=== PATIENT | female | born 1960 | race Caucasian/White ===

== ENCOUNTER 2022-10-28 23:31 | Inpatient (IN) | payer MEDICARE, OTHER ==
[2022-10-28] MEDS ORDERED: SODIUM CHLORIDE 0.9% 1,000 ML IV STA (23:59)
[2022-10-29 00:34] LABS: ALT 32 U/L (4-34); AST 130 U/L (14-36); African American GFR (CKD) 64 (>60 ml/min/1.73 sqM); Albumin 3.3 g/dL (3.5-5.0); Alkaline Phosphatase 78 U/L (38-126); Blood Urea Nitrogen 56 mg/dL (7-17); Calcium 7.3 mg/dL (8.4-10.2); Glucose 105 mg/dL (74-99); Magnesium 2.3 mg/dL (1.6-2.3); Non-African American GFR(CKD) 55 (>60 ml/min/1.73 sqM); Total Bilirubin 0.8 mg/dL (0.2-1.3); Total Protein 7.1 g/dL (6.3-8.2)
[2022-10-29 00:35] LABS: Basophils % (A) 0 %; Eosinophils # (A) 0.1 k/uL (0-0.7); Eosinophils % (A) 1 %; HCT 29.7 % (34.0-46.0); HGB 10.6 gm/dL (11.4-16.0); Lymphocytes # (A) 1.3 k/uL (1.0-4.8); Lymphocytes % (A) 11 %; MCH 28.3 pg (25.0-35.0); MCHC 35.9 g/dL (31.0-37.0); Mean Platelet Volume 7.9; Monocytes # (A) 0.5 k/uL (0-1.0); Monocytes % (A) 4 %; Neutrophils # (A) 9.6 k/uL (1.3-7.7); Neutrophils % (A) 83 %; Platelet Count 283 k/uL (150-450); RBC 3.76 m/uL (3.80-5.40); RDW 15.6 % (11.5-15.5); WBC 11.6 k/uL (3.8-10.6)
[2022-10-29 00:40] LABS: Anion Gap 13 mmol/L
[2022-10-29 00:49] LABS: Chloride 60 mmol/L (98-107); Potassium 2.7 mmol/L (3.5-5.1); Sodium 116 mmol/L (137-145)
[2022-10-29 00:53] LABS: Carbon Dioxide 43 mmol/L (22-30)
[2022-10-29] MEDS ORDERED: SODIUM CHLORIDE 0.9% 500 ML 500 ML IV STA (00:54)
[2022-10-29] MEDS ORDERED: POTASSIUM CHLORIDE ER 20 MEQ TAB.ER PO ONE (00:57)
[2022-10-29] MEDS ORDERED: Potassium Replacement Protocol 1 EACH MISC MISCELLANE PRN (00:57)
[2022-10-29] MEDS ORDERED: NALOXONE 0.4 MG/ML 1 ML VIAL IV PRN (01:35)
[2022-10-29] MEDS ORDERED: ACETAMINOPHEN TAB 325 MG TAB PO PRN (01:35)
--- NOTE | 2022-10-29 01:35 | ED ---
General Adult HPI - General Chief complaint: Nausea/Vomiting/Diarrhea Stated complaint: Kidney Failure Time Seen by Provider: 10/28/22 23:56 Source: patient, RN notes reviewed, old records reviewed Mode of arrival: EMS - History of Present Illness Initial comments: Patient is a 62-year-old female who presents emergency Department as a transfer from [facility]. Was diagnosed there with esophagitis, enteritis on CT. She also had significant like tried abnormalities including AKA, hypokalemia, hyponatremia. Possible pneumonia on chest x-ray and was empirically treated with antibiotics. She has a history of bulimia and has been having nausea and vomiting for multiple days prior to arrival. Patient was given IV replacement for potassium but no IV fluids otherwise. Patient presents as a transfer. She has no acute complaints when I evaluated the patient. She states she is chronically on 2-3 L nasal cannula oxygen. - Related Data Allergies Allergy/AdvReac Type Severity Reaction Status Date / Time prochlorperazine Allergy Unknown Verified 10/28/22 23:42 Review of Systems ROS Statement: Those systems with pertinent positive or pertinent negative responses have been documented in the HPI. Review of Systems: CONST: Denies fever EYES: Denies blurry vision ENT: Denies nasal congestion C/V: Denies Chest pain RESP: Denies shortness of breath GI: Denies abdominal pain : Denies dysuria SKIN: Denies rash. MSK: Denies joint pain. NEURO: Denies headache ROS Other: All systems not noted in ROS Statement are negative. Past Medical History Past Medical History: GERD/Reflux, Hypertension Additional Past Medical History / Comment(s): bulimia, electrolyte imbalance, wernickes encephalopathy, hypothyroidism, Past Surgical History: No Surgical Hx Reported Past Psychological History: Anxiety, Depression Past Alcohol Use History: Daily Past Drug Use History: None Reported General Exam - General Exam Comments Initial Comments: General: Appears in no acute distress. HEAD: Normal with no signs of head trauma. EYES: PERRLA, EOMI, conjunctiva normal, no discharge. ENT: Hearing grossly intact, normal oropharynx. Dry mucous membranes. RESPIRATORY: Clear breath sounds bilaterally. No wheezes, rales, or rhonchi. Not hypoxic and baseline 3 L nasal cannula. C/V: Regular rate and rhythm. S1 and S2 auscultated, no edema, peripheral pulses 2+ and intact throughout ABD: Abd is soft, nontender, nondistended EXT: Normal range of motion, no obvious deformity SKIN: No rashes or lesions observed on exposed skin. NEURO: Alert and oriented x 4. Cranial nerves II-XII intact. No focal sensory or strength deficits. Course Vital Signs 10/28/22 10/28/22 23:33 23:41 Temperature 98.4 F Pulse Rate 82 Respiratory 16 Rate Blood Pressure 119/71 O2 Sat by Pulse 93 L Oximetry Medical Decision Making - Medical Decision Making Was pt. sent in by a medical professional or institution (, PA, CERTIFIED MEDICAL ASST, urgent care, hospital, or intermediate...) When possible be specific @ -Transferred from [facility]. Did you speak to anyone other than the patient for history (EMS, parent, family, police, friend...)? What history was obtained from this source @ -No Did you review nursing and triage notes (agree or disagree)? Why? @ -I reviewed and agree with nursing and triage notes Were old charts reviewed (outside hosp., previous admission, EMS record, old EKG, old radiological studies, urgent care reports/EKG's, intermediate records)? Report findings @ -Reviewed charts from [facility] including results of labs and imaging. Images were uploaded twice system. Differential Diagnosis (chest pain, altered mental status, abdominal pain women, abdominal pain men, vaginal bleeding, weakness, fever, dyspnea, syncope, headache, dizziness, GI bleed, back pain, seizure, CVA, palpatations, mental health, musculoskeletal)? @ -Differential Weakness: Hypoglycemia, shock, sepsis, hyponatremia, anemia, infection, MA, ETOH, adverse medicine reaction, overdose, stroke, this is not meant to be an all-inclusive list. EKG interpreted by me (3pts min.). @ -As above X-rays interpreted by me (1pt min.). @ -None done CT interpreted by me (1pt min.). @ -None done U/S interpreted by me (1pt. min.). @ -None done What testing was considered but not performed or refused? (CT, X-rays, U/S, labs)? Why? @ -None What meds were considered but not given or refused? Why? @ -None Did you discuss the management of the patient with other professionals (professionals i.e. , WILLIE, CERTIFIED MEDICAL ASST, lab, RT, psych nurse, social media marketing specialist, employment manager, teacher, mortgage loan officer, high risk case manager)? Give summary @ -No Was smoking cessation discussed for >3mins.? @ -No Was critical care preformed (if so, how long)? @ -No Were there social determinants of health that impacted care today? How? (Homelessness, low income, unemployed, alcoholism, drug addiction, transportation, low edu. Level, literacy, decrease access to med. care, shelter, rehab)? @ -No Was there de-escalation of care discussed even if they declined (Discuss DNR or withdrawal of care, Hospice)? DNR status @ -No What co-morbidities impacted this encounter? (DM, HTN, Smoking, COPD, CAD, Cancer, CVA, ARF, Chemo, Hep., AIDS, mental health diagnosis, sleep apnea, morbid obesity)? @ -Bulimia Was patient admitted / discharged? Hospital course, mention meds given and route, prescriptions, significant lab abnormalities, going to OR and other pert inent info. @ -Based on patient's presentation and physical exam, presents with enteritis, significant electrolyte abnormalities secondary to nausea and vomiting. We will repeat labs and then admit the patient. She was in agreement this plan. She was started on maintenance fluids as they did not administer any IV fluids at the outside facility. She did receive IV potassium. She is resting comfortable at this time. Patient's labs are remarkable for a mild leukocytosis of 11.6, a microcytic anemia with a hemoglobin 10.6. Patient is hyponatremic to 116 and hypokalemic t o 60, both likely secondary to dehydration due to her significant nausea and vomiting as well as inadequate fluid replenishment. Patient also is hypokalemic to 2.7. We will replenish additional potassium and patient will be given a 500 L fluid bolus as well as started on maintenance fluids. Patient was in agreement this plan. I spoke with the admitting physician, Dr. Thayer who was also in agreement this plan. Patient will be admitted to a telemetry bed in serious condition. Undiagnosed new problem with uncertain prognosis? @ -No Drug Therapy requiring intensive monitoring for toxicity (Heparin, Nitro, Insulin, Cardizem)? @ -No Were any procedures done? @ -No Diagnosis/symptom? @ -Hyponatremia, hypokalemia, dehydration Acute, or Chronic, or Acute on Chronic? @ -Acute Uncomplicated (without systemic symptoms) or Complicated (systemic symptoms)? @ -Complicated Side effects of treatment? @ -No Exacerbation, Progression, or Severe Exacerbation? @ -No Poses a threat to life or bodily function? How? (Chest pain, USA, MA, pneumonia, PE, COPD, DKA, ARF, appy, cholecystitis, CVA, Diverticulitis, Homicidal, Suicidal, threat to staff... and all critical care pts) @ -Yes - Lab Data Result diagrams: 10/29/22 00:12 10/29/22 00:12 Lab Results 10/29/22 10/29/22 Range/Units 00:12 00:12 WBC 11.6 H (3.8-10.6) k/uL RBC 3.76 L (3.80-5.40) m/uL Hgb 10.6 L (11.4-16.0) gm/dL Hct 29.7 L (34.0-46.0) % MCV 79.0 L (80.0-100.0) fL MCH 28.3 (25.0-35.0) pg MCHC 35.9 (31.0-37.0) g/dL RDW 15.6 H (11.5-15.5) % Plt Count 283 (150-450) k/uL MPV 7.9 Neutrophils % 83 % Lymphocytes % 11 % Monocytes % 4 % Eosinophils % 1 % Basophils % 0 % Neutrophils # 9.6 H (1.3-7.7) k/uL Lymphocytes # 1.3 (1.0-4.8) k/uL Monocytes # 0.5 (0-1.0) k/uL Eosinophils # 0.1 (0-0.7) k/uL Basophils # 0.0 (0-0.2) k/uL Sodium 116 L* (137-145) mmol/L Potassium 2.7 L* (3.5-5.1) mmol/L Chloride 60 L* (98-107) mmol/L Carbon Dioxide 43 H* (22-30) mmol/L Anion Gap 13 mmol/L BUN 56 H (7-17) mg/dL Creatinine 1.07 H (0.52-1.04) mg/dL Est GFR (CKD-EPI)AfAm 64 (>60 ml/min/1.73 sqM) Est GFR (CKD-EPI)NonAf 55 (>60 ml/min/1.73 sqM) Glucose 105 H (74-99) mg/dL Calcium 7.3 L (8.4-10.2) mg/dL Magnesium 2.3 (1.6-2.3) mg/dL Total Bilirubin 0.8 (0.2-1.3) mg/dL AST 130 H (14-36) U/L ALT 32 (4-34) U/L Alkaline Phosphatase 78 (38-126) U/L Total Protein 7.1 (6.3-8.2) g/dL Albumin 3.3 L (3.5-5.0) g/dL - EKG Data -: EKG Interpreted by Me EKG Comments: 12-lead Electrocardiogram Interpretation Note EKG was reviewed and interpreted by myself. 12-lead ECG performed at 2342 is interpreted by me as revealing normal sinus rhythm at a rate of 81 beats per minute. [place] is normal. NM interval is 169 ms, QRS duration is 92 ms, QTc is 424 ms.. There were no ST or T wave abnormalities to suggest myocardial isch emia or injury. R wave progression across the precordium was satisfactory. By my interpretation this EKG is non-diagnostic for acute ischemia. Disposition Clinical Impression: Dehydration, Hyponatremia, Hypokalemia, Enteritis Disposition: ADMITTED IP TO THIS HOSP Condition: Serious Time of Disposition: 01:22
[2022-10-29] MEDS: POTASSIUM CHLORIDE 10 MEQ in WATER FOR INJECTION 1 100ML.BAG IVPB SCH ×10 (02:32→23:12)
[2022-10-29 05:08] LABS: Appearance,Urine Clear (Clear); Bilirubin,Urine Negative (Negative); Blood,Urine Negative (Negative); Color,Urine Light Yellow; Glucose,Urine (UA) Negative (Negative); Ketones,Urine Negative (Negative); Leukocyte Esterase,Urine Negative (Negative); Nitrite,Urine Negative (Negative); Protein,Urine Trace (Negative); Specific Gravity,Urine 1.013 (1.001-1.035); Urobilinogen,Urine <2.0 mg/dL (<2.0)
[2022-10-29] MEDS ORDERED: Acetaminophen-Codeine 300-30mg TAB PO PRN (09:08)
[2022-10-29 11:23] LABS: Basophils % (A) 0 %; Eosinophils % (A) 0 %; HCT 26.8 % (34.0-46.0); Lymphocytes # (A) 1.1 k/uL (1.0-4.8); Lymphocytes % (A) 12 %; MCH 27.7 pg (25.0-35.0); MCV 81.5 fL (80.0-100.0); Mean Platelet Volume 8.4; Monocytes # (A) 0.5 k/uL (0-1.0); Monocytes % (A) 5 %; Neutrophils # (A) 7.7 k/uL (1.3-7.7); Neutrophils % (A) 82 %; Platelet Count 280 k/uL (150-450); RBC 3.29 m/uL (3.80-5.40); RDW 15.8 % (11.5-15.5); WBC 9.4 k/uL (3.8-10.6)
[2022-10-29 11:31] LABS: HGB 9.1 gm/dL (11.4-16.0)
[2022-10-29 11:37] LABS: African American GFR (CKD) 88 (>60 ml/min/1.73 sqM); Blood Urea Nitrogen 32 mg/dL (7-17); Glucose 99 mg/dL (74-99); Magnesium 2.1 mg/dL (1.6-2.3); Non-African American GFR(CKD) 76 (>60 ml/min/1.73 sqM); Sodium 123 mmol/L (137-145)
[2022-10-29 11:43] LABS: Anion Gap 8 mmol/L
[2022-10-29 11:44] LABS: Chloride 72 mmol/L (98-107); Potassium 2.3 mmol/L (3.5-5.1)
--- NOTE | 2022-10-29 11:45 | P.NPCON ---
History of Present Illness - Reason for Consult hyponatremia - History of Present Illness Patient is a 62-year-old female who was transferred from [facility]. Patient is unable to provide a history. Apparently she there was history of nausea and vomiting. Patient has not had any diarrhea or emesis while she has been here. There is underlying history of bulimia and history of multiple visits to ER for electrolyte abnormalities and volume depletion and dehydration. Patient is noted to have severe hyponatremia with sodium of 116 and potassium of 2.7. Serum creatinine was 1.0. Patient is currently maintained on normal saline. Repeat labs are pending. No fever cough noted currently. No complaints of chest pain. He shouldn't is not able to provide history. She has not voided since she has been in the ER. Blood pressure is on the lower side with systolic in the 90s to low 100 Review of Systems As per HPI Past Medical History Past Medical History: GERD/Reflux, Hypertension Additional Past Medical History / Comment(s): bulimia, electrolyte imbalance, wernickes encephalopathy, hypothyroidism, Past Surgical History: No Surgical Hx Reported Past Psychological History: Anxiety, Depression Past Alcohol Use History: Daily Past Drug Use History: None Reported Medications and Allergies Allergies Allergy/AdvReac Type Severity Reaction Status Date / Time prochlorperazine Allergy Unknown Verified 10/28/22 23:42 Physical Exam Vitals: Vital Signs Temp Pulse Resp BP Pulse Ox 10/29/22 11:14 72 20 97/61 99 10/29/22 09:35 77 20 100/53 98 10/29/22 07:37 98.4 F 78 18 102/68 100 10/29/22 06:56 100/61 10/29/22 06:00 78 16 100 10/29/22 03:32 80 16 102/52 98 10/28/22 23:41 119/71 10/28/22 23:33 98.4 F 82 16 93 L Intake and Output 10/28/22 10/29/22 10/29/22 22:59 06:59 14:59 Other: Weight 49.442 kg Patient is awake. Confused Comfortable in no acute distress Examination of the heart S1 and S2 Examination of the lungs bilateral breath sounds are heard Abdomen is soft nontender Examination of lower extremity shows no significant edema PROFESSIONAL CASTER exam shows patient is able to move all 4 extremities. Results - Lab Results Most recent lab results Calcium 7.3 mg/dL (8.4-10.2) L 10/29/22 00:12 Magnesium 2.3 mg/dL (1.6-2.3) 10/29/22 00:12 10/29/22 11:13 10/29/22 00:12 Assessment and Plan Assessment: 1. Hyponatremia, hypovolemic currently maintained on normal saline. Repeat labs stat to avoid rapid correction of hyponatremia. Urine osmolality and urine sodium is currently pending 2. Hypokalemia associated with vomiting and decreased oral intake. There is underlying history of bulimia as well. 3. Volume depletion 4. History of bulimia 5. Acute kidney injury associated with volume depletion currently maintained on IV fluids. Rule out urine retention 6. Metabolic alkalosis associated with vomiting and history of bulimia Plan: May continue with saline for now Check labs stat Check bladder scan and rule out urine retention Continue to monitor electrolytes every 4-6 hours. Thank you for the consultation. We will continue to follow the patient with you during her hospitalization.
[2022-10-29 11:48] LABS: Carbon Dioxide 43 mmol/L (22-30)
[2022-10-29] MEDS ORDERED: LORazepam 2 MG/ML INJ IV PRN ×2 (12:56)
[2022-10-29] MEDS ORDERED: LORazepam 1 MG TAB PO PRN (12:56)
[2022-10-29] MEDS ORDERED: chlordiazePOXIDE 25 MG CAP PO PRN (12:56)
[2022-10-29] MEDS ORDERED: THIAMINE 100 MG/ML 2 ML VIAL IM STA (12:56)
--- NOTE | 2022-10-29 13:09 | P.HPIM ---
History of Present Illness H&P Date: 10/29/22 * 62-year-old lady with past medical history significant for alcohol use disorder, Wernicke's encephalopathy, hypertension, history of bulimia nervosa, hypothyroidism was sent in from outside hospital secondary to significant electrolyte abnormalities, episode of nausea, vomiting. * Patient had complained of abdominal pain at outside hospital and CT abdomen pelvis was done which showed esophagitis with possible enteritis and bilateral lower lobe pneumonia. Patient was given IV fluids and received IV antibiotics including Rocephin and was transferred to [facility] for further management * Workup initiated in ER showed acute hyponatremia with sodium of 116, serum sodium and outside hospital was 122 and potassium of 2.2 * Patient was given fluid bolus, serum and urine electrolytes ordered nephrology consulted * Patient does have history of alcohol use and seemed agitated and aggressive at the time of presentation diffusing exam and diffusing to answer questions needing a sitter history is limited secondary to lack of patient cooperation REVIEW OF SYSTEMS: Limited secondary to lack of patient cooperation patient does complain of abdominal pain patient very anxious PHYSICAL EXAMINATION: GENERAL: Patient is awake however disoriented, hyperactive aggressive refusing complete exam HEENT: Pupils are round and equally reacting to light. EOMI. CARDIOVASCULAR: S1 and S2 present. No murmurs, rubs, or gallops. PULMONARY: Chest is clear to auscultation, no wheezing or crackles. ABDOMEN: Soft, nontender, nondistended, NEUROLOGICAL: Gross neurological examination did not reveal any focal deficits. complete exam not done patient disoriented, uncooperative Past Medical History Past Medical History: GERD/Reflux, Hypertension Additional Past Medical History / Comment(s): bulimia, electrolyte imbalance, wernickes encephalopathy, hypothyroidism, Past Surgical History: No Surgical Hx Reported Past Psychological History: Anxiety, Depression Past Alcohol Use History: Daily Past Drug Use History: None Reported Medications and Allergies Allergies Allergy/AdvReac Type Severity Reaction Status Date / Time prochlorperazine Allergy Unknown Verified 10/28/22 23:42 Physical Exam Vitals: Vital Signs Temp Pulse Resp BP Pulse Ox 10/29/22 11:14 72 20 97/61 99 10/29/22 09:35 77 20 100/53 98 10/29/22 07:37 98.4 F 78 18 102/68 100 10/29/22 06:56 100/61 10/29/22 06:00 78 16 100 10/29/22 03:32 80 16 102/52 98 10/28/22 23:41 119/71 10/28/22 23:33 98.4 F 82 16 93 L Intake and Output 10/28/22 10/29/22 10/29/22 22:59 06:59 14:59 Other: Weight 49.442 kg Results CBC & Chem 7: 10/29/22 11:13 10/29/22 11:13 Labs: Abnormal Lab Results - Last 24 Hours (Table) 10/29/22 10/29/22 10/29/22 Range/Units 00:12 00:12 04:43 WBC 11.6 H (3.8-10.6) k/uL RBC 3.76 L (3.80-5.40) m/uL Hgb 10.6 L (11.4-16.0) gm/dL Hct 29.7 L (34.0-46.0) % MCV 79.0 L (80.0-100.0) fL RDW 15.6 H (11.5-15.5) % Neutrophils # 9.6 H (1.3-7.7) k/uL Sodium 116 L* (137-145) mmol/L Potassium 2.7 L* (3.5-5.1) mmol/L Chloride 60 L* (98-107) mmol/L Carbon Dioxide 43 H* (22-30) mmol/L BUN 56 H (7-17) mg/dL Creatinine 1.07 H (0.52-1.04) mg/dL Glucose 105 H (74-99) mg/dL Osmolality (280-301) mosm/kg Calcium 7.3 L (8.4-10.2) mg/dL AST 130 H (14-36) U/L Albumin 3.3 L (3.5-5.0) g/dL Urine Protein Trace H (Negative) 10/29/22 10/29/22 Range/Units 11:13 11:13 WBC (3.8-10.6) k/uL RBC 3.29 L (3.80-5.40) m/uL Hgb 9.1 L D (11.4-16.0) gm/dL Hct 26.8 L (34.0-46.0) % MCV (80.0-100.0) fL RDW 15.8 H (11.5-15.5) % Neutrophils # (1.3-7.7) k/uL Sodium 123 L (137-145) mmol/L Potassium 2.3 L* (3.5-5.1) mmol/L Chloride 72 L* (98-107) mmol/L Carbon Dioxide 43 H* (22-30) mmol/L BUN 32 H (7-17) mg/dL Creatinine (0.52-1.04) mg/dL Glucose (74-99) mg/dL Osmolality 267 L (280-301) mosm/kg Calcium 7.0 L (8.4-10.2) mg/dL AST (14-36) U/L Albumin (3.5-5.0) g/dL Urine Protein (Negative) Assessment and Plan Assessment: Assessment and plan * Acute metabolic encephalopathy * Acute hyponatremia secondary to hypovolemia * Severe hypokalemia * History of bulimia * Acute kidney injury prerenal * Metabolic alkalosis associated with vomiting and history of bulimia * Acute enteritis * Multifocal pneumonia * Hx of alcohol use and Wernicke's encephalopathy * In regards to electrolytes abnormality, monitor serum sodium levels, nephrology consulted monitor for overcorrection of sodium levels, continue IV fluid * In regards to alcohol use patient placed on Esa protocol use Ativan as needed * In regards to pneumonia per documentation from outside hospital , we started on Rocephin and Flagyl. Follow-up chest x-ray ordered, follow-up and pro- calcitonin levels antibiotic to be DSA today pending clinical course * In regard to enteritis patient had CT done at outside hospital monitor for diarrhea. Continue Rocephin and Flagyl * Home medication reconciliation pending * Patient has been agitated and uncooperative requiring a sitter * CODE STATUS is full code by default patient encephalopathic
[2022-10-29] MEDS ORDERED: POTASSIUM CHLORIDE 20 MEQ in WATER FOR INJECTION 1 100ML.BAG IVPB ONE (14:00)
[2022-10-29 14:12] LABS: Potassium 2.3 mmol/L (3.5-5.1)
--- NOTE | 2022-10-29 14:12 | XR ---
EXAMINATION TYPE: XR chest 1V DATE OF EXAM: 10/29/2022 COMPARISON: 10/28/2022 earlier exam INDICATION: Pneumonia TECHNIQUE: Single frontal view of the chest is obtained. FINDINGS: The heart size is normal. The pulmonary vasculature is normal. The lungs are clear. Right shoulder prosthesis present. Bibasilar atelectasis has likely resolved over the interval IMPRESSION: 1. No acute pulmonary process.
[2022-10-29] MEDS: ENOXAPARIN 40 MG/0.4 ML SYRINGE SQ SCH (14:13)
[2022-10-29] MEDS: NICOTINE 14MG/24HR PATCH TRANSDERM SCH (14:37)
[2022-10-29] MEDS: SODIUM CHLORIDE 0.9% 1,000 ML IV SCH (14:39)
[2022-10-29] MEDS ORDERED: guaiFENesin SYRUP 100MG/5ML 200 MG/10 ML CUP PO PRN (14:49)
[2022-10-29] MEDS: POTASSIUM CHLORIDE ER 20 MEQ TAB.ER PO SCH ×2 (15:41→16:59)
[2022-10-29] MEDS: SUCRALFATE 1 GM TAB PO SCH (15:43)
[2022-10-29] MEDS: metroNIDAZOLE 500 MG TAB PO SCH ×2 (15:43→20:25)
[2022-10-29] MEDS: PANTOPRAZOLE 40 MG/10 ML VIAL IVP SCH (20:25)
[2022-10-29] MEDS: MIRTAZAPINE 45 MG TABLET PO SCH (21:58)
[2022-10-29] MEDS: ONDANSETRON 4 MG/2 ML VIAL IVP PRN (21:58)
[2022-10-30 00:04] LABS: Potassium 3.4 mmol/L (3.5-5.1)
[2022-10-30] MEDS: SODIUM CHLORIDE 0.9% 1,000 ML IV SCH (07:56)
[2022-10-30] MEDS ORDERED: Potassium Replacement Protocol 1 EACH MISC MISCELLANE PRN (08:02)
[2022-10-30] MEDS: PANTOPRAZOLE 40 MG/10 ML VIAL IVP SCH ×2 (08:07→22:47)
[2022-10-30] MEDS: LACTULOSE 20 GM/30 ML CUP PO SCH (08:07)
[2022-10-30] MEDS: ONDANSETRON 4 MG/2 ML VIAL IVP PRN (08:07)
[2022-10-30] MEDS: FOLIC ACID 1 MG TAB PO SCH (08:08)
[2022-10-30] MEDS: metroNIDAZOLE 500 MG TAB PO SCH ×3 (08:08→22:47)
[2022-10-30] MEDS: SUCRALFATE 1 GM TAB PO SCH ×3 (08:08→16:45)
[2022-10-30] MEDS: NICOTINE 14MG/24HR PATCH TRANSDERM SCH (08:08)
[2022-10-30] MEDS: ENOXAPARIN 40 MG/0.4 ML SYRINGE SQ SCH (08:08)
[2022-10-30] MEDS ORDERED: FOLIC ACID 1 MG TAB PO SCH (09:00)
[2022-10-30 10:09] LABS: African American GFR (CKD) >90 (>60 ml/min/1.73 sqM); Anion Gap 9 mmol/L; Blood Urea Nitrogen 17 mg/dL (7-17); Calcium 8.2 mg/dL (8.4-10.2); Carbon Dioxide 32 mmol/L (22-30); Chloride 88 mmol/L (98-107); Glucose 103 mg/dL (74-99); Non-African American GFR(CKD) >90 (>60 ml/min/1.73 sqM); Potassium 3.1 mmol/L (3.5-5.1); Sodium 129 mmol/L (137-145)
[2022-10-30] MEDS: POTASSIUM CHLORIDE ER 20 MEQ TAB.ER PO SCH ×2 (10:38→10:39)
[2022-10-30] MEDS ORDERED: DEXTROSE 5% IN WATER 1,000 ML IV ONE (10:58)
[2022-10-30] MEDS ORDERED: DEXTROSE 10% IN WATER 500 ML in EMPTY BAG 1 BAG IV SCH (11:00)
[2022-10-30 11:28] LABS: HCT 27.8 % (34.0-46.0); HGB 9.3 gm/dL (11.4-16.0); MCH 27.9 pg (25.0-35.0); MCHC 33.3 g/dL (31.0-37.0); MCV 83.9 fL (80.0-100.0); Platelet Count 284 k/uL (150-450); RBC 3.31 m/uL (3.80-5.40); RDW 15.5 % (11.5-15.5)
--- NOTE | 2022-10-30 11:31 | P.PN ---
Subjective Patient is seen in follow-up for electrolyte imbalance. Potassium level improving with aggressive replacement. Sodium level up to 129 this morning. Currently receiving normal saline at 60 mL an hour. Denies chest pain or shortness of breath. Requesting more water to drink. Vital signs are stable. General: No acute distress. HEENT: Head exam is unremarkable. LUNGS: No audible rhonchi or wheezes. HEART: Rate and Rhythm are regular. ABDOMEN: Nontender. EXTREMITITES: No edema. Objective - Vital Signs Vital signs: Vital Signs Temp 98.2 F 10/30/22 07:55 Pulse 97 10/30/22 07:55 Resp 16 10/30/22 07:55 BP 126/62 10/30/22 07:55 Pulse Ox 98 10/30/22 07:55 FiO2 Intake & Output 10/29/22 10/30/22 10/30/22 18:59 06:59 18:59 Intake Total 50 Output Total 300 200 Balance 50 -300 -200 Intake: Oral 50 Output: Urine 300 200 Other: Voiding Method Diaper Diaper Diaper # Voids 1 2 - Labs CBC & Chem 7: 10/29/22 11:13 10/30/22 09:45 Labs: Abnormal Lab Results - Last 24 Hours (Table) 10/29/22 10/29/22 10/29/22 Range/Units 11:13 11:13 13:25 RBC 3.29 L (3.80-5.40) m/uL Hgb 9.1 L D (11.4-16.0) gm/dL Hct 26.8 L (34.0-46.0) % RDW 15.8 H (11.5-15.5) % Sodium 123 L 122 L (137-145) mmol/L Potassium 2.3 L* 2.3 L* (3.5-5.1) mmol/L Chloride 72 L* 72 L* (98-107) mmol/L Carbon Dioxide 43 H* 40 H (22-30) mmol/L BUN 32 H (7-17) mg/dL Glucose (74-99) mg/dL Osmolality 267 L (280-301) mosm/kg Calcium 7.0 L (8.4-10.2) mg/dL C-Reactive Protein (<1.0) mg/dL 08/06/23 08/07/23 Range/Units 23:11 09:45 RBC (3.80-5.40) m/uL Hgb (11.4-16.0) gm/dL Hct (34.0-46.0) % RDW (11.5-15.5) % Sodium 124 L 129 L (137-145) mmol/L Potassium 3.4 L 3.1 L (3.5-5.1) mmol/L Chloride 81 L 88 L (98-107) mmol/L Carbon Dioxide 39 H 32 H (22-30) mmol/L BUN (7-17) mg/dL Glucose 103 H (74-99) mg/dL Osmolality (280-301) mosm/kg Calcium 8.2 L (8.4-10.2) mg/dL C-Reactive Protein 7.0 H (<1.0) mg/dL Assessment and Plan Plan: Assessment: 1. Hypovolemic hyponatremia improving with IV hydration. Sodium level CXXIX this morning. Urine osmolality 507. 2. Hypokalemia from poor intake and renal losses. Being replaced. 3. Hypovolemia from vomiting. 4. Metabolic alkalosis from vomiting and volume contraction. Hypokalemia will further impair bicarb excretion. 5. Bulimia. 6. Acute kidney injury mostly prerenal secondary to hypovolemia. Improved with IV hydration. Plan: Change IV fluids to D5W at 150 mL an hour. Replace potassium. Prevent further rise in sodium level. Repeat sodium level this afternoon. Liberalize fluid restriction to 2 L per day. Check TSH.
[2022-10-30] MEDS ORDERED: POTASSIUM CHLORIDE ER 20 MEQ TAB.ER PO STA ×2 (12:20→16:42)
--- NOTE | 2022-10-30 14:49 | P.PN ---
Subjective Progress Note Date: 10/30/22 62-year-old lady with past medical history significant for alcohol use disorder, Wernicke's encephalopathy, hypertension, history of bulimia nervosa, hypothyroidism was sent in from outside hospital secondary to significant electrolyte abnormalities, episode of nausea, vomiting. * Patient had complained of abdominal pain at outside hospital and CT abdomen pelvis was done which showed esophagitis with possible enteritis and bilateral lower lobe pneumonia. Patient was given IV fluids and received IV antibiotics including Rocephin and was transferred to [facility] for [facility] management * Workup initiated in ER showed acute hyponatremia with sodium of 116, serum sodium and outside hospital was 122 and potassium of 2.2 * Patient was given fluid bolus, serum and urine electrolytes ordered nephrology consulted 10/30. Patient seen and examined. Sodium level this morning 129, potassium 3.1, BUN is 17, creatinine 0.56. Patient having nausea and vomiting REVIEW OF SYSTEMS: CONSTITUTIONAL: No fever, no malaise,. CARDIOVASCULAR: No chest pain, no palpitations, no syncope. PULMONARY: No shortness of breath, no cough, GASTROINTESTINAL: No diarrhea, no abdominal pain. NEUROLOGICAL: No headaches, no weakness, PHYSICAL EXAMINATION: GENERAL: The patient is alert and oriented x3, not in any acute distress. Well developed, well nourished. HEENT: Pupils are round and equally reacting to light. EOMI. No scleral icterus. No conjunctival pallor. Normocephalic, atraumatic. No pharyngeal erythema. No thyromegaly. CARDIOVASCULAR: S1 and S2 present. No murmurs, rubs, or gallops. PULMONARY: Chest is clear to auscultation, no wheezing or crackles. ABDOMEN: Soft, nontender, nondistended, normoactive bowel sounds. No palpable organomegaly. MUSCULOSKELETAL: No joint swelling or deformity. EXTREMITIES: No cyanosis, clubbing, or pedal edema. NEUROLOGICAL: Gross neurological examination did not reveal any focal deficits. SKIN: No rashes. Assessment and plan Acute metabolic encephalopathy * Acute hyponatremia secondary to hypovolemia * Severe hypokalemia * History of bulimia * Acute kidney injury prerenal * Metabolic alkalosis associated with vomiting and history of bulimia * Acute enteritis * Multifocal pneumonia * Hx of alcohol use and Wernicke's encephalopathy * In regards to electrolytes abnormality, monitor serum sodium levels, continue IV fluid, nephrology following * In regards to alcohol use patient placed on CIWA protocol use Ativan as needed * In regards to pneumonia per documentation from outside hospital , we started on Rocephin and Flagyl. Follow-up chest x-ray ordered, follow-up and pro- calcitonin levels antibiotic to be DSA today pending clinical course * In regard to enteritis patient had CT done at outside hospital monitor for diarrhea. Continue Rocephin and Flagyl * Home medication reconciliation pending Labs and medication were reviewed.. Continue same treatment. Continue with symptomatic treatment. Resume home medication. Monitor labs and vitals. DVT and GI prophylaxis. Further recommendations as per clinical course of the patient Dictation was produced using [employer] dictation software. please excuse any grammatical, word or spelling errors. Objective - Vital Signs Vital signs: Vital Signs Temp 98.2 F 10/30/22 07:55 Pulse 97 10/30/22 07:55 Resp 16 10/30/22 07:55 BP 126/62 10/30/22 07:55 Pulse Ox 98 10/30/22 07:55 FiO2 Intake & Output 10/29/22 10/30/22 10/30/22 18:59 06:59 18:59 Intake Total 50 Output Total 300 200 Balance 50 -300 -200 Intake: Oral 50 Output: Urine 300 200 Other: Voiding Method Diaper Diaper Diaper # Voids 1 2 - Labs CBC & Chem 7: 10/30/22 10:56 10/30/22 09:45 Labs: Abnormal Lab Results - Last 24 Hours (Table) 10/29/22 10/29/22 10/29/22 Range/Units 11:13 11:13 13:25 RBC 3.29 L (3.80-5.40) m/uL Hgb 9.1 L D (11.4-16.0) gm/dL Hct 26.8 L (34.0-46.0) % RDW 15.8 H (11.5-15.5) % Sodium 123 L 122 L (137-145) mmol/L Potassium 2.3 L* 2.3 L* (3.5-5.1) mmol/L Chloride 72 L* 72 L* (98-107) mmol/L Carbon Dioxide 43 H* 40 H (22-30) mmol/L BUN 32 H (7-17) mg/dL Glucose (74-99) mg/dL Osmolality 267 L (280-301) mosm/kg Calcium 7.0 L (8.4-10.2) mg/dL C-Reactive Protein (<1.0) mg/dL 10/29/22 10/30/22 Range/Units 23:11 09:45 RBC (3.80-5.40) m/uL Hgb (11.4-16.0) gm/dL Hct (34.0-46.0) % RDW (11.5-15.5) % Sodium 124 L 129 L (137-145) mmol/L Potassium 3.4 L 3.1 L (3.5-5.1) mmol/L Chloride 81 L 88 L (98-107) mmol/L Carbon Dioxide 39 H 32 H (22-30) mmol/L BUN (7-17) mg/dL Glucose 103 H (74-99) mg/dL Osmolality (280-301) mosm/kg Calcium 8.2 L (8.4-10.2) mg/dL C-Reactive Protein 7.0 H (<1.0) mg/dL
[2022-10-30 15:54] LABS: Potassium 3.2 mmol/L (3.5-5.1)
[2022-10-30] MEDS ORDERED: POTASSIUM CHLORIDE ER 10 MEQ TAB.ER.PRT PO STA (16:14)
[2022-10-30] MEDS ORDERED: POTASSIUM CHLORIDE ER 20 MEQ TAB.ER PO ONE (18:00)
[2022-10-30 21:10] LABS: Potassium 3.5 mmol/L (3.5-5.1)
[2022-10-30] MEDS: MIRTAZAPINE 45 MG TABLET PO SCH (22:47)
[2022-10-31 07:11] LABS: ALT 26 U/L (4-34); AST 36 U/L (14-36); African American GFR (CKD) >90 (>60 ml/min/1.73 sqM); Albumin 2.8 g/dL (3.5-5.0); Alkaline Phosphatase 72 U/L (38-126); Anion Gap 3 mmol/L; Blood Urea Nitrogen 12 mg/dL (7-17); Calcium 8.3 mg/dL (8.4-10.2); Carbon Dioxide 31 mmol/L (22-30); Chloride 96 mmol/L (98-107); Glucose 91 mg/dL (74-99); Magnesium 1.8 mg/dL (1.6-2.3); Non-African American GFR(CKD) >90 (>60 ml/min/1.73 sqM); Potassium 3.7 mmol/L (3.5-5.1); Sodium 130 mmol/L (137-145); Total Bilirubin 0.4 mg/dL (0.2-1.3); Total Protein 5.7 g/dL (6.3-8.2)
[2022-10-31 08:09] LABS: Basophils % (A) 0 %; Eosinophils # (A) 0.1 k/uL (0-0.7); Eosinophils % (A) 2 %; HCT 27.3 % (34.0-46.0); HGB 9.2 gm/dL (11.4-16.0); Lymphocytes # (A) 1.1 k/uL (1.0-4.8); Lymphocytes % (A) 29 %; MCH 28.4 pg (25.0-35.0); MCHC 33.6 g/dL (31.0-37.0); MCV 84.5 fL (80.0-100.0); Mean Platelet Volume 7.9; Monocytes # (A) 0.3 k/uL (0-1.0); Monocytes % (A) 9 %; Neutrophils # (A) 2.1 k/uL (1.3-7.7); Neutrophils % (A) 57 %; Platelet Count 303 k/uL (150-450); RBC 3.24 m/uL (3.80-5.40); WBC 3.7 k/uL (3.8-10.6)
[2022-10-31] MEDS: LACTULOSE 20 GM/30 ML CUP PO SCH (09:01)
[2022-10-31] MEDS: metroNIDAZOLE 500 MG TAB PO SCH ×2 (09:01→15:31)
[2022-10-31] MEDS: FOLIC ACID 1 MG TAB PO SCH (09:02)
[2022-10-31] MEDS: PANTOPRAZOLE 40 MG/10 ML VIAL IVP SCH (09:02)
[2022-10-31] MEDS: SUCRALFATE 1 GM TAB PO SCH ×3 (09:02→15:31)
[2022-10-31] MEDS: NICOTINE 14MG/24HR PATCH TRANSDERM SCH (09:02)
[2022-10-31] MEDS: ENOXAPARIN 40 MG/0.4 ML SYRINGE SQ SCH (09:02)
[2022-10-31] MEDS ORDERED: POTASSIUM CHLORIDE ER 20 MEQ TAB.ER PO STA (11:53)
--- NOTE | 2022-10-31 11:54 | P.PN ---
Subjective Patient is seen in follow-up for electrolyte imbalance. Potassium level improved. Sodium level up to 130 this morning. Denies chest pain or shortness of breath. No vomiting or diarrhea. Oral intake fair. Vital signs are stable. General: No acute distress. HEENT: Head exam is unremarkable. LUNGS: No audible rhonchi or wheezes. HEART: Rate and Rhythm are regular. ABDOMEN: Nontender. EXTREMITITES: No edema. Objective - Vital Signs Vital signs: Vital Signs Temp 97.9 F 10/31/22 09:17 Pulse 74 10/31/22 09:17 Resp 18 10/31/22 09:17 BP 112/68 10/31/22 09:17 Pulse Ox 96 10/31/22 09:17 FiO2 Intake & Output 10/30/22 10/31/22 10/31/22 18:59 06:59 18:59 Intake Total 236 440 200 Output Total 200 200 Balance 36 240 200 Intake: Oral 236 440 200 Output: Urine 200 200 Other: Voiding Method Diaper Diaper Diaper # Voids 2 - Labs CBC & Chem 7: 10/31/22 06:32 10/31/22 06:32 Labs: Abnormal Lab Results - Last 24 Hours (Table) 10/30/22 10/30/22 10/30/22 Range/Units 09:35 15:00 20:42 WBC (3.8-10.6) k/uL RBC (3.80-5.40) m/uL Hgb (11.4-16.0) gm/dL Hct (34.0-46.0) % RDW (11.5-15.5) % Sodium 126 L 126 L (137-145) mmol/L Potassium 3.2 L (3.5-5.1) mmol/L Chloride (98-107) mmol/L Carbon Dioxide (22-30) mmol/L Calcium (8.4-10.2) mg/dL Total Protein (6.3-8.2) g/dL Albumin (3.5-5.0) g/dL Procalcitonin 0.15 H (0.02-0.09) ng/mL 10/31/22 10/31/22 Range/Units 06:32 06:32 WBC 3.7 L (3.8-10.6) k/uL RBC 3.24 L (3.80-5.40) m/uL Hgb 9.2 L (11.4-16.0) gm/dL Hct 27.3 L (34.0-46.0) % RDW 16.0 H (11.5-15.5) % Sodium 130 L (137-145) mmol/L Potassium (3.5-5.1) mmol/L Chloride 96 L (98-107) mmol/L Carbon Dioxide 31 H (22-30) mmol/L Calcium 8.3 L (8.4-10.2) mg/dL Total Protein 5.7 L (6.3-8.2) g/dL Albumin 2.8 L (3.5-5.0) g/dL Procalcitonin (0.02-0.09) ng/mL Assessment and Plan Plan: Assessment: 1. Hypovolemic hyponatremia improving with IV hydration. Sodium level 130 this morning. Urine osmolality 507. Urine sodium 119. TSH normal. 2. Hypokalemia from poor intake and renal losses. Replace. Better. 3. Hypovolemia from vomiting. Improved with IV hydration. 4. Metabolic alkalosis from vomiting and volume contraction. Hypokalemia will further impair bicarb excretion. 5. Bulimia. 6. Acute kidney injury mostly prerenal secondary to hypovolemia. Improved with IV hydration. Plan: Encourage oral intake. Replace potassium. Repeat BMP and magnesium to treat his post discharge. Follow up outpatient in 1 week.
--- NOTE | 2022-10-31 13:22 | P.DS ---
Providers Date of admission: 10/29/22 01:35 Expected date of discharge: 10/31/22 Attending physician: Venkat Thayer MD Consults: 10/29/22 09:10 Consult Physician Routine Consulting Provider: Jeniffer Agustin Consult Reason/Comments: hyponatremia, JENN Do you want consulting provider notified?: Yes Primary care physician: Kwaku Vergara [facility] Course: Discharge diagnoses; Acute metabolic encephalopathy * Acute hyponatremia secondary to hypovolemia * Severe hypokalemia * History of bulimia * Acute kidney injury prerenal * Metabolic alkalosis associated with vomiting and history of bulimia * Acute enteritis * Multifocal pneumonia * Hx of alcohol use and Wernicke's encephalopathy Hospital course; 62-year-old lady with past medical history significant for alcohol use disorder, Wernicke's encephalopathy, hypertension, history of bulimia nervosa, hypothyroidism was sent in from outside hospital secondary to significant elec trolyte abnormalities, episode of nausea, vomiting. * Patient had complained of abdominal pain at outside hospital and CT abdomen pelvis was done which showed esophagitis with possible enteritis and bilateral lower lobe pneumonia. Patient was given IV fluids and received IV antibiotics including Rocephin and was transferred to [facility] for further management * Workup initiated in ER showed acute hyponatremia with sodium of 116, serum sodium and outside hospital was 122 and potassium of 2.2 * Patient was given fluid bolus, serum and urine electrolytes ordered nephrology consulted 10/30. Patient seen and examined. Sodium level this morning 129, potassium 3.1, BUN is 17, creatinine 0.56. Patient having nausea and vomiting 10/31. Patient seen and examined. Labs were done this morning showed sodium 1:30, potassium 3.7, BUN 12, creatinine 0.57. Hyponatremia improved, nephrology cleared the patient for discharge. Being discharged on oral Ceftin for 3 more days PHYSICAL EXAMINATION: GENERAL: The patient is alert and oriented x3, not in any acute distress. Well developed, well nourished. HEENT: Pupils are round and equally reacting to light. EOMI. No scleral icterus. No conjunctival pallor. Normocephalic, atraumatic. No pharyngeal erythema. No thyromegaly. CARDIOVASCULAR: S1 and S2 present. No murmurs, rubs, or gallops. PULMONARY: Chest is clear to auscultation, no wheezing or crackles. ABDOMEN: Soft, nontender, nondistended, normoactive bowel sounds. No palpable organomegaly. MUSCULOSKELETAL: No joint swelling or deformity. EXTREMITIES: No cyanosis, clubbing, or pedal edema. NEUROLOGICAL: Gross neurological examination did not reveal any focal deficits. SKIN: No rashes. Dictation was produced using [employer] dictation software. please excuse any grammatical, word or spelling errors. Patient Condition at Discharge: Serious Plan - Discharge Summary New Discharge Prescriptions: New cefUROXime axetiL [Cefuroxime] 500 mg PO BID 3 Days #6 tab Continue Calcium Carbonate [Tums] 1,000 mg PO Q8H PRN PRN Reason: Indigestion Magnesium Hydroxide [Milk of Magnesia] 2,400 mg PO DAILY PRN PRN Reason: Constipation Sucralfate [Carafate] 1 gm PO TID@0800,1300,1700 Potassium Chloride ER [K-Dur 20] 20 meq PO DAILY@0800 Multivitamins, Thera [Multivitamin (formulary)] 1 tab PO DAILY@0800 Metoprolol Tartrate [Lopressor] 12.5 mg PO DAILY@0800 traZODone HCL 150 mg PO HS@2000 Sodium Chloride Tab 1 gm PO DAILY@0800 Pantoprazole [Protonix] 40 mg PO DAILY@0800 bisacodyL [Dulcolax] 10 mg PO DAILY PRN PRN Reason: Constipation bisacodyL [Dulcolax] 10 mg RECTAL Q48H PRN PRN Reason: Constipation Na Phos,M-B/Na Phos,Di-Ba [Fleet Adult] 133 ml RECTAL DAILY PRN PRN Reason: Constipation Ondansetron [Zofran] 4 mg PO Q8H PRN PRN Reason: Nausea Mag Hydrox/Aluminum Hyd/Simeth [Mylanta Maximum Strength Liq] 20 ml PO Q8H PRN PRN Reason: Heartburn guaiFENesin [guaiFENesin Oral Solution] 200 mg PO Q4H PRN PRN Reason: Cough Lactose-Reduced Food [Boost] 240 ml PO QID@06,08,13,17 LORazepam [Ativan] 0.5 mg PO BID@0800,2000 Mirtazapine 45 mg PO HS@2000 Lactulose 20 gm PO DAILY@0800 Folic Acid 0.8 mg PO DAILY@0800 polyethylene glycoL 3350 [Miralax] 17 gm PO DAILY@0800 Levothyroxine Sodium [Synthroid] 125 mcg PO DAILY@0800 Health Shake 4 oz PO HS@1999 QUEtiapine FUMARATE [SEROquel XR] 300 mg PO HS Magnesium Oxide [Magox 400] 400 mg PO BID@0800,1700 Gabapentin [Neurontin] 200 mg PO BID@799,1999 Acetaminophen [Tylenol Arthritis] 650 mg PO Q6H PRN PRN Reason: Pain Or Fever > 100.5 Prochlorperazine Edisylate 10mg/2ml 10 mg IM ONCE PRN PRN Reason: Nausea Discharge Medication List Acetaminophen [Tylenol Arthritis] 650 mg PO Q6H PRN 10/29/22 [History] Calcium Carbonate [Tums] 1,000 mg PO Q8H PRN 10/29/22 [History] Folic Acid 0.8 mg PO DAILY@0800 10/29/22 [History] Gabapentin [Neurontin] 200 mg PO BID@799,199910/29/22 [History] Health Shake 4 oz PO HS@199910/29/22 [History] LORazepam [Ativan] 0.5 mg PO BID@08,199910/29/22 [History] Lactose-Reduced Food [Boost] 240 ml PO QID@06,08,,10/29/22 [History] Lactulose 20 gm PO DAILY@0800 10/29/22 [History] Levothyroxine Sodium [Synthroid] 125 mcg PO DAILY@0800 10/29/22 [History] Mag Hydrox/Aluminum Hyd/Simeth [Mylanta Maximum Strength Liq] 20 ml PO Q8H PRN 10/29/22 [History] Magnesium Hydroxide [Milk of Magnesia] 2,400 mg PO DAILY PRN 10/29/22 [History] Magnesium Oxide [Magox 400] 400 mg PO BID@0800,1700 10/29/22 [History] Metoprolol Tartrate [Lopressor] 12.5 mg PO DAILY@0800 10/29/22 [History] Mirtazapine 45 mg PO HS@199910/29/22 [History] Multivitamins, Thera [Multivitamin (formulary)] 1 tab PO DAILY@0810/29/22 [History] Na Phos,M-B/Na Phos,Di-Ba [Fleet Adult] 133 ml RECTAL DAILY PRN 10/29/22 [History] Ondansetron [Zofran] 4 mg PO Q8H PRN 10/29/22 [History] Pantoprazole [Protonix] 40 mg PO DAILY@0800 10/29/22 [History] Potassium Chloride ER [K-Dur 20] 20 meq PO DAILY@0810/29/22 [History] Prochlorperazine Edisylate 10mg/2ml 10 mg IM ONCE PRN 10/29/22 [History] QUEtiapine FUMARATE [SEROquel XR] 300 mg PO HS 10/29/22 [History] Sodium Chloride Tab 1 gm PO DAILY@0810/29/22 [History] Sucralfate [Carafate] 1 gm PO TID@0800,1300,1700 10/29/22 [History] bisacodyL [Dulcolax] 10 mg PO DAILY PRN 10/29/22 [History] bisacodyL [Dulcolax] 10 mg RECTAL Q48H PRN 10/29/22 [History] guaiFENesin [guaiFENesin Oral Solution] 200 mg PO Q4H PRN 10/29/22 [History] polyethylene glycoL 3350 [Miralax] 17 gm PO DAILY@0810/29/22 [History] traZODone HCL 150 mg PO HS@199910/29/22 [History] cefUROXime axetiL [Cefuroxime] 500 mg PO BID 3 Days #6 tab 10/31/22 [Rx] Follow up Appointment(s)/Referral(s): Kwaku Vergara MD [Primary Care Provider] - 1-2 days Discharge Disposition: TRANSFER TO SNF/ECF
[2022-10-31 17:15] VITALS: BP 159/98; PULSE 65; RESP 16; TEMP 97
== END 2022-10-31 17:22 | DRG 682 ==
LOC: EC 23:31 → 3SCARD 10-29 01:35 → EEVIPCON 10-29 01:35 → 3SCARD 10-29 11:02
PROVIDERS: ADMIT Internal Medicine; ATTEND Internal Medicine
DX: N17.9 Acute kidney failure, unspecified (principal); G93.41 Metabolic encephalopathy; J18.9 Pneumonia, unspecified organism; E87.1 Hypo-osmolality and hyponatremia; E87.3 Alkalosis; D50.9 Iron deficiency anemia, unspecified; E03.9 Hypothyroidism, unspecified; E86.0 Dehydration; E86.1 Hypovolemia; E87.6 Hypokalemia; F32.A Depression, unspecified; F41.9 Anxiety disorder, unspecified; I10 Essential (primary) hypertension; K52.9 Noninfective gastroenteritis and colitis, unspecified; Z86.59 Personal history of other mental and behavioral disorders
CPT/HCPCS: 36415; 71045; 80048; 80051; 80053; 81003; 83735; 83930; 83935; 84132; 84145; 84295; 84300; 84443; 85025; 85027; 86140; 93005; 96361; 96365; 96366; 99285

== ENCOUNTER 2022-11-02 02:33 | Inpatient (IN) | payer MEDICARE, OTHER ==
[2022-11-02] MEDS ORDERED: ALBUTEROL NEBULIZED 2.5 MG/3 ML INHALATION STA (02:40)
[2022-11-02] MEDS ORDERED: methylPREDNISolone SOD SUCCI 125 MG/2 ML VIAL IV STA (02:40)
[2022-11-02] MEDS ORDERED: IPRATROPIUM 0.5 MG/2.5 ML NEBU INHALATION STA (02:40)
[2022-11-02] MEDS ORDERED: SODIUM CHLORIDE 0.9% 1,000 ML IV ONE ×3 (02:54→09:42)
[2022-11-02] MEDS ORDERED: CEFEPIME 2 GM in SODIUM CHLORIDE 0.9% 100 ML IVPB STA (03:04)
--- NOTE | 2022-11-02 03:29 | ED ---
General Adult HPI - General Chief complaint: Shortness of Breath Stated complaint: SOB, Cough Time Seen by Provider: 11/02/22 02:34 Source: patient, EMS, RN notes reviewed, old records reviewed Mode of arrival: EMS Limitations: no limitations - History of Present Illness Initial comments: 62-year-old female history of bulimia, chronic vomiting, chronic electrolyte abnormalities and recent diagnosis of pneumonia presents for evaluation of vomiting, cough. Cough is productive of brown sputum. No measured fever. No chest pain. Patient was transferred from the shelter where she resides. She had a recent admission with electrolyte abnormalities and pneumonia diagnosis. Patient was hypoxic and required supplemental oxygen which is new for this patient. - Related Data Home Medications Medication Instructions Recorded Confirmed Acetaminophen [Tylenol Arthritis] 650 mg PO Q6H PRN 10/29/22 10/29/22 Calcium Carbonate [Tums] 1,000 mg PO Q8H PRN 10/29/22 10/29/22 Folic Acid 0.8 mg PO DAILY@79910/29/22 10/29/22 Gabapentin [Neurontin] 200 mg PO BID@799,199910/29/22 10/29/22 Health Shake 4 oz PO HS@199910/29/22 10/29/22 LORazepam [Ativan] 0.5 mg PO BID@799,199910/29/22 10/29/22 Lactose-Reduced Food [Boost] 240 ml PO QID@06,,,10/29/22 10/29/22 Lactulose 20 gm PO DAILY@79910/29/22 10/29/22 Levothyroxine Sodium [Synthroid] 125 mcg PO DAILY@79910/29/22 10/29/22 Mag Hydrox/Aluminum Hyd/Simeth 20 ml PO Q8H PRN 10/29/22 10/29/22 [Mylanta Maximum Strength Liq] Magnesium Hydroxide [Milk of 2,400 mg PO DAILY PRN 10/29/22 10/29/22 Magnesia] Magnesium Oxide [Magox 400] 400 mg PO BID@0800,1700 10/29/22 10/29/22 Metoprolol Tartrate [Lopressor] 12.5 mg PO DAILY@79910/29/22 10/29/22 Mirtazapine 45 mg PO HS@199910/29/22 10/29/22 Multivitamins, Thera [Multivitamin 1 tab PO DAILY@0810/29/22 10/29/22 (formulary)] Na Phos,M-B/Na Phos,Di-Ba [Fleet 133 ml RECTAL DAILY PRN 10/29/22 10/29/22 Adult] Ondansetron [Zofran] 4 mg PO Q8H PRN 10/29/22 10/29/22 Pantoprazole [Protonix] 40 mg PO DAILY@79910/29/22 10/29/22 Potassium Chloride ER [K-Dur 20] 20 meq PO DAILY@79910/29/22 10/29/22 Prochlorperazine Edisylate 10mg/2ml 10 mg IM ONCE PRN 10/29/22 10/29/22 QUEtiapine FUMARATE [SEROquel XR] 300 mg PO HS 10/29/22 10/29/22 Sodium Chloride Tab 1 gm PO DAILY@79910/29/22 10/29/22 Sucralfate [Carafate] 1 gm PO TID@0800,1300,1700 10/29/22 10/29/22 bisacodyL [Dulcolax] 10 mg PO DAILY PRN 10/29/22 10/29/22 bisacodyL [Dulcolax] 10 mg RECTAL Q48H PRN 10/29/22 10/29/22 guaiFENesin [guaiFENesin Oral 200 mg PO Q4H PRN 10/29/22 10/29/22 Solution] polyethylene glycoL 3350 [Miralax] 17 gm PO DAILY@79910/29/22 10/29/22 traZODone HCL 150 mg PO HS@199910/29/22 10/29/22 Previous Rx's Medication Instructions Recorded cefUROXime axetiL [Cefuroxime] 500 mg PO BID 3 Days #6 tab 10/31/22 Allergies Allergy/AdvReac Type Severity Reaction Status Date / Time prochlorperazine Allergy Unknown Verified 10/29/22 14:03 Review of Systems ROS Statement: Those systems with pertinent positive or pertinent negative responses have been documented in the HPI. ROS Other: All systems not noted in ROS Statement are negative. Past Medical History Past Medical History: GERD/Reflux, Hypertension Additional Past Medical History / Comment(s): bulimia, electrolyte imbalance, wernickes encephalopathy, hypothyroidism, History of Any Multi-Drug Resistant Organisms: Unobtainable Past Surgical History: No Surgical Hx Reported Past Anesthesia/Blood Transfusion Reactions: Unable to Obtain Past Psychological History: Anxiety, Depression Past Alcohol Use History: Daily Past Drug Use History: None Reported General Exam Limitations: no limitations General appearance: lethargic, in distress, cachectic Head exam: Present: atraumatic, normocephalic Eye exam: Present: normal appearance, PERRL ENT exam: Present: other (Brown vomit around the lips) Respiratory exam: Present: respiratory distress, rhonchi, other (Bronchospastic cough) Cardiovascular Exam: Present: normal rhythm, tachycardia GI/Abdominal exam: Present: soft. Absent: distended, tenderness, guarding Neurological exam: Present: alert. Absent: motor sensory deficit Psychiatric exam: Present: anxious Skin exam: Present: pallor. Absent: cyanosis, diaphoretic Course Vital Signs 11/02/22 11/02/22 11/02/22 02:37 03:23 03:47 Temperature 98.9 F Pulse Rate 168 H 163 H 174 H Respiratory 26 H Rate Blood Pressure 132/84 O2 Sat by Pulse 92 L Oximetry Fraction of Inspired Oxygen (FIO2) 11/02/22 11/02/22 11/02/22 04:57 05:00 05:12 Temperature Pulse Rate 125 H Respiratory 18 Rate Blood Pressure 114/73 O2 Sat by Pulse 100 Oximetry Fraction of 100 100 Inspired Oxygen (FIO2) 11/02/22 11/02/22 11/02/22 05:20 05:30 05:40 Temperature Pulse Rate 126 H 124 H 125 H Respiratory 20 18 24 Rate Blood Pressure 115/72 118/74 104/69 O2 Sat by Pulse 100 100 100 Oximetry Fraction of Inspired Oxygen (FIO2) 11/02/22 11/02/22 05:47 05:50 Temperature Pulse Rate 120 H Respiratory 20 Rate Blood Pressure 107/65 O2 Sat by Pulse 100 Oximetry Fraction of 40 Inspired Oxygen (FIO2) Procedures - Intubation Sedative: Etomidate Mg Given: 10 Paralytic: Succinylcholine Mg Given: 80 Laryngoscope: Roger Size: 3 ET Tube Size: 7 ET Tube Uncuffed: No Tube Secured Depth (cm): 21 Tube Secured Location: lips Tube Placement Confirmation: visualized tube passing through cords, equal breath sounds bilaterally, no breath sounds over epigastrium, confirmation by capnometry Patient Tolerated Procedure: well Intubation Complications: other (Laryngeal and upper airway edema) Medical Decision Making - Medical Decision Making Was pt. sent in by a medical professional or institution (WILLIE Doss, [employer]PERATOR, urgent care, hospital, or shelter...) When possible be specific @ -No Did you speak to anyone other than the patient for history (EMS, parent, family, police, friend...)? What history was obtained from this source @ -No Did you review nursing and triage notes (agree or disagree)? Why? @ -I reviewed and agree with nursing and triage notes Were old charts reviewed (outside hosp., previous admission, EMS record, old EKG, old radiological studies, urgent care reports/EKG's, shelter records)? Report findings @ -No old charts were reviewed Differential Diagnosis (chest pain, altered mental status, abdominal pain women, abdominal pain men, vaginal bleeding, weakness, fever, dyspnea, syncope, headache, dizziness, GI bleed, back pain, seizure, CVA, palpatations, mental health, musculoskeletal)? @ -Differential Dyspnea: Coronary syndrome, arrhythmia, tamponade, asthma, COPD, pulmonary embolism, pneumonia, pneumothorax, pulmonary effusion, anaphylaxis, diabetic ketoacidosis, flailed chest, pulmonary contusion, diaphragmatic rupture, anemia, neuromuscular, this is not meant to be an all-inclusive list. EKG interpreted by me (3pts min.). @ Tachycardia rate is 165 with frequent PVC significant tremor artifact limiting assessment, QRS duration is narrow at 65, QTC 374, no ST segment elevation. X-rays interpreted by me (1pt min.). @ -Distant intubation x-ray showing ET tube in appropriate location, opacity over the right lung field CT interpreted by me (1pt min.). @CT showing multifocal pneumonia on the right U/S interpreted by me (1pt. min.). @ -None done What testing was considered but not performed or refused? (CT, X-rays, U/S, labs)? Why? @ -None What meds were considered but not given or refused? Why? @ -None Did you discuss the management of the patient with other professionals (professionals i.e. WILLIE Doss, [employer]PERATOR, lab, RT, psych nurse, social services specialist, lead former, teacher, account officer, telephonic case manager)? Give summary @ -Dr. Avendano, [facility] Was smoking cessation discussed for >3mins.? @ -No Was critical care preformed (if so, how long)? @ -[Yes, 35 minutes Were there social determinants of health that impacted care today? How? (Homelessness, low income, unemployed, alcoholism, drug addiction, transportation, low edu. Level, literacy, decrease access to med. care, half-way, rehab)? @ -No Was there de-escalation of care discussed even if they declined (Discuss DNR or withdrawal of care, Hospice)? DNR status @ -No What co-morbidities impacted this encounter? (DM, HTN, Smoking, COPD, CAD, Cancer, CVA, ARF, Chemo, Hep., AIDS, mental health diagnosis, sleep apnea, morbid obesity)? @ -[Bulimia Was patient admitted / discharged? Hospital course, mention meds given and route, prescriptions, significant lab abnormalities, going to OR and other pertinent info. @ -62-year-old female presenting in extremis, hypoxic with stridor, coughing up brown sputum as well as copious amounts of dark vomit. Patient has leukocy tosis of 15, anemia 10.5. Trials of nebulized albuterol, Atrovent, steroids, antibiotics failed to improve the patient's clinical presentation and ultimately decision is made to intubate this patient for respiratory failure and airway protection. Patient is intubated with a 7.02. Her upper airway is extremely edematous. Patient will be admitted to ICU for continued care. Undiagnosed new problem with uncertain prognosis? @ -No Drug Therapy requiring intensive monitoring for toxicity (Heparin, Nitro, Insulin, Cardizem)? @ -No Were any procedures done? @Yes, intubation Diagnosis/symptom? @Respiratory failure, pneumonia Acute, or Chronic, or Acute on Chronic? @Acute Uncomplicated (without systemic symptoms) or Complicated (systemic symptoms)? @ -default Side effects of treatment? @ -No Exacerbation, Progression, or Severe Exacerbation? @ -No Poses a threat to life or bodily function? How? (Chest pain, [place], [place], pneumonia, PE, COPD, DKA, ARF, appy, cholecystitis, CVA, Diverticulitis, Homicidal, Suicidal, threat to staff... and all critical care pts) @ -Yes, respiratory failure requiring ventilator - Lab Data Result diagrams: 11/02/22 03:09 11/02/22 03:09 Lab Results 11/02/22 11/02/22 11/02/22 Range/Units 03:09 03:09 03:09 WBC 15.3 H (3.8-10.6) k/uL RBC 3.76 L (3.80-5.40) m/uL Hgb 10.5 L (11.4-16.0) gm/dL Hct 31.8 L (34.0-46.0) % MCV 84.8 (80.0-100.0) fL MCH 28.0 (25.0-35.0) pg MCHC 33.0 (31.0-37.0) g/dL RDW 16.6 H (11.5-15.5) % Plt Count 278 (150-450) k/uL MPV 8.6 Neutrophils % 96 % Lymphocytes % 3 % Monocytes % 1 % Eosinophils % 0 % Basophils % 0 % Neutrophils # 14.6 H (1.3-7.7) k/uL Lymphocytes # 0.4 L (1.0-4.8) k/uL Monocytes # 0.2 (0-1.0) k/uL Eosinophils # 0.0 (0-0.7) k/uL Basophils # 0.0 (0-0.2) k/uL Anisocytosis Slight PT 10.7 (9.0-12.0) sec INR 1.0 (<1.2) APTT 21.1 L (22.0-30.0) sec Sample Site ABG pH (7.35-7.45) ABG pCO2 (35-45) mmHg ABG pO2 (83-108) mmHg ABG HCO3 (21-25) mmol/L ABG Total CO2 (19-24) mmol/L ABG O2 Saturation (94-97) % ABG Base Excess mmol/L Wiliam Test FiO2 % Sodium 132 L (137-145) mmol/L Potassium 3.7 (3.5-5.1) mmol/L Chloride 93 L (98-107) mmol/L Carbon Dioxide 28 (22-30) mmol/L Anion Gap 11 mmol/L BUN 14 (7-17) mg/dL Creatinine 0.50 L (0.52-1.04) mg/dL Est GFR (CKD-EPI)AfAm >90 (>60 ml/min/1.73 sqM) Est GFR (CKD-EPI)NonAf >90 (>60 ml/min/1.73 sqM) Glucose 116 H (74-99) mg/dL Plasma Lactic Acid Chace (0.7-2.0) mmol/L Calcium 8.9 (8.4-10.2) mg/dL Magnesium 1.3 L (1.6-2.3) mg/dL Total Bilirubin 0.5 (0.2-1.3) mg/dL AST 32 (14-36) U/L ALT 26 (4-34) U/L Alkaline Phosphatase 73 (38-126) U/L Total Protein 6.4 (6.3-8.2) g/dL Albumin 3.3 L (3.5-5.0) g/dL 11/02/22 11/02/22 Range/Units 03:45 05:02 WBC (3.8-10.6) k/uL RBC (3.80-5.40) m/uL Hgb (11.4-16.0) gm/dL Hct (34.0-46.0) % MCV (80.0-100.0) fL MCH (25.0-35.0) pg MCHC (31.0-37.0) g/dL RDW (11.5-15.5) % Plt Count (150-450) k/uL MPV Neutrophils % % Lymphocytes % % Monocytes % % Eosinophils % % Basophils % % Neutrophils # (1.3-7.7) k/uL Lymphocytes # (1.0-4.8) k/uL Monocytes # (0-1.0) k/uL Eosinophils # (0-0.7) k/uL Basophils # (0-0.2) k/uL Anisocytosis PT (9.0-12.0) sec INR (<1.2) APTT (22.0-30.0) sec Sample Site right radial ABG pH 7.47 H (7.35-7.45) ABG pCO2 39 (35-45) mmHg ABG pO2 >400 H (83-108) mmHg ABG HCO3 28 H (21-25) mmol/L ABG Total CO2 30 H (19-24) mmol/L ABG O2 Saturation 99.9 H (94-97) % ABG Base Excess 4.7 mmol/L Wiliam Test Yes FiO2 100 % Sodium (137-145) mmol/L Potassium (3.5-5.1) mmol/L Chloride (98-107) mmol/L Carbon Dioxide (22-30) mmol/L Anion Gap mmol/L BUN (7-17) mg/dL Creatinine (0.52-1.04) mg/dL Est GFR (CKD-EPI)AfAm (>60 ml/min/1.73 sqM) Est GFR (CKD-EPI)NonAf (>60 ml/min/1.73 sqM) Glucose (74-99) mg/dL Plasma Lactic Acid Chace 2.0 (0.7-2.0) mmol/L Calcium (8.4-10.2) mg/dL Magnesium (1.6-2.3) mg/dL Total Bilirubin (0.2-1.3) mg/dL AST (14-36) U/L ALT (4-34) U/L Alkaline Phosphatase (38-126) U/L Total Protein (6.3-8.2) g/dL Albumin (3.5-5.0) g/dL Critical Care Time Critical Care Time: Yes Total Critical Care Time: 35 Disposition Clinical Impression: Aspiration pneumonia, Respiratory failure Disposition: ADMITTED IP TO THIS [facility] Condition: Serious Is patient prescribed a controlled substance at d/c from ED?: No Time of Disposition: 06:01
[2022-11-02 03:51] LABS: ALT 26 U/L (4-34); AST 32 U/L (14-36); African American GFR (CKD) >90 (>60 ml/min/1.73 sqM); Albumin 3.3 g/dL (3.5-5.0); Alkaline Phosphatase 73 U/L (38-126); Anion Gap 11 mmol/L; Blood Urea Nitrogen 14 mg/dL (7-17); Calcium 8.9 mg/dL (8.4-10.2); Carbon Dioxide 28 mmol/L (22-30); Chloride 93 mmol/L (98-107); Glucose 116 mg/dL (74-99); Magnesium 1.3 mg/dL (1.6-2.3); Non-African American GFR(CKD) >90 (>60 ml/min/1.73 sqM); Potassium 3.7 mmol/L (3.5-5.1); Sodium 132 mmol/L (137-145); Total Bilirubin 0.5 mg/dL (0.2-1.3); Total Protein 6.4 g/dL (6.3-8.2)
[2022-11-02 03:52] LABS: Partial Thromboplastin Time 21.1 sec (22.0-30.0); Prothrombin Time 10.7 sec (9.0-12.0)
[2022-11-02 04:26] LABS: Anisocytosis Slight; Basophils % (A) 0 %; Eosinophils % (A) 0 %; HCT 31.8 % (34.0-46.0); HGB 10.5 gm/dL (11.4-16.0); Lymphocytes # (A) 0.4 k/uL (1.0-4.8); Lymphocytes % (A) 3 %; MCV 84.8 fL (80.0-100.0); Mean Platelet Volume 8.6; Monocytes # (A) 0.2 k/uL (0-1.0); Monocytes % (A) 1 %; Neutrophils # (A) 14.6 k/uL (1.3-7.7); Neutrophils % (A) 96 %; Platelet Count 278 k/uL (150-450); RBC 3.76 m/uL (3.80-5.40); RDW 16.6 % (11.5-15.5); WBC 15.3 k/uL (3.8-10.6)
[2022-11-02] MEDS ORDERED: AMPICILLIN-SULBACTAM 3 GM in SODIUM CHLORIDE 0.9% 100 ML IVPB ONE (04:30)
[2022-11-02] MEDS ORDERED: MIDAZOLAM 1 MG/ML 5 ML VIAL IV STA ×2 (04:47→05:46)
[2022-11-02] MEDS ORDERED: ETOMIDATE 2 MG/ML 10 ML VIAL IVP STA (04:47)
[2022-11-02] MEDS ORDERED: SUCCINYLCHOLINE CHLORIDE 200 MG/10 ML VIAL IV STA (04:48)
[2022-11-02] MEDS ORDERED: PANTOPRAZOLE 40 MG/10 ML VIAL IVP STA (05:31)
[2022-11-02 05:37] LABS: ABG Base Excess 4.7 mmol/L; ABG HCO3 28 mmol/L (21-25); ABG Oxygen Saturation 99.9 % (94-97); ABG PCO2 39 mmHg (35-45); ABG PH 7.47 (7.35-7.45); ABG PO2 >400 mmHg (83-108); ABG TCO2 30 mmol/L (19-24); Allen Test Performed? Yes
--- NOTE | 2022-11-02 05:37 | XR ---
EXAM: XR Chest, 1 View CLINICAL HISTORY: ITS.REASON XR Reason: post intubation TECHNIQUE: Frontal view of the chest. COMPARISON: XR Chest dated 10/29/22 FINDINGS: Lungs: Increased interstitial markings, greater on the right and mildly increased. Query few patchy opacities in the right lung. Mild left basilar atelectasis. Pleural space: Unremarkable. No pneumothorax. Heart: Unremarkable. No cardiomegaly. Mediastinum: Unremarkable. Bones/joints: Right shoulder prosthesis. Tubes, lines and devices: New endotracheal tube with the tip 5 cm above the laila. Enteric tube tip in the proximal stomach. Proximal port near the GE junction. IMPRESSION: 1. Increased interstitial markings, greater on the right and mildly increased. Query few patchy opacities in the right lung. 2. New endotracheal tube with the tip 5 cm above the laila. 3. Enteric tube tip in the proximal stomach. Proximal port near the GE junction. Consider advancing 10 cm.
[2022-11-02] MEDS ORDERED: NALOXONE 0.4 MG/ML 1 ML VIAL IV PRN (05:44)
--- NOTE | 2022-11-02 06:04 | CT ---
EXAM: CT Chest Without Intravenous Contrast CLINICAL HISTORY: ITS.REASON CT Reason: Cough, vomiting TECHNIQUE: Axial computed tomography images of the chest without intravenous contrast. CTDI is 3.4 mGy and DLP is 261.75 mGy-cm. This CT exam was performed using one or more of the following dose reduction techniques: automated exposure control, adjustment of the mA and/or kV according to patient size, and/or use of iterative reconstruction technique. COMPARISON: No relevant prior studies available. FINDINGS: Lungs: Scattered patchy airspace disease bilaterally, greater on the right. Pleural space: Unremarkable. No pneumothorax. No significant effusion. Heart: Unremarkable. No cardiomegaly. No significant pericardial effusion. No significant coronary artery calcifications. Mediastinum: Visualized portion of the esophagus is fluid-filled. Moderate hiatal hernia which is also fluid-filled. Bones/joints: Nonacute appearing left rib fractures. Correlate. No dislocation. Soft tissues: Unremarkable. Vasculature: Unremarkable. No thoracic aortic aneurysm. Lymph nodes: Unremarkable. No enlarged lymph nodes. IMPRESSION: 1. Scattered patchy airspace disease bilaterally, greater on the right. Correlate for infectious or inflammatory process. Also consider aspiration. 2. Visualized portion of the esophagus is fluid-filled. Moderate hiatal hernia which is also fluid-filled. 3. Nonacute appearing left rib fractures. Correlate. EXAM: CT Abdomen and Pelvis Without Intravenous Contrast CLINICAL HISTORY: ITS.REASON CT Reason: Cough, vomiting TECHNIQUE: Axial computed tomography images of the abdomen and pelvis without intravenous contrast. CTDI is 3.4 mGy and DLP is 261.75 mGy-cm. This CT exam was performed using one or more of the following dose reduction techniques: automated exposure control, adjustment of the mA and/or kV according to patient size, and/or use of iterative reconstruction technique. COMPARISON: No relevant prior studies available. FINDINGS: Lung bases: Please see chest CT also today. ABDOMEN: Liver: Unremarkable. Gallbladder and bile ducts: Unremarkable. No calcified stones. No ductal dilation. Pancreas: Unremarkable. No ductal dilation. Spleen: Unremarkable. No splenomegaly. Adrenals: Unremarkable. No mass. Kidneys and ureters: Nonobstructing right renal calculus. Stomach and bowel: Fluid-filled moderately distended stomach. No abnormally dilated small bowel loops. Left pelvic hernia contains bowel loops without evidence of obstruction. No mucosal thickening. PELVIS: Appendix: Normal appendix. Bladder: Unremarkable. No stones. Reproductive: Unremarkable as visualized. ABDOMEN and PELVIS: Intraperitoneal space: Unremarkable. No free air. No significant fluid collection. Bones/joints: Degenerative changes of the spine. No acute fracture. No dislocation. Soft tissues: See above. Vasculature: Unremarkable. No abdominal aortic aneurysm. Lymph nodes: Unremarkable. No enlarged lymph nodes. IMPRESSION: 1. Nonobstructing right renal calculus. 2. Fluid-filled moderately distended stomach. 3. Left pelvic hernia contains bowel loops without evidence of obstruction.
[2022-11-02 06:55] LABS: Glucose,Whole Blood 179 mg/dL (70-110)
[2022-11-02 07:55] LABS: African American GFR (CKD) >90 (>60 ml/min/1.73 sqM); Anion Gap 8 mmol/L; Blood Urea Nitrogen 18 mg/dL (7-17); Calcium 7.8 mg/dL (8.4-10.2); Carbon Dioxide 26 mmol/L (22-30); Chloride 97 mmol/L (98-107); Glucose 145 mg/dL (74-99); Magnesium 1.3 mg/dL (1.6-2.3); Non-African American GFR(CKD) >90 (>60 ml/min/1.73 sqM); Potassium 3.7 mmol/L (3.5-5.1); Sodium 131 mmol/L (137-145)
[2022-11-02 08:06] LABS: Anisocytosis Slight; Basophils % (A) 0 %; Eosinophils % (A) 0 %; HCT 24.4 % (34.0-46.0); Lymphocytes # (A) 0.4 k/uL (1.0-4.8); Lymphocytes % (A) 2 %; MCH 29.2 pg (25.0-35.0); MCHC 34.7 g/dL (31.0-37.0); MCV 84.3 fL (80.0-100.0); Mean Platelet Volume 7.6; Monocytes # (A) 0.2 k/uL (0-1.0); Monocytes % (A) 1 %; Neutrophils # (A) 14.8 k/uL (1.3-7.7); Neutrophils % (A) 96 %; Platelet Count 247 k/uL (150-450); RBC 2.89 m/uL (3.80-5.40); RDW 16.4 % (11.5-15.5); WBC 15.4 k/uL (3.8-10.6)
--- NOTE | 2022-11-02 08:06 | P.CNPUL ---
History of Present Illness Consult date: 11/02/22 Requesting physician: Raul Charles Reason for consult: other (ICU management, aspiration pneumonia, acute hypoxemic respiratory failure) Chief complaint: Nausea and vomiting, respiratory distress History of present illness: I am seeing this patient in consultation today 11/02/2022 in the intensive care unit for acute hypoxemic respiratory failure related to aspiration. Patient is a 62-year-old white female with past medical history significant for alcohol abuse, wernickes encephalopathy, hypertension, hypothyroidism, bulimia, and resides at an [facility]. Patient was just recently admitted to the hospital for acute kidney injury and electrolyte abnormalities, and was discharged on October 31 back to her ECF, [facility]. The patient is currently intubated and unable to provide information. Patient was reportedly brought into the emergency room early this morning with intractable nausea and vomiting. Emesis was described as coffee ground. The patient did end up aspirating, and was in some severe respiratory distress. She was intubated by the ER physician with a #7 ET tube. There was reported upper airway edema, and she was a difficult intubation. She was started on high-dose steroids. Initial post-intubation chest x-ray shows increased interstitial markings with patchy right lung opacities. Endotracheal tube was 5 cm above the laila and could be advanced 1-2 cm. The orogastric tube was within the proximal stomach. Current ventilator settings are assist control, respiratory rate 16, tidal 450, FiO2 100%, PEEP of 5. ABGs on these setting show a pO2 greater than 400, pCO2 39, and pH of 7.47. FiO2 was decreased at 40%. Patient is sedated on 30 mg/kg/m of propofol. She still quite anxious and asynchronous with the mechanical ventilator. This will be titrated for synchrony and appropriate RASS. Peak pressures are 29 and plateau pressure are 15, there is some airway resistance, and presumptive brown gastric fluid within the ET tube and circuit. Blood pressure was reportedly hypotensive in the emergency room. She's received 1 L normal saline bolus in the emergency room, and has a second normal saline bolus infusing currently. BP is currently normotensive. Orogastric tube is currently to low intermittent suction. There is coffee ground gastric output. She was empirically started on Unasyn. Nonenhanced CT of the chest, abdomen, pelvis demonstrated patchy bilateral airspace opacities greater on the right, left pelvic hernia containing bowel l oops without evidence of obstruction, moderately distended fluid-filled stomach, and a nonobstructing right renal calculus. CBC on arrival shows a WBC count of 15.3, hemoglobin 10.5, hematocrit 31.8, platelets 278. BMP on arrival shows sodium 132, potassium 3.7, chloride 93, serum bicarb 28, BUN 14, creatinine 0.5, glucose 116. Lactic acid level was 2. A Reich catheter will be inserted. Patient will be monitored in the intensive care unit. Review of Systems ROS unobtainable: due to endotracheal tube Past Medical History Past Medical History: GERD/Reflux, Hypertension Additional Past Medical History / Comment(s): bulimia, electrolyte imbalance, wernickes encephalopathy, hypothyroidism, History of Any Multi-Drug Resistant Organisms: Unobtainable Past Surgical History: No Surgical Hx Reported Past Anesthesia/Blood Transfusion Reactions: Unable to Obtain Past Psychological History: Anxiety, Depression Past Alcohol Use History: Daily Past Drug Use History: None Reported Medications and Allergies Home Medications Medication Instructions Recorded Confirmed Type Calcium Carbonate [Tums] 1,000 mg PO Q8H PRN 10/29/22 11/02/22 History Folic Acid 0.8 mg PO DAILY 10/29/22 11/02/22 History Gabapentin [Neurontin] 200 mg PO BID 10/29/22 11/02/22 History LORazepam [Ativan] 0.5 mg PO BID 10/29/22 11/02/22 History Lactulose 20 gm PO DAILY 10/29/22 11/02/22 History Levothyroxine Sodium [Synthroid] 125 mcg PO DAILY 10/29/22 11/02/22 History Mag Hydrox/Aluminum Hyd/Simeth 20 ml PO Q8H PRN 10/29/22 11/02/22 History [Mylanta Maximum Strength Liq] Metoprolol Tartrate [Lopressor] 12.5 mg PO DAILY 10/29/22 11/02/22 History Mirtazapine 45 mg PO HS 10/29/22 11/02/22 History Ondansetron [Zofran] 4 mg PO Q8H PRN 10/29/22 11/02/22 History Pantoprazole [Protonix] 40 mg PO DAILY 10/29/22 11/02/22 History Potassium Chloride ER [K-Dur 20] 20 meq PO DAILY 10/29/22 11/02/22 History QUEtiapine FUMARATE [SEROquel XR] 300 mg PO HS 10/29/22 11/02/22 History Sodium Chloride Tab 1 gm PO DAILY 10/29/22 11/02/22 History Sucralfate [Carafate] 1 gm PO TID 10/29/22 11/02/22 History bisacodyL [Dulcolax] 10 mg PO DAILY PRN 10/29/22 11/02/22 History guaiFENesin [guaiFENesin Oral 200 mg PO Q4H PRN 10/29/22 11/02/22 History Solution] polyethylene glycoL 3350 [Miralax] 17 gm PO DAILY 10/29/22 11/02/22 History traZODone HCL 150 mg PO HS 10/29/22 11/02/22 History cefUROXime axetiL [Cefuroxime] 500 mg PO BID 3 Days #6 tab 10/31/22 11/02/22 Rx Acetaminophen Tab [Tylenol] 650 mg PO Q8H PRN 11/02/22 11/02/22 History Lactobacillus Acidophilus 1 cap PO DAILY 11/02/22 11/02/22 History [Acidophilus Probiotic] Allergies Allergy/AdvReac Type Severity Reaction Status Date / Time prochlorperazine Allergy Unknown Verified 11/02/22 07:49 Physical Exam Vitals: Vital Signs Temp Pulse Resp BP Pulse Ox FiO2 11/02/22 06:17 110 H 18 90/58 99 11/02/22 05:50 120 H 20 107/65 100 11/02/22 05:47 40 11/02/22 05:40 125 H 24 104/69 100 11/02/22 05:30 124 H 18 118/74 100 11/02/22 05:20 126 H 20 115/72 100 11/02/22 05:12 125 H 18 114/73 100 11/02/22 05:00 100 11/02/22 04:57 100 11/02/22 03:47 174 H 11/02/22 03:23 163 H 11/02/22 02:37 98.9 F 168 H 26 H 132/84 92 L Intake and Output 11/01/22 11/02/22 11/02/22 22:59 06:59 14:59 Intake Total 5.072 Balance 5.072 Intake: Intake, IV Titration 5.072 Amount propofoL 1,000 mg In 5.072 Empty Bag 1 bag @ 15 MCG/ KG/MIN 4.286 mls/hr IV . [id number] [facility] Rx#:[id number] Other: Weight 47.627 kg GENERAL EXAM: anxious, needs to be sedated, asynchronous with mechanical ventilator HEAD: Normocephalic and atraumatic EYES: Normal reaction of pupils, equal size. NOSE: Clear with pink turbinates. THROAT: No erythema or exudates. NECK: No masses, no JVD. CHEST: No chest wall deformity. LUNGS: Equal air entry with diffuse right-sided rhonchi. Intubated to the mechanical ventilator. CVS: S1 and S2 normal with no audible murmur, regular rhythm. No extra heart sounds ABDOMEN: Abdomen is soft, no hepatosplenomegaly, active bowel sounds, no guarding or rigidity. SPINE: No scoliosis or deformity SKIN: No rashes CENTRAL NERVOUS SYSTEM: Limited exam due to sedation and intubation, no focal deficits, moving all 4 extremities EXTREMITIES: There is no peripheral edema, clubbing, or cyanosis. Peripheral pulses are intact. Results - Laboratory Findings CBC and BMP: 11/02/22 07:22 11/02/22 07:22 ABG ABG pH 7.47 (7.35-7.45) H 11/02/22 05:02 ABG pCO2 39 mmHg (35-45) 11/02/22 05:02 ABG pO2 >400 mmHg (83-108) H 11/02/22 05:02 ABG O2 Saturation 99.9 % (94-97) H 11/02/22 05:02 PT/INR, D-dimer PT 10.7 sec (9.0-12.0) 11/02/22 03:09 INR 1.0 (<1.2) 11/02/22 03:09 Abnormal lab findings: Abnormal Labs 11/02/22 11/02/22 11/02/22 03:09 03:09 03:09 WBC 15.3 H RBC 3.76 L Hgb 10.5 L Hct 31.8 L RDW 16.6 H Neutrophils # 14.6 H Lymphocytes # 0.4 L APTT 21.1 L ABG pH ABG pO2 ABG HCO3 ABG Total CO2 ABG O2 Saturation Sodium 132 L Chloride 93 L Creatinine 0.50 L Glucose 116 H POC Glucose (mg/dL) Magnesium 1.3 L Albumin 3.3 L 11/02/22 11/02/22 05:02 06:53 WBC RBC Hgb Hct RDW Neutrophils # Lymphocytes # APTT ABG pH 7.47 H ABG pO2 >400 H ABG HCO3 28 H ABG Total CO2 30 H ABG O2 Saturation 99.9 H Sodium Chloride Creatinine Glucose POC Glucose (mg/dL) 179 H Magnesium Albumin - Diagnostic Findings Chest x-ray: image reviewed CT scan - chest: image reviewed Assessment and Plan Assessment: Acute hypoxemic respiratory failure, related to aspiration pneumonia. Currently intubated with mechanical ventilator. Increased interstitial markings and patchy right lung opacities consistent with aspiration pneumonitis. CT of the chest, abdomen and pelvis showed patchy bilateral airspace opacities greater on the right. It did not show any acute intra-abdominal obstructions. It did show a left pelvic hernia containing bowel loops without evidence of obstruction, moderately fluid-filled distended stomach, and a nonobstructive right renal calculus. Hypotension and suspected septic shock, responding to fluid resuscitation Leukocytosis, secondary to above Normocytic anemia, there is coffee-ground gastric fluid coming from OG tube Hypomagnesemia, being replaced per protocol History of bulimia History of alcoholism and Wernicke's encephalopathy Hypothyroidism Plan: Patient's medications, labs, chest x-ray reviewed Continue on the mechanical ventilator FiO2 is dropped to 40% Propofol for sedation Advance ET tube 1 cm Advance orogastric tube 5-10 cm Orogastric tube to low intermittent suction Collect gastric occult Protonix twice a day Continue empiric antibiotics for aspiration pneumonia Blood and sputum cultures are pending She is being currently fluid resuscitated with a second liter bolus of normal saline, may use vasopressors if needed Patient was reportedly a difficult intubation with significant upper airway edema; she was started on high-dose steroids Patient will be monitored in the intensive care unit I have personally seen and examined the patient, performed the documentation and the assessment and plan as written. Number of minutes spent on the visit:20 Plan: Time with Patient: Greater than 30
[2022-11-02 08:10] LABS: HGB 8.5 gm/dL (11.4-16.0)
[2022-11-02] MEDS: IPRATROPIUM-ALBUTEROL 3 ML NEB INHALATION SCH ×5 (08:22→23:22)
[2022-11-02] MEDS ORDERED: Magnesium Replacement Protocol 1 EACH MISC MISCELLANE PRN (08:26)
[2022-11-02] MEDS ORDERED: Potassium Replacement Protocol 1 EACH MISC MISCELLANE PRN (08:26)
[2022-11-02] MEDS: MAGNESIUM SULFATE-D5W PMX 1 GM in DEXTROSE/WATER 1 100ML.BAG IVPB SCH ×5 (08:29→12:09)
[2022-11-02] MEDS ORDERED: CISATRACURIUM 2 MG/ML 5 ML VIAL IV ONE ×2 (08:44→09:25)
[2022-11-02] MEDS ORDERED: HEPARIN SODIUM,PORCINE 5,000 UNIT/ML 1 ML VIAL SQ SCH (09:00)
[2022-11-02] MEDS ORDERED: LIDOCAINE 1% INJ 10MG/ML (20 ML MDV) ONE (09:28)
[2022-11-02] MEDS: CHLORHEXIDINE GLUCONATE 15 ML CUP MUCOUS MEM SCH ×2 (09:30→22:45)
[2022-11-02] MEDS: POTASSIUM CHLORIDE 10 MEQ in WATER FOR INJECTION 1 100ML.BAG IVPB SCH ×2 (09:31→11:16)
[2022-11-02] MEDS: SODIUM CHLORIDE 0.9% 1,000 ML IV SCH ×2 (09:32→22:48)
--- NOTE | 2022-11-02 09:46 | XR ---
EXAMINATION TYPE: XR chest 1V confirm line plcmt DATE OF EXAM: 11/02/2022 9:39 AM COMPARISON: Chest radiographs from 11/02/2022 TECHNIQUE: XR chest 1V confirm line plcmt Portable AP radiograph of the chest. CLINICAL INDICATION:Female, 62 years old with history of TL placement, ETT/OG advancement; FINDINGS: Lungs/Pleura: No pleural effusion or pneumothorax. Similar patchy airspace opacities within the right lung from prior examination. Pulmonary vascularity: Unremarkable. Heart/mediastinum: Cardiomediastinal silhouette is unremarkable. Musculoskeletal: No acute osseous pathology. Right shoulder prosthesis. Other findings: None Lines/Tubes: Endotracheal tube demonstrated with distal tip approximately 3.7 cm above the laila. Enteric tube pedraza s been advanced with distal tip below the diaphragm and not included on the [id number]. Interval placement of a right IJ central venous catheter distal tip in the mid SVC. IMPRESSION: 1. Right IJ central venous catheter placement with distal tip in the mid SVC. No pneumothorax. 2. Interval advancement of endotracheal and enteric tubes. 3. Similar right lung patchy airspace opacities concerning for pneumonia.
--- NOTE | 2022-11-02 10:14 | XR ---
EXAMINATION TYPE: XR chest 1V DATE OF EXAM: 11/02/2022 COMPARISON: 11/02/2022 INDICATION: Chest tube placed TECHNIQUE: Single frontal view of the chest is obtained. FINDINGS: The heart size is normal. The pulmonary vasculature is normal. Infiltrate is scattered through the right lung. There is a right sided pneumothorax estimated at 10 %. Right-sided chest tube is placed. Endotracheal tube tip is above laila. Nasogastric tube tip is within the abdomen. There is a right central venous catheter with tip in the superior vena cava region. IMPRESSION: 1. 10% right-sided pneumothorax. Chest tube has been placed. 2. Lines and catheters discussed above. 3. Patchy infiltrate through the right lung. Correlate for atelectasis or pneumonia.
[2022-11-02 10:18] LABS: Appearance,Urine Clear (Clear); Bilirubin,Urine Negative (Negative); Blood,Urine Negative (Negative); Color,Urine Yellow; Glucose,Urine (UA) Negative (Negative); Ketones,Urine Negative (Negative); Leukocyte Esterase,Urine Negative (Negative); Nitrite,Urine Negative (Negative); PH, Urine 6.5 (5.0-8.0); Protein,Urine Trace (Negative); Specific Gravity,Urine 1.027 (1.001-1.035); Urobilinogen,Urine <2.0 mg/dL (<2.0)
[2022-11-02] MEDS ORDERED: NOREPINEPHRINE 32 MG in SODIUM CHLORIDE 0.9% 218 ML IV SCH (11:00)
[2022-11-02 11:34] LABS: Glucose,Whole Blood 245 mg/dL (70-110)
[2022-11-02] MEDS: methylPREDNISolone SOD SUCCI 125 MG/2 ML VIAL IV SCH ×2 (11:54→16:42)
[2022-11-02] MEDS ORDERED: DEXTROSE 50% SYRINGE 50 ML IVP PRN ×2 (11:56)
[2022-11-02] MEDS: INSULIN ASPART (NovoLOG) 100 UNIT/ML VIAL SQ SCH ×3 (12:06→23:58)
[2022-11-02] MEDS: ENOXAPARIN 40 MG/0.4 ML SYRINGE SQ SCH (12:08)
--- NOTE | 2022-11-02 12:52 | P.HPIM ---
History of Present Illness H&P Date: 11/02/22 History of present illness; patient is a 62-year-old lady with past medical history significant for alcohol use disorder, Wernicke's encephalopathy, hypertension, history of bulimia nervosa, hypothyroidism who was recently discharged from our hospital after being treated for nausea vomiting and pneumonia, was discharged on oral antibiotics. Patient came back to the ER for worsening cough and vomiting. Patient was having productive cough. her fever or chills. No complaint of shortness of breath. No coughing of palpitations. Initial lab work done in the ER showed WBC 15.3, hemoglobin 10.5, platelet count 278, sodium 132, potassium 3.7 BUN 14 magnesium 1.3 Chest x-ray done in the ER showed increased interstitial markings, greater on the right and mildly increased, few patchy opacities in the right lung Patient continued to have increasing nausea and vomiting in the ER, there was concern for patient to protect her airway so patient was intubated in the ER and was transferred to ICU REVIEW OF SYSTEMS: Cannot be obtained as patient currently intubated PHYSICAL EXAMINATION: GENERAL: The patient is intubated and sedated HEENT: Pupils are round and equally reacting to light. EOMI. No scleral icterus. No conjunctival pallor. Normocephalic, atraumatic. No pharyngeal erythema. No thyromegaly. CARDIOVASCULAR: S1 and S2 present. No murmurs, rubs, or gallops. PULMONARY: Coarse breath some bilaterally, bilateral expiratory rhonchi audible ABDOMEN: Soft, nontender, nondistended, normoactive bowel sounds. No palpable organomegaly. MUSCULOSKELETAL: No joint swelling or deformity. EXTREMITIES: No cyanosis, clubbing, or pedal edema. NEUROLOGICAL: Cannot be obtained as Patient is intubated and sedated SKIN: No rashes. Assessment and plan Acute hypoxemic respiratory failure Aspiration pneumonia Hypotension and suspected septic shock Leukocytosis Anemia Hypomagnesemia History of bulimia History of alcoholism and Wernicke's encephalopathy Hypothyroidism Monitor vital signs Monitor CBC Monitor CMP Continue vent management per ICU Follow-up on blood cultures Follow-up on sputum cultures Continue IV Unasyn Aggressive broncho- pulmonary hygiene Continue IV Solu-Medrol Critical care consulted ID consulted Labs and medication were reviewed.. Continue same treatment. Continue with symptomatic treatment. Resume home medication. Monitor labs and vitals. DVT and GI prophylaxis. Further recommendations as per clinical course of the patient Dictation was produced using [employer] dictation software. please excuse any grammatical, word or spelling errors. Past Medical History Past Medical History: GERD/Reflux, Hypertension Additional Past Medical History / Comment(s): bulimia, electrolyte imbalance, wernickes encephalopathy, hypothyroidism, History of Any Multi-Drug Resistant Organisms: Unobtainable Past Surgical History: No Surgical Hx Reported Past Anesthesia/Blood Transfusion Reactions: Unable to Obtain Past Psychological History: Anxiety, Depression Past Alcohol Use History: Daily Past Drug Use History: None Reported Medications and Allergies Home Medications Medication Instructions Recorded Confirmed Type Calcium Carbonate [Tums] 1,000 mg PO Q8H PRN 10/29/22 11/02/22 History Folic Acid 0.8 mg PO DAILY 10/29/22 11/02/22 History Gabapentin [Neurontin] 200 mg PO BID 10/29/22 11/02/22 History LORazepam [Ativan] 0.5 mg PO BID 10/29/22 11/02/22 History Lactulose 20 gm PO DAILY 10/29/22 11/02/22 History Levothyroxine Sodium [Synthroid] 125 mcg PO DAILY 10/29/22 11/02/22 History Mag Hydrox/Aluminum Hyd/Simeth 20 ml PO Q8H PRN 10/29/22 11/02/22 History [Mylanta Maximum Strength Liq] Metoprolol Tartrate [Lopressor] 12.5 mg PO DAILY 10/29/22 11/02/22 History Mirtazapine 45 mg PO HS 10/29/22 11/02/22 History Ondansetron [Zofran] 4 mg PO Q8H PRN 10/29/22 11/02/22 History Pantoprazole [Protonix] 40 mg PO DAILY 10/29/22 11/02/22 History Potassium Chloride ER [K-Dur 20] 20 meq PO DAILY 10/29/22 11/02/22 History QUEtiapine FUMARATE [SEROquel XR] 300 mg PO HS 10/29/22 11/02/22 History Sodium Chloride Tab 1 gm PO DAILY 10/29/22 11/02/22 History Sucralfate [Carafate] 1 gm PO TID 10/29/22 11/02/22 History bisacodyL [Dulcolax] 10 mg PO DAILY PRN 10/29/22 11/02/22 History guaiFENesin [guaiFENesin Oral 200 mg PO Q4H PRN 10/29/22 11/02/22 History Solution] polyethylene glycoL 3350 [Miralax] 17 gm PO DAILY 10/29/22 11/02/22 History traZODone HCL 150 mg PO HS 10/29/22 11/02/22 History cefUROXime axetiL [Cefuroxime] 500 mg PO BID 3 Days #6 tab 10/31/22 11/02/22 Rx Acetaminophen Tab [Tylenol] 650 mg PO Q8H PRN 11/02/22 11/02/22 History Lactobacillus Acidophilus 1 cap PO DAILY 11/02/22 11/02/22 History [Acidophilus Probiotic] Allergies Allergy/AdvReac Type Severity Reaction Status Date / Time prochlorperazine Allergy Unknown Verified 11/02/22 07:49 Physical Exam Vitals: Vital Signs Temp Pulse Resp BP Pulse Ox FiO2 11/02/22 08:30 85 17 11/02/22 08:22 88 17 11/02/22 08:04 40 11/02/22 08:00 40 11/02/22 06:17 110 H 18 90/58 99 11/02/22 05:50 120 H 20 107/65 100 11/02/22 05:47 40 11/02/22 05:40 125 H 24 104/69 100 11/02/22 05:30 124 H 18 118/74 100 11/02/22 05:20 126 H 20 115/72 100 11/02/22 05:12 125 H 18 114/73 100 11/02/22 05:00 100 11/02/22 03:47 174 H 11/02/22 03:23 163 H 11/02/22 02:37 98.9 F 168 H 26 H 132/84 92 L Intake and Output 11/01/22 11/02/22 11/02/22 22:59 06:59 14:59 Intake Total 5.072 17.859 Balance 5.072 17.859 Intake: Intake, IV Titration 5.072 17.859 Amount propofoL 1,000 mg In 5.072 17.859 Empty Bag 1 bag @ 15 MCG/ KG/MIN 4.286 mls/hr IV . [id number] [facility] Rx#:[id number] Other: Weight 47.627 kg Results CBC & Chem 7: 11/02/22 07:22 11/02/22 07:22 Labs: Abnormal Lab Results - Last 24 Hours (Table) 11/02/22 11/02/22 11/02/22 Range/Units 03:09 03:09 03:09 WBC 15.3 H (3.8-10.6) k/uL RBC 3.76 L (3.80-5.40) m/uL Hgb 10.5 L (11.4-16.0) gm/dL Hct 31.8 L (34.0-46.0) % RDW 16.6 H (11.5-15.5) % Neutrophils # 14.6 H (1.3-7.7) k/uL Lymphocytes # 0.4 L (1.0-4.8) k/uL APTT 21.1 L (22.0-30.0) sec ABG pH (7.35-7.45) ABG pO2 (83-108) mmHg ABG HCO3 (21-25) mmol/L ABG Total CO2 (19-24) mmol/L ABG O2 Saturation (94-97) % Sodium 132 L (137-145) mmol/L Chloride 93 L (98-107) mmol/L BUN (7-17) mg/dL Creatinine 0.50 L (0.52-1.04) mg/dL Glucose 116 H (74-99) mg/dL POC Glucose (mg/dL) (70-110) mg/dL Calcium (8.4-10.2) mg/dL Magnesium 1.3 L (1.6-2.3) mg/dL Albumin 3.3 L (3.5-5.0) g/dL 11/02/22 11/02/22 11/02/22 Range/Units 05:02 06:53 07:22 WBC 15.4 H (3.8-10.6) k/uL RBC 2.89 L (3.80-5.40) m/uL Hgb 8.5 L D (11.4-16.0) gm/dL Hct 24.4 L (34.0-46.0) % RDW 16.4 H (11.5-15.5) % Neutrophils # 14.8 H (1.3-7.7) k/uL Lymphocytes # 0.4 L (1.0-4.8) k/uL APTT (22.0-30.0) sec ABG pH 7.47 H (7.35-7.45) ABG pO2 >400 H (83-108) mmHg ABG HCO3 28 H (21-25) mmol/L ABG Total CO2 30 H (19-24) mmol/L ABG O2 Saturation 99.9 H (94-97) % Sodium (137-145) mmol/L Chloride (98-107) mmol/L BUN (7-17) mg/dL Creatinine (0.52-1.04) mg/dL Glucose (74-99) mg/dL POC Glucose (mg/dL) 179 H (70-110) mg/dL Calcium (8.4-10.2) mg/dL Magnesium (1.6-2.3) mg/dL Albumin (3.5-5.0) g/dL 11/02/22 Range/Units 07:22 WBC (3.8-10.6) k/uL RBC (3.80-5.40) m/uL Hgb (11.4-16.0) gm/dL Hct (34.0-46.0) % RDW (11.5-15.5) % Neutrophils # (1.3-7.7) k/uL Lymphocytes # (1.0-4.8) k/uL APTT (22.0-30.0) sec ABG pH (7.35-7.45) ABG pO2 (83-108) mmHg ABG HCO3 (21-25) mmol/L ABG Total CO2 (19-24) mmol/L ABG O2 Saturation (94-97) % Sodium 131 L (137-145) mmol/L Chloride 97 L (98-107) mmol/L BUN 18 H (7-17) mg/dL Creatinine 0.45 L (0.52-1.04) mg/dL Glucose 145 H (74-99) mg/dL POC Glucose (mg/dL) (70-110) mg/dL Calcium 7.8 L (8.4-10.2) mg/dL Magnesium 1.3 L (1.6-2.3) mg/dL Albumin (3.5-5.0) g/dL
--- NOTE | 2022-11-02 13:40 | OP ---
OPERATIVE REPORT DATE OF SERVICE : PROCEDURE PERFORMED: Placement of a right-sided chest tube/right-sided tube thoracostomy. PREOPERATIVE DIAGNOSIS: Iatrogenic right-sided pneumothorax. POSTOPERATIVE DIAGNOSIS: Iatrogenic right-sided pneumothorax. ANESTHESIA USED: 5 mL of 1% lidocaine. DESCRIPTION OF PROCEDURE: The patient was placed in the supine position. The area of the right chest was prepared in a sterile fashion, and drapes were applied. The area of the sixth intercostal space and anterior axillary line was locally anesthetized. Then, a small incision, 1.0 cm was made at that site and dissected with my finger and with forceps until the pleural space was entered. Then, a size 24 Stanberry chest tube was placed pointing apically and posteriorly. The tube was connected to Pleur-evac. There was a minimal air leak noted. Line was secured with 0 Ethibond sutures, and dressing was applied. Chest x-ray showed adequate placement of the right-sided chest tube, and small tiny right apical pneumothorax was noted again. Again, procedure was well tolerated. No complications. MMODL / IJN: [id number] /
--- NOTE | 2022-11-02 14:05 | OP ---
OPERATIVE REPORT DATE OF SERVICE : PREOPERATIVE DIAGNOSIS: Placement of a right internal jugular triple-lumen catheter. PREOPERATIVE DIAGNOSES: 1. Acute hypoxic respiratory failure. 2. Hypotension. 3. Pneumonia. 4. Sepsis. POSTOPERATIVE DIAGNOSES: 1. Acute hypoxic respiratory failure. 2. Hypotension. 3. Pneumonia. 4. Sepsis. This was placed on emergency basis. DESCRIPTION OF PROCEDURE: The patient was placed in the supine position. The area of the right subclavian region was prepared in a sterile fashion. The area below the right clavicle was locally anesthetized. Using the anterior approach, multiple attempts were made to cannulate the right subclavian vein. However, one of the attempts ended up cannulating the right subclavian artery. Then, no more attempts were made. Moved to the right IJ area. The area was prepared in a sterile fashion, and using the central approach, the right internal jugular vein was easily cannulated, and a guidewire was placed. Area around the guidewire was dilated. A triple-lumen catheter was inserted over the guidewire, and the guidewire was removed. Good blood flow was noted in the 3 different ports of the triple-lumen catheter. However, chest x-ray postoperatively showed a 10% right- sided pneumothorax, most likely a complication from attempting to cannulate the right subclavian vein. Considering the patient is on mechanical ventilation, proceeded to placement of the right-sided chest tube. Please refer to operative report. MMODL / IJN: [id number] /
--- NOTE | 2022-11-02 14:10 | OP ---
OPERATIVE REPORT DATE OF SERVICE : PROCEDURE PERFORMED: Placement of a right radial arterial line. PREOPERATIVE DIAGNOSIS: 1. Sepsis. 2. Aspiration pneumonia. POSTOPERATIVE DIAGNOSES: 1. Sepsis. 2. Aspiration pneumonia. ANESTHESIA USED: None deployed. DESCRIPTION OF PROCEDURE: The right wrist was prepared in a sterile fashion. The drapes were applied. The right radial artery was palpated, easily cannulated, and a guidewire was placed. A Cook catheter was inserted over the guidewire, and the guidewire was removed. Good blood flow. Good waveform. No complications. Line was secured using 3-0 silk sutures. MMODL / IJN: [id number] /
[2022-11-02] MEDS ORDERED: AMPICILLIN-SULBACTAM 3 GM in SODIUM CHLORIDE 0.9% 100 ML IVPB SCH (16:00)
[2022-11-02 17:43] LABS: Glucose,Whole Blood 202 mg/dL (70-110)
[2022-11-02] MEDS: NOREPINEPHRINE 4 MG in SODIUM CHLORIDE 0.9% 250 ML IV SCH (20:00)
--- NOTE | 2022-11-02 21:36 | P.CONS ---
History of Present Illness - Reason for Consult Consult date: 11/02/22 - History of Present Illness Patient is a 62-year-old female with a past medical history negative for hypertension reflux bulimia hypothyroidism recently admitted to hospital for acute kidney injury and electrolyte imbalance and was discharged on 10/31/2022 patient has been brought back to the hospital within 24 hours with intractable nausea vomiting emesis was described as coffee-ground and did have significant amount of secretions in the mouth and concerning for aspiration patient was in acute respiratory distress on presentation to the hospital elevated intubated on arrival to the hospital the patient was afebrile and no fever have been still recorded subsequently patient was tachycardic though and hypertensive requiring pressor support currently on 40% FiO2 patient did have a white count of 15.3 with a left shift kidney function has been normal limits of the normal urine has been negative patient did have a chest x-ray increased interstitial marking greater on the right and mildly increased opacity in the right lung patient did have a CT of the chest abdominal pelvis scheduled patchy airspace density bilaterally greater on the right patient denies portion of the esophagus is fluid-filled moderately distended stomach no obstruction patient was started on Unasyn infectious disease was consulted for further management of antibiotic therapy, patient currently intubated on the vent most information has been extracted from to the chart talking nursing staff Past Medical History Past Medical History: GERD/Reflux, Hypertension Additional Past Medical History / Comment(s): bulimia, electrolyte imbalance, wernickes encephalopathy, hypothyroidism, History of Any Multi-Drug Resistant Organisms: Unobtainable Past Surgical History: No Surgical Hx Reported Past Anesthesia/Blood Transfusion Reactions: Unable to Obtain Past Psychological History: Anxiety, Depression Past Alcohol Use History: Daily Past Drug Use History: None Reported Medications and Allergies Home Medications Medication Instructions Recorded Confirmed Type Calcium Carbonate [Tums] 1,000 mg PO Q8H PRN 10/29/22 11/02/22 History Folic Acid 0.8 mg PO DAILY 10/29/22 11/02/22 History Gabapentin [Neurontin] 200 mg PO BID 10/29/22 11/02/22 History LORazepam [Ativan] 0.5 mg PO BID 10/29/22 11/02/22 History Lactulose 20 gm PO DAILY 10/29/22 11/02/22 History Levothyroxine Sodium [Synthroid] 125 mcg PO DAILY 10/29/22 11/02/22 History Mag Hydrox/Aluminum Hyd/Simeth 20 ml PO Q8H PRN 10/29/22 11/02/22 History [Mylanta Maximum Strength Liq] Metoprolol Tartrate [Lopressor] 12.5 mg PO DAILY 10/29/22 11/02/22 History Mirtazapine 45 mg PO HS 10/29/22 11/02/22 History Ondansetron [Zofran] 4 mg PO Q8H PRN 10/29/22 11/02/22 History Pantoprazole [Protonix] 40 mg PO DAILY 10/29/22 11/02/22 History Potassium Chloride ER [K-Dur 20] 20 meq PO DAILY 10/29/22 11/02/22 History QUEtiapine FUMARATE [SEROquel XR] 300 mg PO HS 10/29/22 11/02/22 History Sodium Chloride Tab 1 gm PO DAILY 10/29/22 11/02/22 History Sucralfate [Carafate] 1 gm PO TID 10/29/22 11/02/22 History bisacodyL [Dulcolax] 10 mg PO DAILY PRN 10/29/22 11/02/22 History guaiFENesin [guaiFENesin Oral 200 mg PO Q4H PRN 10/29/22 11/02/22 History Solution] polyethylene glycoL 3350 [Miralax] 17 gm PO DAILY 10/29/22 11/02/22 History traZODone HCL 150 mg PO HS 10/29/22 11/02/22 History cefUROXime axetiL [Cefuroxime] 500 mg PO BID 3 Days #6 tab 10/31/22 11/02/22 Rx Acetaminophen Tab [Tylenol] 650 mg PO Q8H PRN 11/02/22 11/02/22 History Lactobacillus Acidophilus 1 cap PO DAILY 11/02/22 11/02/22 History [Acidophilus Probiotic] Allergies Allergy/AdvReac Type Severity Reaction Status Date / Time prochlorperazine Allergy Unknown Verified 11/02/22 07:49 Physical Exam Vitals: Vital Signs Temp Pulse Resp BP Pulse Ox FiO2 11/02/22 08:30 85 17 11/02/22 08:22 88 17 11/02/22 08:04 40 11/02/22 08:00 40 11/02/22 06:17 110 H 18 90/58 99 11/02/22 05:50 120 H 20 107/65 100 11/02/22 05:47 40 11/02/22 05:40 125 H 24 104/69 100 11/02/22 05:30 124 H 18 118/74 100 11/02/22 05:20 126 H 20 115/72 100 11/02/22 05:12 125 H 18 114/73 100 11/02/22 05:00 100 11/02/22 03:47 174 H 11/02/22 03:23 163 H 11/02/22 02:37 98.9 F 168 H 26 H 132/84 92 L Intake and Output 11/01/22 11/02/22 11/02/22 22:59 06:59 14:59 Intake Total 5.072 51.198 Balance 5.072 51.198 Intake: Intake, IV Titration 5.072 51.198 Amount propofoL 1,000 mg In 5.072 51.198 Empty Bag 1 bag @ 15 MCG/ KG/MIN 4.286 mls/hr IV . [id number] [facility] Rx#:[id number] Other: Weight 47.627 kg Results CBC & Chem 7: 11/02/22 07:22 11/02/22 07:22 Labs: Abnormal Lab Results - Last 24 Hours (Table) 11/02/22 11/02/22 11/02/22 Range/Units 03:09 03:09 03:09 WBC 15.3 H (3.8-10.6) k/uL RBC 3.76 L (3.80-5.40) m/uL Hgb 10.5 L (11.4-16.0) gm/dL Hct 31.8 L (34.0-46.0) % RDW 16.6 H (11.5-15.5) % Neutrophils # 14.6 H (1.3-7.7) k/uL Lymphocytes # 0.4 L (1.0-4.8) k/uL APTT 21.1 L (22.0-30.0) sec ABG pH (7.35-7.45) ABG pO2 (83-108) mmHg ABG HCO3 (21-25) mmol/L ABG Total CO2 (19-24) mmol/L ABG O2 Saturation (94-97) % Sodium 132 L (137-145) mmol/L Chloride 93 L (98-107) mmol/L BUN (7-17) mg/dL Creatinine 0.50 L (0.52-1.04) mg/dL Glucose 116 H (74-99) mg/dL POC Glucose (mg/dL) (70-110) mg/dL Calcium (8.4-10.2) mg/dL Magnesium 1.3 L (1.6-2.3) mg/dL Albumin 3.3 L (3.5-5.0) g/dL Urine Protein (Negative) 11/02/22 11/02/22 11/02/22 Range/Units 05:02 06:53 07:22 WBC 15.4 H (3.8-10.6) k/uL RBC 2.89 L (3.80-5.40) m/uL Hgb 8.5 L D (11.4-16.0) gm/dL Hct 24.4 L (34.0-46.0) % RDW 16.4 H (11.5-15.5) % Neutrophils # 14.8 H (1.3-7.7) k/uL Lymphocytes # 0.4 L (1.0-4.8) k/uL APTT (22.0-30.0) sec ABG pH 7.47 H (7.35-7.45) ABG pO2 >400 H (83-108) mmHg ABG HCO3 28 H (21-25) mmol/L ABG Total CO2 30 H (19-24) mmol/L ABG O2 Saturation 99.9 H (94-97) % Sodium (137-145) mmol/L Chloride (98-107) mmol/L BUN (7-17) mg/dL Creatinine (0.52-1.04) mg/dL Glucose (74-99) mg/dL POC Glucose (mg/dL) 179 H (70-110) mg/dL Calcium (8.4-10.2) mg/dL Magnesium (1.6-2.3) mg/dL Albumin (3.5-5.0) g/dL Urine Protein (Negative) 11/02/22 11/02/22 Range/Units 07:22 09:53 WBC (3.8-10.6) k/uL RBC (3.80-5.40) m/uL Hgb (11.4-16.0) gm/dL Hct (34.0-46.0) % RDW (11.5-15.5) % Neutrophils # (1.3-7.7) k/uL Lymphocytes # (1.0-4.8) k/uL APTT (22.0-30.0) sec ABG pH (7.35-7.45) ABG pO2 (83-108) mmHg ABG HCO3 (21-25) mmol/L ABG Total CO2 (19-24) mmol/L ABG O2 Saturation (94-97) % Sodium 131 L (137-145) mmol/L Chloride 97 L (98-107) mmol/L BUN 18 H (7-17) mg/dL Creatinine 0.45 L (0.52-1.04) mg/dL Glucose 145 H (74-99) mg/dL POC Glucose (mg/dL) (70-110) mg/dL Calcium 7.8 L (8.4-10.2) mg/dL Magnesium 1.3 L (1.6-2.3) mg/dL Albumin (3.5-5.0) g/dL Urine Protein Trace H (Negative) Assessment and Plan Plan: 1patient was in the hospital with sepsis in this patient who with tachycardia hypotension requiring pressor support patient white count source likely aspiration pneumonia in this patient recent discharge from hospital will need to cover for the resistant gram-negative to be the likely pathogen 2-blood and sputum cultures obtained results will be followed 3-check inflammatory markers 4-discontinue Unasyn and start patient on Zosyn while waiting for the culture to finalize We will follow on clinical condition and cultures to further adjust medication if needed Thank you for this consultation we will follow the patient along with you Dictation was produced using [employer] dictation software. please excuse any grammatical, word or spelling errors. Time with Patient: Greater than 30
[2022-11-02] MEDS: PANTOPRAZOLE 40 MG/10 ML VIAL IVP SCH (22:45)
[2022-11-02] MEDS: PIPERACILLIN-TAZOBACTAM 3.375 GM in SODIUM CHLORIDE 0.9% 100 ML IVPB SCH (22:48)
[2022-11-02 23:51] LABS: Glucose,Whole Blood 147 mg/dL (70-110)
[2022-11-03] MEDS: methylPREDNISolone SOD SUCCI 125 MG/2 ML VIAL IV SCH ×5 (00:03→23:32)
[2022-11-03] MEDS: IPRATROPIUM-ALBUTEROL 3 ML NEB INHALATION SCH ×6 (03:00→23:06)
[2022-11-03 04:22] LABS: African American GFR (CKD) >90 (>60 ml/min/1.73 sqM); Anion Gap 5 mmol/L; Blood Urea Nitrogen 16 mg/dL (7-17); Calcium 7.2 mg/dL (8.4-10.2); Carbon Dioxide 23 mmol/L (22-30); Chloride 106 mmol/L (98-107); Glucose 176 mg/dL (74-99); Magnesium 2.4 mg/dL (1.6-2.3); Non-African American GFR(CKD) >90 (>60 ml/min/1.73 sqM); Potassium 3.5 mmol/L (3.5-5.1); Sodium 134 mmol/L (137-145)
[2022-11-03 04:23] LABS: Anisocytosis Slight; Basophils % (A) 0 %; Eosinophils % (A) 0 %; HCT 22.6 % (34.0-46.0); HGB 7.5 gm/dL (11.4-16.0); Lymphocytes # (A) 0.5 k/uL (1.0-4.8); Lymphocytes % (A) 4 %; MCH 28.3 pg (25.0-35.0); MCHC 33.2 g/dL (31.0-37.0); MCV 85.4 fL (80.0-100.0); Mean Platelet Volume 9.1; Monocytes # (A) 0.1 k/uL (0-1.0); Monocytes % (A) 1 %; Neutrophils # (A) 10.8 k/uL (1.3-7.7); Neutrophils % (A) 94 %; Platelet Count 219 k/uL (150-450); RBC 2.65 m/uL (3.80-5.40); RDW 17.1 % (11.5-15.5); WBC 11.5 k/uL (3.8-10.6)
[2022-11-03 05:33] LABS: ABG Base Excess -0.1 mmol/L; ABG HCO3 24 mmol/L (21-25); ABG Oxygen Saturation 99.1 % (94-97); ABG PCO2 35 mmHg (35-45); ABG PH 7.45 (7.35-7.45); ABG PO2 138 mmHg (83-108); ABG TCO2 25 mmol/L (19-24)
[2022-11-03 05:36] LABS: Allen Test Performed? no
[2022-11-03 05:54] LABS: Glucose,Whole Blood 190 mg/dL (70-110)
[2022-11-03] MEDS: INSULIN ASPART (NovoLOG) 100 UNIT/ML VIAL SQ SCH ×4 (06:21→23:32)
[2022-11-03] MEDS: POTASSIUM CHLORIDE 20 MEQ in WATER FOR INJECTION 1 100ML.BAG IVPB SCH ×2 (06:22→08:23)
[2022-11-03] MEDS: PIPERACILLIN-TAZOBACTAM 3.375 GM in SODIUM CHLORIDE 0.9% 100 ML IVPB SCH ×3 (06:23→20:51)
[2022-11-03] MEDS: SODIUM CHLORIDE 0.9% 1,000 ML IV SCH ×3 (06:31→19:45)
--- NOTE | 2022-11-03 07:40 | XR ---
EXAMINATION TYPE: XR chest 1V DATE OF EXAM: 11/03/2022 HISTORY: Shortness of breath. COMPARISON: 11/02/2022 TECHNIQUE: Single view of the chest is submitted. FINDINGS: Right-sided chest tube is in place with right-sided pneumothorax again noted. Apical pleural distance of 1.5 cm versus 2 cm previously. Scattered patchy infiltrates noted throughout the right lung and l eft perihilar and left medial basilar regions. Endotracheal tube demonstrates its distal tip near the right mainstem bronchus and should be pulled b ack 2 cm. NG tube is seen coursing into the stomach. The heart is stable. Hilar and mediastinal structures are within normal limits. Degenerative changes are seen of the dorsal spine. IMPRESSION: 1. Slightly improved right apical pneumothorax. 2. Scattered patchy infiltrates right greater than left. Correlate for underlying pneumonia. 3. Endotracheal tube should be pulled back 2 cm.
[2022-11-03] MEDS: PANTOPRAZOLE 40 MG/10 ML VIAL IVP SCH ×2 (09:49→20:13)
[2022-11-03] MEDS: CHLORHEXIDINE GLUCONATE 15 ML CUP MUCOUS MEM SCH ×2 (09:49→20:13)
[2022-11-03] MEDS: ENOXAPARIN 40 MG/0.4 ML SYRINGE SQ SCH (09:49)
--- NOTE | 2022-11-03 10:27 | P.PN ---
Subjective Progress Note Date: 11/03/22 Principal diagnosis: Acute hypoxic respiratory failure secondary to aspiration pneumonia with sepsis and septic shock. I am seeing this patient in consultation today 11/02/2022 in the intensive care unit for acute hypoxemic respiratory failure related to aspiration. Patient is a 62-year-old white female with past medical history significant for alcohol abuse, wernickes encephalopathy, hypertension, hypothyroidism, bulimia, and resides at an [facility]. Patient was just recently admitted to the hospital for acute kidney injury and electrolyte abnormalities, and was discharged on October 31 back to her ECF, [facility]. The patient is currently intubated and unable to provide information. Patient was reportedly brought into the emergency room early this morning with intractable nausea and vomiting. Emesis was described as coffee ground. The patient did end up aspirating, and was in some severe respiratory distress. She was intubated by the ER physician with a #7 ET tube. There was reported upper airway edema, and she was a difficult intubation. She was started on high-dose steroids. Initial post-intubation chest x-ray shows increased interstitial markings with patchy right lung opacities. Endotracheal tube was 5 cm above the laila and could be advanced 1-2 cm. The orogastric tube was within the proximal stomach. Current ventilator settings are assist control, respiratory rate 16, tidal 450, FiO2 100%, PEEP of 5. ABGs on these setting show a pO2 greater than 400, pCO2 39, and pH of 7.47. FiO2 was decreased at 40%. Patient is sedated on 30 mg/kg/m of propofol. She still quite anxious and asynchronous with the mechanical ventilator. This will be t itrated for synchrony and appropriate RASS. Peak pressures are 29 and plateau pressure are 15, there is some airway resistance, and presumptive brown gastric fluid within the ET tube and circuit. Blood pressure was reportedly hypotensive in the emergency room. She's received 1 L normal saline bolus in the emergency room, and has a second normal saline bolus infusing currently. BP is currently normotensive. Orogastric tube is currently to low intermittent suction. There is coffee ground gastric output. She was empirically started on Unasyn. Nonenhanced CT of the chest, abdomen, pelvis demonstrated patchy bilateral airspace opacities greater on the right, left pelvic hernia containing bowel loops without evidence of obstruction, moderately distended fluid-filled stomach, and a nonobstructing right renal calculus. CBC on arrival shows a WBC count of 15.3, hemoglobin 10.5, hematocrit 31.8, platelets 278. BMP on arrival shows sodium 132, potassium 3.7, chloride 93, serum bicarb 28, BUN 14, creatinine 0.5, glucose 116. Lactic acid level was 2. A Reich catheter will be inserted. Patient will be monitored in the intensive care unit. Reevaluated today 11/03/2022, patient remains currently intubated. She is on assist control rate of 16 volume 400 FiO2 35% and PEEP of 5 she was earlier on rate of 18 and FiO2 40% and these were changed. ABG showed a pO2 of 138, P CO2 of 35 pH of 7.45 and then setting changes were made as above. Patient dropped her hemoglobin admitted down to 7.5, she did have positive guaiac/gastric secretions hence Protonix was increased to twice a day and no need to transfuse any blood at this point. Platelets are 219. Electrolytes are normal potassium is 3.5 being corrected as per protocol. Renal profile is normal. Chest x-ray showed small tiny right apical pneumothorax, scattered patchy infiltrates right more so than left, with aspiration pneumonia endotracheal tube was noted to be admitted to distal and we recommended following that she will at least 2cm proximally patient remains on broad-spectrum antibiotics, and/Zosyn. Patient remains on GI and DVT prophylaxis, she is requiring a small dose of norepinephrine today at 0.04 mcg/kg/m she is on propofol at 60 mcg/kg/m IV fluids 100 mL/h, and enteral feeding will be started today. Objective - Vital Signs Vital signs: Vital Signs Temp 97.3 F L 11/03/22 09:00 Pulse 72 11/03/22 09:00 Resp 24 11/03/22 09:00 BP 118/69 11/03/22 09:00 Pulse Ox 98 11/03/22 09:00 FiO2 35 11/03/22 09:00 Intake & Output 11/02/22 11/03/22 11/03/22 18:59 06:59 18:59 Intake Total 3784.918 1531.572 506.868 Output Total 985 595 130 Balance 2799.918 936.572 376.868 Weight 47.627 kg 63 kg Intake: IV 3700 1225 450 Ampicillin-Sulbactam 3 gm 100 In Sodium Chloride 0.9% 100 ml @ 200 mls/hr IVPB Q8HR [facility] Rx#:[id number] Magnesium Sulfate-D5w Pmx 400 1 gm In Dextrose/Water 1 100ml.bag @ 100 mls/hr IVPB Q1H [facility] Rx#: [id number] Piperacillin-Tazobactam 3 125 25 .375 gm In Sodium Chloride 0.9% 100 ml @ 25 mls/hr IVPB Q8H [facility] Rx#: [id number] Potassium Chloride 10 meq 200 In Water For Injection 1 100ml.bag @ 100 mls/hr IVPB Q1H [facility] Rx#: [id number] Potassium Chloride 20 meq 125 In Water For Injection 1 100ml.bag @ 50 mls/hr IVPB Q2H [facility] Rx#: [id number] Sodium Chloride 0.9% 1, 3000 1100 300 000 ml @ 100 mls/hr IV . Q10H [facility] Rx#:[id number] Intake, IV Titration 84.918 306.572 56.868 Amount Norepinephrine 4 mg In 57.616 Sodium Chloride 0.9% 250 ml @ 0.03 MCG/KG/MIN 5. 444 mls/hr IV .Q24H [facility] Rx#:[id number] propofoL 1,000 mg In 84.918 248.956 56.868 Empty Bag 1 bag @ 15 MCG/ KG/MIN 4.286 mls/hr IV . [id number] [facility] Rx#:[id number] Output: Chest Tube Drainage 0 Chest Tube Right Right 0 Pleural/Mediastinal Urine 985 595 130 Other: Voiding Method Indwelling Catheter Indwelling Catheter ABP, PAP, CO, CI - Last Documented Arterial Blood Pressure 119/58 - Exam Physical Exam: Revealed a 62-year-old female intubated, mechanically, sedated, in no distress. Head: Atraumatic normocephalic HEENT:[Neck is supple.] [No neck masses.] [No thyromegaly.] [No JVD.] Endotracheal tube and orogastric tube are intact Chest: [Symmetrical chest expansion clear bilaterally no rhonchi and no wheezes Cardiac Exam: [Normal S1 and S2, no S3 gallop, no murmur.] Abdomen: [Soft, nontender, no megaly, no rebound, no guarding, normal bowel sounds.] Extremities: [No clubbing, no edema, no cyanosis.] Neurological Exam: Could not assess, patient is sedated however on lower dose of sedation she becomes extremely agitated and restless, and needs to be on a relatively higher dose of propofol according to nurse taking care of the patient. Psychiatric: Could not assess. Skin: No rashes. - Labs CBC & Chem 7: 11/03/22 03:55 11/03/22 03:55 Labs: Abnormal Lab Results - Last 24 Hours (Table) 11/02/22 11/02/22 11/02/22 Range/Units 09:53 11:33 17:42 WBC (3.8-10.6) k/uL RBC (3.80-5.40) m/uL Hgb (11.4-16.0) gm/dL Hct (34.0-46.0) % RDW (11.5-15.5) % Neutrophils # (1.3-7.7) k/uL Lymphocytes # (1.0-4.8) k/uL ABG pO2 (83-108) mmHg ABG Total CO2 (19-24) mmol/L ABG O2 Saturation (94-97) % Sodium (137-145) mmol/L Creatinine (0.52-1.04) mg/dL Glucose (74-99) mg/dL POC Glucose (mg/dL) 245 H 202 H (70-110) mg/dL Calcium (8.4-10.2) mg/dL Magnesium (1.6-2.3) mg/dL Urine Protein Trace H (Negative) 11/02/22 11/03/22 11/03/22 Range/Units 23:50 03:55 03:55 WBC 11.5 H (3.8-10.6) k/uL RBC 2.65 L (3.80-5.40) m/uL Hgb 7.5 L (11.4-16.0) gm/dL Hct 22.6 L (34.0-46.0) % RDW 17.1 H (11.5-15.5) % Neutrophils # 10.8 H (1.3-7.7) k/uL Lymphocytes # 0.5 L (1.0-4.8) k/uL ABG pO2 (83-108) mmHg ABG Total CO2 (19-24) mmol/L ABG O2 Saturation (94-97) % Sodium 134 L (137-145) mmol/L Creatinine 0.41 L (0.52-1.04) mg/dL Glucose 176 H (74-99) mg/dL POC Glucose (mg/dL) 147 H (70-110) mg/dL Calcium 7.2 L (8.4-10.2) mg/dL Magnesium 2.4 H (1.6-2.3) mg/dL Urine Protein (Negative) 11/03/22 11/03/22 Range/Units 05:29 05:52 WBC (3.8-10.6) k/uL RBC (3.80-5.40) m/uL Hgb (11.4-16.0) gm/dL Hct (34.0-46.0) % RDW (11.5-15.5) % Neutrophils # (1.3-7.7) k/uL Lymphocytes # (1.0-4.8) k/uL ABG pO2 138 H (83-108) mmHg ABG Total CO2 25 H (19-24) mmol/L ABG O2 Saturation 99.1 H (94-97) % Sodium (137-145) mmol/L Creatinine (0.52-1.04) mg/dL Glucose (74-99) mg/dL POC Glucose (mg/dL) 190 H (70-110) mg/dL Calcium (8.4-10.2) mg/dL Magnesium (1.6-2.3) mg/dL Urine Protein (Negative) Microbiology - Last 24 Hours (Table) 11/02/22 08:15 Gram Stain - Preliminary Sputum Assessment and Plan Assessment: Impression: Acute hypoxemic respiratory failure, related to aspiration pneumonia. Remains i ntubated with mechanical ventilator. Hypotension with sepsis and septic shock, required norepinephrine at 0.04 chronic ventricular per minute Leukocytosis, secondary to above Normocytic anemia, there is coffee-ground gastric fluid coming from OG tube, patient is on Protonix 40 mg IV push twice a day Hypomagnesemia, replaced History of bulimia History of alcoholism and Wernicke's encephalopathy Hypothyroidism Acute aspiration pneumonia Iatrogenic right-sided pneumothorax following right subclavian line placement attempt Recommendation: Continue ventilatory support Continue antibiotics Adjust endotracheal tube placement Nutritional support/enteral feeding Continue GI and DVT prophylaxis with Protonix and continue Lovenox Continue sedation/propofol and adjust accordingly Adjust ventilator settings accordingly based on ABG Discontinue chest tube suction placed on waterseal, there is no evidence of air leak today noted pneumothorax is rather extremely small Not quite ready for extubation Continue bronchodilators and steroids. Critical care time is over 30 minutes We will continue to follow. Time with Patient: Greater than 30
[2022-11-03 11:54] LABS: Glucose,Whole Blood 178 mg/dL (70-110)
[2022-11-03 12:05] LABS: Glucose,Whole Blood 176 mg/dL (70-110)
[2022-11-03] MEDS: LEVOTHYROXINE IVP 100 MCG/5 ML VIAL IV SCH (12:21)
[2022-11-03 12:42] LABS: Ionized Calcium 4.3 mg/dL (4.5-5.3)
[2022-11-03 12:53] LABS: Magnesium 2.4 mg/dL (1.6-2.3); Phosphorus 2.5 mg/dL (2.5-4.5); Potassium 4.3 mmol/L (3.5-5.1)
[2022-11-03 13:04] LABS: C Reactive Protein 18.3 mg/dL (<1.0)
--- NOTE | 2022-11-03 15:33 | P.PN ---
Subjective Progress Note Date: 11/03/22 patient is a 62-year-old lady with past medical history significant for alcohol use disorder, Wernicke's encephalopathy, hypertension, history of bulimia nervosa, hypothyroidism who was recently discharged from our hospital after being treated for nausea vomiting and pneumonia, was discharged on oral antibiotics. Patient came back to the ER for worsening cough and vomiting. Patient was having productive cough. her fever or chills. No complaint of shortness of breath. No coughing of palpitations. Initial lab work done in the ER showed WBC 15.3, hemoglobin 10.5, platelet count 278, sodium 132, potassium 3.7 BUN 14 magnesium 1.3 Chest x-ray done in the ER showed increased interstitial markings, greater on the right and mildly increased, few patchy opacities in the right lung Patient continued to have increasing nausea and vomiting in the ER, there was concern for patient to protect her airway so patient was intubated in the ER and was transferred to ICU 11/03. Patient seen and examined. WBC 11.5, hemoglobin 7.5, sodium 134, potassium 3.5, BUN 16, creatinine 0.41. Continues to be on vent REVIEW OF SYSTEMS: Patient currently intubated and sedated PHYSICAL EXAMINATION: GENERAL: The patient is intubated and sedated HEENT: Pupils are round and equally reacting to light. EOMI. No scleral icterus. No conjunctival pallor. Normocephalic, atraumatic. No pharyngeal erythema. No thyromegaly. CARDIOVASCULAR: S1 and S2 present. No murmurs, rubs, or gallops. PULMONARY: Coarse breath some bilaterally, bilateral expiratory rhonchi audible ABDOMEN: Soft, nontender, nondistended, normoactive bowel sounds. No palpable organomegaly. MUSCULOSKELETAL: No joint swelling or deformity. EXTREMITIES: No cyanosis, clubbing, or pedal edema. NEUROLOGICAL: Cannot be obtained as Patient is intubated and sedated SKIN: No rashes. Assessment and plan Acute hypoxemic respiratory failure Aspiration pneumonia Hypotension and suspected septic shock Leukocytosis Anemia Hypomagnesemia History of bulimia History of alcoholism and Wernicke's encephalopathy Hypothyroidism Iatrogenic right-sided pneumothorax following right subclavian line placement attempt Monitor vital signs Monitor CBC Monitor CMP Follow-up blood cultures Follow up on sputum cultures Aggressive bronchopulmonary hygiene Continue Zosyn Continue chest tube management per pulmonary Continue vent management per critical care ID following labs and medication were reviewed.. Continue same treatment. Continue with symptomatic treatment. Resume home medication. Monitor labs and vitals. DVT and GI prophylaxis. Further recommendations as per clinical course of the patient Dictation was produced using [employer] dictation software. please excuse any grammatical, word or spelling errors. Objective - Vital Signs Vital signs: Vital Signs Temp 97.3 F L 11/03/22 09:00 Pulse 72 11/03/22 09:00 Resp 24 11/03/22 09:00 BP 118/69 11/03/22 09:00 Pulse Ox 98 11/03/22 09:00 FiO2 35 11/03/22 09:00 Intake & Output 11/02/22 11/03/22 11/03/22 18:59 06:59 18:59 Intake Total 3784.918 1531.572 450 Output Total 985 595 130 Balance 2799.918 936.572 320 Weight 47.627 kg 63 kg Intake: IV 3700 1225 450 Ampicillin-Sulbactam 3 gm 100 In Sodium Chloride 0.9% 100 ml @ 200 mls/hr IVPB Q8HR [facility] Rx#:[id number] Magnesium Sulfate-D5w Pmx 400 1 gm In Dextrose/Water 1 100ml.bag @ 100 mls/hr IVPB Q1H [facility] Rx#: [id number] Piperacillin-Tazobactam 3 125 25 .375 gm In Sodium Chloride 0.9% 100 ml @ 25 mls/hr IVPB Q8H [facility] Rx#: [id number] Potassium Chloride 10 meq 200 In Water For Injection 1 100ml.bag @ 100 mls/hr IVPB Q1H [facility] Rx#: [id number] Potassium Chloride 20 meq 125 In Water For Injection 1 100ml.bag @ 50 mls/hr IVPB Q2H [facility] Rx#: [id number] Sodium Chloride 0.9% 1, 3000 1100 300 000 ml @ 100 mls/hr IV . Q10H [facility] Rx#:[id number] Intake, IV Titration 84.918 306.572 Amount Norepinephrine 4 mg In 57.616 Sodium Chloride 0.9% 250 ml @ 0.03 MCG/KG/MIN 5. 444 mls/hr IV .Q24H [facility] Rx#:[id number] propofoL 1,000 mg In 84.918 248.956 Empty Bag 1 bag @ 15 MCG/ KG/MIN 4.286 mls/hr IV . [id number] [facility] Rx#:[id number] Output: Chest Tube Drainage 0 Chest Tube Right Right 0 Pleural/Mediastinal Urine 985 595 130 Other: Voiding Method Indwelling Catheter Indwelling Catheter ABP, PAP, CO, CI - Last Documented Arterial Blood Pressure 119/58 - Labs CBC & Chem 7: 11/03/22 03:55 11/03/22 12:04 Labs: Abnormal Lab Results - Last 24 Hours (Table) 11/02/22 11/02/22 11/02/22 Range/Units 09:53 11:33 17:42 WBC (3.8-10.6) k/uL RBC (3.80-5.40) m/uL Hgb (11.4-16.0) gm/dL Hct (34.0-46.0) % RDW (11.5-15.5) % Neutrophils # (1.3-7.7) k/uL Lymphocytes # (1.0-4.8) k/uL ABG pO2 (83-108) mmHg ABG Total CO2 (19-24) mmol/L ABG O2 Saturation (94-97) % Sodium (137-145) mmol/L Creatinine (0.52-1.04) mg/dL Glucose (74-99) mg/dL POC Glucose (mg/dL) 245 H 202 H (70-110) mg/dL Calcium (8.4-10.2) mg/dL Magnesium (1.6-2.3) mg/dL Urine Protein Trace H (Negative) 11/02/22 11/03/22 11/03/22 Range/Units 23:50 03:55 03:55 WBC 11.5 H (3.8-10.6) k/uL RBC 2.65 L (3.80-5.40) m/uL Hgb 7.5 L (11.4-16.0) gm/dL Hct 22.6 L (34.0-46.0) % RDW 17.1 H (11.5-15.5) % Neutrophils # 10.8 H (1.3-7.7) k/uL Lymphocytes # 0.5 L (1.0-4.8) k/uL ABG pO2 (83-108) mmHg ABG Total CO2 (19-24) mmol/L ABG O2 Saturation (94-97) % Sodium 134 L (137-145) mmol/L Creatinine 0.41 L (0.52-1.04) mg/dL Glucose 176 H (74-99) mg/dL POC Glucose (mg/dL) 147 H (70-110) mg/dL Calcium 7.2 L (8.4-10.2) mg/dL Magnesium 2.4 H (1.6-2.3) mg/dL Urine Protein (Negative) 11/03/22 11/03/22 Range/Units 05:29 05:52 WBC (3.8-10.6) k/uL RBC (3.80-5.40) m/uL Hgb (11.4-16.0) gm/dL Hct (34.0-46.0) % RDW (11.5-15.5) % Neutrophils # (1.3-7.7) k/uL Lymphocytes # (1.0-4.8) k/uL ABG pO2 138 H (83-108) mmHg ABG Total CO2 25 H (19-24) mmol/L ABG O2 Saturation 99.1 H (94-97) % Sodium (137-145) mmol/L Creatinine (0.52-1.04) mg/dL Glucose (74-99) mg/dL POC Glucose (mg/dL) 190 H (70-110) mg/dL Calcium (8.4-10.2) mg/dL Magnesium (1.6-2.3) mg/dL Urine Protein (Negative) Microbiology - Last 24 Hours (Table) 11/02/22 08:15 Gram Stain - Preliminary Sputum
--- NOTE | 2022-11-03 15:55 | P.PN ---
Subjective Progress Note Date: 11/03/22 Principal diagnosis: Aspiration pneumonia Patient is a 62-year-old female with a past medical history negative for hypertension reflux bulimia hypothyroidism recently admitted to hospital for acute kidney injury and electrolyte imbalance and was discharged on 10/31/2022 p atient has been brought back to the hospital within 24 hours with intractable nausea vomiting emesis patient did have acute respiratory distress and evidence of aspiration pneumonia requiring intubation and admission to the ICU on today's evaluation that is 11/03/2022, the patient is afebrile patient is requiring low-dose pressor support, patient FiO2 is down to 35%, the patient did not have significant purulent secretion through the ET as reported by the nursing staff patient is currently connected to OG and is generally significant amount of gastric secretions no bowel movement has been reported. The patient white count is down to 11.5 with a left shift creatinine is 0.41 urine is negative blood and sputum cultures currently pending Objective - Vital Signs Vital signs: Vital Signs Temp 97.3 F L 11/03/22 09:00 Pulse 60 11/03/22 11:39 Resp 21 11/03/22 11:00 BP 118/69 11/03/22 10:00 Pulse Ox 98 11/03/22 11:00 FiO2 35 11/03/22 11:40 Intake & Output 11/02/22 11/03/22 11/03/22 18:59 06:59 18:59 Intake Total 3784.918 1531.572 706.868 Output Total 985 595 440 Balance 2799.918 936.572 266.868 Weight 47.627 kg 63 kg 63 kg Intake: IV 3700 1225 650 Ampicillin-Sulbactam 3 gm 100 In Sodium Chloride 0.9% 100 ml @ 200 mls/hr IVPB Q8HR [facility] Rx#:[id number] Magnesium Sulfate-D5w Pmx 400 1 gm In Dextrose/Water 1 100ml.bag @ 100 mls/hr IVPB Q1H [facility] Rx#: [id number] Piperacillin-Tazobactam 3 125 25 .375 gm In Sodium Chloride 0.9% 100 ml @ 25 mls/hr IVPB Q8H [facility] Rx#: [id number] Potassium Chloride 10 meq 200 In Water For Injection 1 100ml.bag @ 100 mls/hr IVPB Q1H [facility] Rx#: [id number] Potassium Chloride 20 meq 125 In Water For Injection 1 100ml.bag @ 50 mls/hr IVPB Q2H [facility] Rx#: [id number] Sodium Chloride 0.9% 1, 3000 1100 500 000 ml @ 100 mls/hr IV . Q10H [facility] Rx#:[id number] Intake, IV Titration 84.918 306.572 56.868 Amount Norepinephrine 4 mg In 57.616 Sodium Chloride 0.9% 250 ml @ 0.03 MCG/KG/MIN 5. 444 mls/hr IV .Q24H [facility] Rx#:[id number] propofoL 1,000 mg In 84.918 248.956 56.868 Empty Bag 1 bag @ 15 MCG/ KG/MIN 4.286 mls/hr IV . [id number] [facility] Rx#:[id number] Output: Chest Tube Drainage 0 Chest Tube Right Right 0 Pleural/Mediastinal Gastric Drainage 250 Urine 985 595 190 Other: Voiding Method Indwelling Catheter Indwelling Catheter ABP, PAP, CO, CI - Last Documented Arterial Blood Pressure 103/48 - Exam GENERAL DESCRIPTION: A middle-aged female intubated on the vent RESPIRATORY SYSTEM: Unlabored breathing , decreased breath sounds at bases HEART: S1 S2 regular rate and rhythm , ABDOMEN: Soft , no tenderness EXTREMITIES: No edema feet - Labs CBC & Chem 7: 11/03/22 03:55 11/03/22 12:04 Labs: Abnormal Lab Results - Last 24 Hours (Table) 11/02/22 11/02/22 11/03/22 Range/Units 17:42 23:50 03:55 WBC 11.5 H (3.8-10.6) k/uL RBC 2.65 L (3.80-5.40) m/uL Hgb 7.5 L (11.4-16.0) gm/dL Hct 22.6 L (34.0-46.0) % RDW 17.1 H (11.5-15.5) % Neutrophils # 10.8 H (1.3-7.7) k/uL Lymphocytes # 0.5 L (1.0-4.8) k/uL ABG pO2 (83-108) mmHg ABG Total CO2 (19-24) mmol/L ABG O2 Saturation (94-97) % Sodium (137-145) mmol/L Creatinine (0.52-1.04) mg/dL Glucose (74-99) mg/dL POC Glucose (mg/dL) 202 H 147 H (70-110) mg/dL Calcium (8.4-10.2) mg/dL Magnesium (1.6-2.3) mg/dL 11/03/22 11/03/22 11/03/22 Range/Units 03:55 05:29 05:52 WBC (3.8-10.6) k/uL RBC (3.80-5.40) m/uL Hgb (11.4-16.0) gm/dL Hct (34.0-46.0) % RDW (11.5-15.5) % Neutrophils # (1.3-7.7) k/uL Lymphocytes # (1.0-4.8) k/uL ABG pO2 138 H (83-108) mmHg ABG Total CO2 25 H (19-24) mmol/L ABG O2 Saturation 99.1 H (94-97) % Sodium 134 L (137-145) mmol/L Creatinine 0.41 L (0.52-1.04) mg/dL Glucose 176 H (74-99) mg/dL POC Glucose (mg/dL) 190 H (70-110) mg/dL Calcium 7.2 L (8.4-10.2) mg/dL Magnesium 2.4 H (1.6-2.3) mg/dL 11/03/22 11/03/22 Range/Units 11:52 12:04 WBC (3.8-10.6) k/uL RBC (3.80-5.40) m/uL Hgb (11.4-16.0) gm/dL Hct (34.0-46.0) % RDW (11.5-15.5) % Neutrophils # (1.3-7.7) k/uL Lymphocytes # (1.0-4.8) k/uL ABG pO2 (83-108) mmHg ABG Total CO2 (19-24) mmol/L ABG O2 Saturation (94-97) % Sodium (137-145) mmol/L Creatinine (0.52-1.04) mg/dL Glucose (74-99) mg/dL POC Glucose (mg/dL) 178 H 176 H (70-110) mg/dL Calcium (8.4-10.2) mg/dL Magnesium (1.6-2.3) mg/dL Microbiology - Last 24 Hours (Table) 11/02/22 08:15 Gram Stain - Preliminary Sputum Assessment and Plan (1) Aspiration pneumonia Current Visit: Yes Status: Acute Code(s): J69.0 - PNEUMONITIS DUE TO INHALATION OF FOOD AND VOMIT SNOMED Code(s): 060855887 Plan: 1patient was in the hospital with sepsis in this patient who with tachycardia hypotension requiring pressor support patient white count source likely aspiration pneumonia in this patient recent discharge from hospital will need to cover for the resistant gram-negative to be the likely pathogen 2-blood and sputum cultures obtained and currently pending 3Patient to continue with Zosyn while waiting for the culture to finalize and monitor clinical course closely Dictation was produced using [employer] dictation software. please excuse any grammatical, word or spelling errors. Time with Patient: Less than 30
[2022-11-03] MEDS ORDERED: SODIUM CHLORIDE 0.9% 1,000 ML IV ONE (16:17)
[2022-11-03 17:51] LABS: Glucose,Whole Blood 161 mg/dL (70-110)
[2022-11-03] MEDS: NOREPINEPHRINE 4 MG in SODIUM CHLORIDE 0.9% 250 ML IV SCH (21:08)
[2022-11-03 23:28] LABS: Glucose,Whole Blood 144 mg/dL (70-110)
[2022-11-04] MEDS: IPRATROPIUM-ALBUTEROL 3 ML NEB INHALATION SCH ×6 (03:07→23:14)
[2022-11-04] MEDS: PIPERACILLIN-TAZOBACTAM 3.375 GM in SODIUM CHLORIDE 0.9% 100 ML IVPB SCH ×3 (04:56→21:03)
[2022-11-04] MEDS: methylPREDNISolone SOD SUCCI 125 MG/2 ML VIAL IV SCH ×4 (04:56→23:26)
[2022-11-04 05:27] LABS: Anisocytosis Slight; Basophils % (A) 0 %; Eosinophils % (A) 0 %; HCT 21.1 % (34.0-46.0); HGB 7.1 gm/dL (11.4-16.0); Hypochromasia Slight; Lymphocytes # (A) 0.5 k/uL (1.0-4.8); Lymphocytes % (A) 4 %; MCH 28.8 pg (25.0-35.0); MCHC 33.6 g/dL (31.0-37.0); MCV 85.8 fL (80.0-100.0); Mean Platelet Volume 8.3; Monocytes # (A) 0.3 k/uL (0-1.0); Monocytes % (A) 2 %; Neutrophils # (A) 10.7 k/uL (1.3-7.7); Neutrophils % (A) 93 %; Platelet Count 250 k/uL (150-450); RBC 2.46 m/uL (3.80-5.40); RDW 17.2 % (11.5-15.5); WBC 11.6 k/uL (3.8-10.6)
[2022-11-04 05:55] LABS: ABG Base Excess -4.6 mmol/L; ABG HCO3 20 mmol/L (21-25); ABG Oxygen Saturation 98.8 % (94-97); ABG PCO2 31 mmHg (35-45); ABG PH 7.42 (7.35-7.45); ABG PO2 125 mmHg (83-108); ABG TCO2 21 mmol/L (19-24)
[2022-11-04 05:57] LABS: Allen Test Performed? no
[2022-11-04 06:20] LABS: African American GFR (CKD) >90 (>60 ml/min/1.73 sqM); Anion Gap 7 mmol/L; Blood Urea Nitrogen 17 mg/dL (7-17); Calcium 6.7 mg/dL (8.4-10.2); Carbon Dioxide 18 mmol/L (22-30); Chloride 113 mmol/L (98-107); Glucose 130 mg/dL (74-99); Non-African American GFR(CKD) >90 (>60 ml/min/1.73 sqM); Potassium 3.9 mmol/L (3.5-5.1); Sodium 138 mmol/L (137-145)
[2022-11-04] MEDS: INSULIN ASPART (NovoLOG) 100 UNIT/ML VIAL SQ SCH ×4 (06:24→23:27)
[2022-11-04] MEDS ORDERED: Potassium Replacement Protocol 1 EACH MISC MISCELLANE PRN (06:24)
--- NOTE | 2022-11-04 07:04 | XR ---
EXAMINATION TYPE: XR chest 1V DATE OF EXAM: 11/04/2022 HISTORY: Shortness of breath. COMPARISON: 11/03/2022 TECHNIQUE: Single view of the chest is submitted. FINDINGS: Demonstrated are scattered senescent parenchymal change. Small right apical pneumothorax is decrease d in size with apical pleural distance of 8 mm versus 1.5 cm previously. Right-sided chest tube, righ t IJ central venous line, endotracheal tube and NG tube are unchanged in position. Mixed alveolar and interstitial infiltrate right mid and right lower lung zone. Mild strandy density left medial lung b ase. The heart is stable. Hilar and mediastinal structures are within normal limits. Degenerative changes are seen of the dorsal spine. IMPRESSION: 1. Persistent but improving less than 10% right apical pneumothorax. 2. Stable right perihilar and right basilar mixed infiltrates. Stable left medial basilar atelectasis or additional infiltrate.
[2022-11-04] MEDS ORDERED: POTASSIUM CHLORIDE 20 MEQ in WATER FOR INJECTION 1 100ML.BAG IVPB SCH (07:30)
[2022-11-04] MEDS ORDERED: SODIUM CHLORIDE 0.9% 1,000 ML IV ONE (08:16)
[2022-11-04] MEDS: LEVOTHYROXINE IVP 100 MCG/5 ML VIAL IV SCH (08:18)
[2022-11-04] MEDS: PANTOPRAZOLE 40 MG/10 ML VIAL IVP SCH ×2 (08:19→20:58)
[2022-11-04] MEDS: ENOXAPARIN 40 MG/0.4 ML SYRINGE SQ SCH (08:19)
[2022-11-04] MEDS: CHLORHEXIDINE GLUCONATE 15 ML CUP MUCOUS MEM SCH ×2 (08:19→20:58)
--- NOTE | 2022-11-04 09:40 | P.PN ---
Subjective Progress Note Date: 11/04/22 Principal diagnosis: Acute hypoxic respiratory failure secondary to aspiration pneumonia with sepsis and septic shock. I am seeing this patient in consultation today 11/02/2022 in the intensive care unit for acute hypoxemic respiratory failure related to aspiration. Patient is a 62-year-old white female with past medical history significant for alcohol abuse, wernickes encephalopathy, hypertension, hypothyroidism, bulimia, and resides at an [facility]. Patient was just recently admitted to the hospital for acute kidney injury and electrolyte abnormalities, and was discharged on October 31 back to her ECF, [facility]. The patient is currently intubated and unable to provide information. Patient was reportedly brought into the emergency room early this morning with intractable nausea and vomiting. Emesis was described as coffee ground. The patient did end up aspirating, and was in some severe respiratory distress. She was intubated by the ER physician with a #7 ET tube. There was reported upper airway edema, and she was a difficult intubation. She was started on high-dose steroids. Initial post-intubation chest x-ray shows increased interstitial markings with patchy right lung opacities. Endotracheal tube was 5 cm above the laila and could be advanced 1-2 cm. The orogastric tube was within the proximal stomach. Current ventilator settings are assist control, respiratory rate 16, tidal 450, FiO2 100%, PEEP of 5. ABGs on these setting show a pO2 greater than 400, pCO2 39, and pH of 7.47. FiO2 was decreased at 40%. Patient is sedated on 30 mg/kg/m of propofol. She still quite anxious and asynchronous with the mechanical ventilator. This will be t itrated for synchrony and appropriate RASS. Peak pressures are 29 and plateau pressure are 15, there is some airway resistance, and presumptive brown gastric fluid within the ET tube and circuit. Blood pressure was reportedly hypotensive in the emergency room. She's received 1 L normal saline bolus in the emergency room, and has a second normal saline bolus infusing currently. BP is currently normotensive. Orogastric tube is currently to low intermittent suction. There is coffee ground gastric output. She was empirically started on Unasyn. Nonenhanced CT of the chest, abdomen, pelvis demonstrated patchy bilateral airspace opacities greater on the right, left pelvic hernia containing bowel loops without evidence of obstruction, moderately distended fluid-filled stomach, and a nonobstructing right renal calculus. CBC on arrival shows a WBC count of 15.3, hemoglobin 10.5, hematocrit 31.8, platelets 278. BMP on arrival shows sodium 132, potassium 3.7, chloride 93, serum bicarb 28, BUN 14, creatinine 0.5, glucose 116. Lactic acid level was 2. A Reich catheter will be inserted. Patient will be monitored in the intensive care unit. Reevaluated today 11/03/2022, patient remains currently intubated. She is on assist control rate of 16 volume 400 FiO2 35% and PEEP of 5 she was earlier on rate of 18 and FiO2 40% and these were changed. ABG showed a pO2 of 138, P CO2 of 35 pH of 7.45 and then setting changes were made as above. Patient dropped her hemoglobin admitted down to 7.5, she did have positive guaiac/gastric secretions hence Protonix was increased to twice a day and no need to transfuse any blood at this point. Platelets are 219. Electrolytes are normal potassium is 3.5 being corrected as per protocol. Renal profile is normal. Chest x-ray showed small tiny right apical pneumothorax, scattered patchy infiltrates right more so than left, with aspiration pneumonia endotracheal tube was noted to be admitted to distal and we recommended following that she will at least 2cm proximally patient remains on broad-spectrum antibiotics, and/Zosyn. Patient remains on GI and DVT prophylaxis, she is requiring a small dose of norepinephrine today at 0.04 mcg/kg/m she is on propofol at 60 mcg/kg/m IV fluids 100 mL/h, and enteral feeding will be started today. Reevaluated, patient remains in the ICU, intubated and mechanically ventilated. She is on assist control rate of 16 tidal volume 400 FiO2 35% PEEP of 5, ABG showed a pO2 of 125 pCO2 31 pH of 7.42. Her propofol is a 65 mcg/kg/m, she is now off norepinephrine, urine output remains marginal, blood pressure is marginal #7 recommending another liter of fluid boluses in the form of 0.9 normal saline. Continue IV fluid at 100 mL per hour, advised to have a CVP monitor on this patient today. In the meantime the patient remains on Zosyn for aspiration pneumonia, chest x-ray continues to show bilateral infiltrates right more so than left. She is receiving Zosyn for aspiration. Neurologically the patient still gets extremely agitated once she is off sedation, hence could not get an adequate trial of weaning off sedation because she is extremely restless agitated, I plan to consider using Precedex in the next 24 hours, and give the patient trials of weaning possibly tomorrow. Depending how well she does with Precedex. WBC count is 11.6 hemoglobin is holding at 7.1 platelets are 250,000. Basic metabolic profile and renal profile are normal; pro calcitonin level is 4.45 Objective - Vital Signs Vital signs: Vital Signs Temp 98.3 F 11/04/22 08:00 Pulse 87 11/04/22 08:10 Resp 17 11/04/22 08:00 BP 124/83 11/04/22 07:30 Pulse Ox 98 11/04/22 08:00 FiO2 35 11/04/22 08:02 Intake & Output 11/03/22 11/04/22 11/04/22 18:59 06:59 18:59 Intake Total 2493.319 1559.804 187.587 Output Total 602 593 25 Balance 1891.319 966.804 162.587 Weight 63 kg 63.5 kg Intake: IV 2160 1300 100 Piperacillin-Tazobactam 3 125 .375 gm In Sodium Chloride 0.9% 100 ml @ 25 mls/hr IVPB Q8H [facility] Rx#: [id number] Potassium Chloride 20 meq 125 100 In Water For Injection 1 100ml.bag @ 50 mls/hr IVPB Q2H [facility] Rx#: [id number] Sodium Chloride 0.9% 1, 1910 1300 000 ml @ 100 mls/hr IV . Q10H [facility] Rx#:[id number] Intake, IV Titration 333.319 259.804 87.587 Amount Norepinephrine 4 mg In 76.451 32.237 27.218 Sodium Chloride 0.9% 250 ml @ 0.03 MCG/KG/MIN 5. 444 mls/hr IV .Q24H [facility] Rx#:[id number] Sodium Chloride 0.9% 1, 100 000 ml @ 100 mls/hr IV . Q10H [facility] Rx#:[id number] propofoL 1,000 mg In 156.868 227.567 60.369 Empty Bag 1 bag @ 15 MCG/ KG/MIN 4.286 mls/hr IV . [id number] [facility] Rx#:[id number] Output: Chest Tube Drainage 0 Chest Tube Right Right 0 Pleural/Mediastinal Gastric Drainage 250 350 Urine 352 243 25 Other: Voiding Method Indwelling Catheter Indwelling Catheter ABP, PAP, CO, CI - Last Documented Arterial Blood Pressure 120/54 - Exam Physical Exam: Revealed a 62-year-old female intubated, mechanically, sedated, in no distress. Head: Atraumatic normocephalic HEENT:[Neck is supple.] [No neck masses.] [No thyromegaly.] [No JVD.] Endotracheal tube and orogastric tube are intact Chest: [Symmetrical chest expansion clear bilaterally no rhonchi and no wheezes Cardiac Exam: [Normal S1 and S2, no S3 gallop, no murmur.] Abdomen: [Soft, nontender, no megaly, no rebound, no guarding, normal bowel sounds.] Extremities: [No clubbing, no edema, no cyanosis.] Neurological Exam: Could not assess, on propofol. Psychiatric: Could not assess. Skin: No rashes. - Labs CBC & Chem 7: 11/04/22 04:45 11/04/22 04:45 Labs: Abnormal Lab Results - Last 24 Hours (Table) 11/03/22 11/03/22 11/03/22 Range/Units 03:55 11:52 12:04 WBC (3.8-10.6) k/uL RBC (3.80-5.40) m/uL Hgb (11.4-16.0) gm/dL Hct (34.0-46.0) % RDW (11.5-15.5) % Neutrophils # (1.3-7.7) k/uL Lymphocytes # (1.0-4.8) k/uL ABG pCO2 (35-45) mmHg ABG pO2 (83-108) mmHg ABG HCO3 (21-25) mmol/L ABG O2 Saturation (94-97) % Sodium 134 L (137-145) mmol/L Chloride (98-107) mmol/L Carbon Dioxide (22-30) mmol/L Creatinine 0.41 L (0.52-1.04) mg/dL Glucose 176 H (74-99) mg/dL POC Glucose (mg/dL) 178 H (70-110) mg/dL Calcium 7.2 L (8.4-10.2) mg/dL Ionized Calcium Juju 4.3 L (4.5-5.3) mg/dL Magnesium 2.4 H 2.4 H (1.6-2.3) mg/dL C-Reactive Protein 18.3 H (<1.0) mg/dL Procalcitonin (0.02-0.09) ng/mL 11/03/22 11/03/22 11/03/22 Range/Units 12:04 12:04 17:50 WBC (3.8-10.6) k/uL RBC (3.80-5.40) m/uL Hgb (11.4-16.0) gm/dL Hct (34.0-46.0) % RDW (11.5-15.5) % Neutrophils # (1.3-7.7) k/uL Lymphocytes # (1.0-4.8) k/uL ABG pCO2 (35-45) mmHg ABG pO2 (83-108) mmHg ABG HCO3 (21-25) mmol/L ABG O2 Saturation (94-97) % Sodium (137-145) mmol/L Chloride (98-107) mmol/L Carbon Dioxide (22-30) mmol/L Creatinine (0.52-1.04) mg/dL Glucose (74-99) mg/dL POC Glucose (mg/dL) 176 H 161 H (70-110) mg/dL Calcium (8.4-10.2) mg/dL Ionized Calcium Juju (4.5-5.3) mg/dL Magnesium (1.6-2.3) mg/dL C-Reactive Protein (<1.0) mg/dL Procalcitonin 4.45 H (0.02-0.09) ng/mL 11/03/22 11/04/22 11/04/22 Range/Units 23:27 04:45 04:45 WBC 11.6 H (3.8-10.6) k/uL RBC 2.46 L (3.80-5.40) m/uL Hgb 7.1 L (11.4-16.0) gm/dL Hct 21.1 L (34.0-46.0) % RDW 17.2 H (11.5-15.5) % Neutrophils # 10.7 H (1.3-7.7) k/uL Lymphocytes # 0.5 L (1.0-4.8) k/uL ABG pCO2 (35-45) mmHg ABG pO2 (83-108) mmHg ABG HCO3 (21-25) mmol/L ABG O2 Saturation (94-97) % Sodium (137-145) mmol/L Chloride 113 H (98-107) mmol/L Carbon Dioxide 18 L (22-30) mmol/L Creatinine 0.44 L (0.52-1.04) mg/dL Glucose 130 H (74-99) mg/dL POC Glucose (mg/dL) 144 H (70-110) mg/dL Calcium 6.7 L (8.4-10.2) mg/dL Ionized Calcium Juju (4.5-5.3) mg/dL Magnesium (1.6-2.3) mg/dL C-Reactive Protein (<1.0) mg/dL Procalcitonin (0.02-0.09) ng/mL 11/04/22 Range/Units 05:53 WBC (3.8-10.6) k/uL RBC (3.80-5.40) m/uL Hgb (11.4-16.0) gm/dL Hct (34.0-46.0) % RDW (11.5-15.5) % Neutrophils # (1.3-7.7) k/uL Lymphocytes # (1.0-4.8) k/uL ABG pCO2 31 L (35-45) mmHg ABG pO2 125 H (83-108) mmHg ABG HCO3 20 L (21-25) mmol/L ABG O2 Saturation 98.8 H (94-97) % Sodium (137-145) mmol/L Chloride (98-107) mmol/L Carbon Dioxide (22-30) mmol/L Creatinine (0.52-1.04) mg/dL Glucose (74-99) mg/dL POC Glucose (mg/dL) (70-110) mg/dL Calcium (8.4-10.2) mg/dL Ionized Calcium Juju (4.5-5.3) mg/dL Magnesium (1.6-2.3) mg/dL C-Reactive Protein (<1.0) mg/dL Procalcitonin (0.02-0.09) ng/mL Microbiology - Last 24 Hours (Table) 11/02/22 04:00 Blood Culture - Preliminary Blood 11/02/22 03:45 Blood Culture - Preliminary Blood 11/02/22 08:15 Gram Stain - Preliminary Sputum Assessment and Plan Assessment: Impression: Acute hypoxemic respiratory failure, related to aspiration pneumonia. Remains intubated with mechanical ventilator. Hypotension with sepsis and septic shock, required norepinephrine , however the patient is off norepinephrine today. Leukocytosis, secondary to above, improving. Normocytic anemia, there is coffee-ground gastric fluid coming from OG tube, patient is on Protonix 40 mg IV push twice a day Hypomagnesemia, replaced History of bulimia History of alcoholism and Wernicke's encephalopathy Hypothyroidism Acute aspiration pneumonia Iatrogenic right-sided pneumothorax following right subclavian line placement attempt Recommendation: Start enteral feeding today. In the meantime continue Protonix 40 mg twice a day Continue ventilatory support Continue antibiotics Continue GI and DVT Continue sedation/propofol and adjust accordingly may consider Precedex in the next 24 hours for trial of weaning Continue chest tube to waterseal, pneumothorax has almost resolved, tiny apical noted on the chest x-ray today Not quite ready for extubation Continue bronchodilators and steroids. Critical care time is over 30 minutes We will continue to follow. Time with Patient: Greater than 30
[2022-11-04 11:50] LABS: Glucose,Whole Blood 120 mg/dL (70-110)
[2022-11-04] MEDS: SODIUM CHLORIDE 0.9% 1,000 ML IV SCH ×2 (12:00→21:02)
--- NOTE | 2022-11-04 13:24 | P.PN ---
Subjective Progress Note Date: 11/04/22 patient is a 62-year-old lady with past medical history significant for alcohol use disorder, Wernicke's encephalopathy, hypertension, history of bulimia nervosa, hypothyroidism who was recently discharged from our hospital after being treated for nausea vomiting and pneumonia, was discharged on oral antibiotics. Patient came back to the ER for worsening cough and vomiting. Patient was having productive cough. her fever or chills. No complaint of shortness of breath. No coughing of palpitations. Initial lab work done in the ER showed WBC 15.3, hemoglobin 10.5, platelet count 278, sodium 132, potassium 3.7 BUN 14 magnesium 1.3 Chest x-ray done in the ER showed increased interstitial markings, greater on the right and mildly increased, few patchy opacities in the right lung Patient continued to have increasing nausea and vomiting in the ER, there was concern for patient to protect her airway so patient was intubated in the ER and was transferred to ICU 11/03. Patient seen and examined. WBC 11.5, hemoglobin 7.5, sodium 134, potassium 3.5, BUN 16, creatinine 0.41. Continues to be on vent 11/04. Patient seen and examined. Continues to be intubated. Patient off Levophed. Patient's urine output is minimal REVIEW OF SYSTEMS: Patient currently intubated and sedated PHYSICAL EXAMINATION: GENERAL: The patient is intubated HEENT: Pupils are round and equally reacting to light. EOMI. No scleral icterus. No conjunctival pallor. Normocephalic, atraumatic. No pharyngeal erythema. No thyromegaly. CARDIOVASCULAR: S1 and S2 present. No murmurs, rubs, or gallops. PULMONARY: Coarse breath some bilaterally, bilateral expiratory rhonchi audible. Chest tubes seen ABDOMEN: Soft, nontender, nondistended, normoactive bowel sounds. No palpable organomegaly. MUSCULOSKELETAL: No joint swelling or deformity. EXTREMITIES: No cyanosis, clubbing, or pedal edema. NEUROLOGICAL: Cannot be obtained as Patient is intubated SKIN: No rashes. Assessment and plan Acute hypoxemic respiratory failure Aspiration pneumonia Hypotension and suspected septic shock Leukocytosis Anemia Hypomagnesemia History of bulimia History of alcoholism and Wernicke's encephalopathy Hypothyroidism Iatrogenic right-sided pneumothorax following right subclavian line placement attempt Monitor vital signs Monitor CBC Monitor CMP Strict I's and O's, Continue IV fluids Follow-up blood cultures Follow up on sputum cultures Aggressive bronchopulmonary hygiene Continue Zosyn Continue chest tube management per pulmonary Continue vent management per critical care ID following labs and medication were reviewed.. Continue same treatment. Continue with symptomatic treatment. Resume home medication. Monitor labs and vitals. DVT and GI prophylaxis. Further recommendations as per clinical course of the patient Dictation was produced using [employer] dictation software. please excuse any grammatical, word or spelling errors. Objective - Vital Signs Vital signs: Vital Signs Temp 98.1 F 11/04/22 12:00 Pulse 83 11/04/22 12:00 Resp 25 H 11/04/22 12:00 BP 120/68 11/04/22 11:30 Pulse Ox 98 11/04/22 12:00 FiO2 35 11/04/22 12:00 Intake & Output 11/03/22 11/04/22 11/04/22 18:59 06:59 18:59 Intake Total 2493.319 5652.663 8636.587 Output Total 602 593 255 Balance 1891.319 485.704 9077.587 Weight 63 kg 63.5 kg 63.5 kg Intake: IV 2160 1300 1300 Piperacillin-Tazobactam 3 125 .375 gm In Sodium Chloride 0.9% 100 ml @ 25 mls/hr IVPB Q8H [facility] Rx#: [id number] Potassium Chloride 20 meq 125 100 In Water For Injection 1 100ml.bag @ 50 mls/hr IVPB Q2H [facility] Rx#: [id number] Sodium Chloride 0.9% 1, 1910 1300 200 000 ml @ 100 mls/hr IV . Q10H [facility] Rx#:[id number] Sodium Chloride 0.9% 1, 1000 000 ml @ 999 mls/hr IV . Q1H1M [facility] Rx#:[id number] Intake, IV Titration 333.319 259.804 87.587 Amount Norepinephrine 4 mg In 76.451 32.237 27.218 Sodium Chloride 0.9% 250 ml @ 0.03 MCG/KG/MIN 5. 444 mls/hr IV .Q24H [facility] Rx#:[id number] Sodium Chloride 0.9% 1, 100 000 ml @ 100 mls/hr IV . Q10H [facility] Rx#:[id number] propofoL 1,000 mg In 156.868 227.567 60.369 Empty Bag 1 bag @ 15 MCG/ KG/MIN 4.286 mls/hr IV . [id number] [facility] Rx#:[id number] Tube Feeding 20 Other 30 Output: Chest Tube Drainage 0 Chest Tube Right Right 0 Pleural/Mediastinal Gastric Drainage 250 350 150 Urine 352 243 105 Other: Voiding Method Indwelling Catheter Indwelling Catheter Indwelling Catheter ABP, PAP, CO, CI - Last Documented Arterial Blood Pressure 121/52 - Labs CBC & Chem 7: 11/04/22 04:45 11/04/22 04:45 Labs: Abnormal Lab Results - Last 24 Hours (Table) 11/03/22 11/03/22 11/03/22 Range/Units 12:04 17:50 23:27 WBC (3.8-10.6) k/uL RBC (3.80-5.40) m/uL Hgb (11.4-16.0) gm/dL Hct (34.0-46.0) % RDW (11.5-15.5) % Neutrophils # (1.3-7.7) k/uL Lymphocytes # (1.0-4.8) k/uL ABG pCO2 (35-45) mmHg ABG pO2 (83-108) mmHg ABG HCO3 (21-25) mmol/L ABG O2 Saturation (94-97) % Chloride (98-107) mmol/L Carbon Dioxide (22-30) mmol/L Creatinine (0.52-1.04) mg/dL Glucose (74-99) mg/dL POC Glucose (mg/dL) 161 H 144 H (70-110) mg/dL Calcium (8.4-10.2) mg/dL Procalcitonin 4.45 H (0.02-0.09) ng/mL 11/04/22 11/04/22 11/04/22 Range/Units 04:45 04:45 05:53 WBC 11.6 H (3.8-10.6) k/uL RBC 2.46 L (3.80-5.40) m/uL Hgb 7.1 L (11.4-16.0) gm/dL Hct 21.1 L (34.0-46.0) % RDW 17.2 H (11.5-15.5) % Neutrophils # 10.7 H (1.3-7.7) k/uL Lymphocytes # 0.5 L (1.0-4.8) k/uL ABG pCO2 31 L (35-45) mmHg ABG pO2 125 H (83-108) mmHg ABG HCO3 20 L (21-25) mmol/L ABG O2 Saturation 98.8 H (94-97) % Chloride 113 H (98-107) mmol/L Carbon Dioxide 18 L (22-30) mmol/L Creatinine 0.44 L (0.52-1.04) mg/dL Glucose 130 H (74-99) mg/dL POC Glucose (mg/dL) (70-110) mg/dL Calcium 6.7 L (8.4-10.2) mg/dL Procalcitonin (0.02-0.09) ng/mL 11/04/22 Range/Units 11:49 WBC (3.8-10.6) k/uL RBC (3.80-5.40) m/uL Hgb (11.4-16.0) gm/dL Hct (34.0-46.0) % RDW (11.5-15.5) % Neutrophils # (1.3-7.7) k/uL Lymphocytes # (1.0-4.8) k/uL ABG pCO2 (35-45) mmHg ABG pO2 (83-108) mmHg ABG HCO3 (21-25) mmol/L ABG O2 Saturation (94-97) % Chloride (98-107) mmol/L Carbon Dioxide (22-30) mmol/L Creatinine (0.52-1.04) mg/dL Glucose (74-99) mg/dL POC Glucose (mg/dL) 120 H (70-110) mg/dL Calcium (8.4-10.2) mg/dL Procalcitonin (0.02-0.09) ng/mL Microbiology - Last 24 Hours (Table) 11/02/22 04:00 Blood Culture - Preliminary Blood 11/02/22 03:45 Blood Culture - Preliminary Blood 11/02/22 08:15 Gram Stain - Final Sputum Sputum Culture - Final
[2022-11-04] MEDS ORDERED: FUROSEMIDE 10 MG/ML 4 ML VIAL IV STA (17:06)
[2022-11-04 17:52] LABS: Glucose,Whole Blood 122 mg/dL (70-110)
[2022-11-04] MEDS: SODIUM CHLORIDE 0.9% 80 ML with fentaNYL (PF) 1,000 MCG IV SCH ×2 (20:52)
[2022-11-04] MEDS: NOREPINEPHRINE 4 MG in SODIUM CHLORIDE 0.9% 250 ML IV SCH ×2 (20:59→22:52)
[2022-11-04 23:08] LABS: Glucose,Whole Blood 124 mg/dL (70-110)
[2022-11-05] MEDS: IPRATROPIUM-ALBUTEROL 3 ML NEB INHALATION SCH ×5 (03:19→20:17)
[2022-11-05] MEDS: methylPREDNISolone SOD SUCCI 125 MG/2 ML VIAL IV SCH ×3 (05:30→17:58)
[2022-11-05] MEDS: PIPERACILLIN-TAZOBACTAM 3.375 GM in SODIUM CHLORIDE 0.9% 100 ML IVPB SCH ×3 (05:31→20:38)
[2022-11-05 05:36] LABS: ABG Base Excess -3.4 mmol/L; ABG HCO3 21 mmol/L (21-25); ABG Oxygen Saturation 98.7 % (94-97); ABG PCO2 31 mmHg (35-45); ABG PH 7.44 (7.35-7.45); ABG PO2 109 mmHg (83-108); ABG TCO2 22 mmol/L (19-24)
[2022-11-05 05:37] LABS: Anisocytosis Slight; Basophils % (A) 0 %; Eosinophils % (A) 0 %; HCT 21.3 % (34.0-46.0); Hypochromasia Slight; Lymphocytes # (A) 0.6 k/uL (1.0-4.8); Lymphocytes % (A) 8 %; MCH 27.9 pg (25.0-35.0); MCHC 32.8 g/dL (31.0-37.0); MCV 85.3 fL (80.0-100.0); Mean Platelet Volume 9.3; Monocytes # (A) 0.2 k/uL (0-1.0); Monocytes % (A) 3 %; Neutrophils # (A) 6.6 k/uL (1.3-7.7); Neutrophils % (A) 88 %; Platelet Count 236 k/uL (150-450); Poikilocytosis Slight; RDW 17.2 % (11.5-15.5); WBC 7.6 k/uL (3.8-10.6)
[2022-11-05 05:38] LABS: Allen Test Performed? no
[2022-11-05 05:43] LABS: ALT 17 U/L (4-34); AST 13 U/L (14-36); African American GFR (CKD) >90 (>60 ml/min/1.73 sqM); Albumin 2.5 g/dL (3.5-5.0); Alkaline Phosphatase 50 U/L (38-126); Anion Gap 6 mmol/L; Blood Urea Nitrogen 21 mg/dL (7-17); Calcium 6.8 mg/dL (8.4-10.2); Carbon Dioxide 19 mmol/L (22-30); Chloride 113 mmol/L (98-107); Glucose 130 mg/dL (74-99); Non-African American GFR(CKD) >90 (>60 ml/min/1.73 sqM); Potassium 3.8 mmol/L (3.5-5.1); Sodium 138 mmol/L (137-145); Total Bilirubin 0.3 mg/dL (0.2-1.3); Total Protein 5.3 g/dL (6.3-8.2)
[2022-11-05] MEDS ORDERED: Potassium Replacement Protocol 1 EACH MISC MISCELLANE PRN (05:56)
[2022-11-05] MEDS: INSULIN ASPART (NovoLOG) 100 UNIT/ML VIAL SQ SCH ×3 (06:11→17:57)
[2022-11-05] MEDS: POTASSIUM CHLORIDE 10 MEQ in WATER FOR INJECTION 1 100ML.BAG IVPB SCH ×2 (06:17→07:05)
--- NOTE | 2022-11-05 08:25 | XR ---
EXAMINATION TYPE: XR chest 1V portable DATE OF EXAM: 11/05/2022 COMPARISON: 11/04/2022 HISTORY: SOB, Follow Up FINDINGS: Indwelling tubes and catheters are unchanged. No visible pneumothorax this time. Stable patchy right perihilar and right basilar infiltrate or atelectasis. Stable appearance of the cardio-mediastinal structures at this time. IMPRESSION: 1. Stable patchy right perihilar and right basilar infiltrate or atelectasis.No visible pneumothorax seen.
--- NOTE | 2022-11-05 09:42 | P.PN ---
Subjective Progress Note Date: 11/04/22 Principal diagnosis: Aspiration pneumonia Patient is a 62-year-old female with a past medical history negative for hypertension reflux bulimia hypothyroidism recently admitted to hospital for acute kidney injury and electrolyte imbalance and was discharged on 10/31/2022 p atient has been brought back to the hospital within 24 hours with intractable nausea vomiting emesis patient did have acute respiratory distress and evidence of aspiration pneumonia requiring intubation and admission to the ICU on today's evaluation that is 11/04/2022 patient remains to be afebrile, the patient is hemodynamically stable FiO2 is down to 35% no significant purulent secretion through the ET patient still for gastric suction no diarrhea has been reported. Patient did have a white count of 11.6 hemoglobin 7.1 creatinine 0.44 blood and sputum culture have been negative so far Objective - Vital Signs Vital signs: Vital Signs Temp 98.1 F 11/04/22 12:00 Pulse 58 L 11/04/22 15:51 Resp 25 H 11/04/22 15:00 BP 117/67 11/04/22 12:30 Pulse Ox 100 11/04/22 15:00 FiO2 35 11/04/22 15:40 Intake & Output 11/03/22 11/04/22 11/04/22 18:59 06:59 18:59 Intake Total 2493.319 4653.285 9401.231 Output Total 602 593 315 Balance 1891.319 408.756 2267.231 Weight 63 kg 63.5 kg 63.5 kg Intake: IV 2160 1300 1600 Piperacillin-Tazobactam 3 125 .375 gm In Sodium Chloride 0.9% 100 ml @ 25 mls/hr IVPB Q8H [facility] Rx#: [id number] Potassium Chloride 20 meq 125 100 In Water For Injection 1 100ml.bag @ 50 mls/hr IVPB Q2H [facility] Rx#: [id number] Sodium Chloride 0.9% 1, 1910 1300 500 000 ml @ 100 mls/hr IV . Q10H [facility] Rx#:[id number] Sodium Chloride 0.9% 1, 1000 000 ml @ 999 mls/hr IV . Q1H1M [facility] Rx#:[id number] Intake, IV Titration 333.319 259.804 192.231 Amount Norepinephrine 4 mg In 76.451 32.237 27.218 Sodium Chloride 0.9% 250 ml @ 0.03 MCG/KG/MIN 5. 444 mls/hr IV .Q24H [facility] Rx#:[id number] Sodium Chloride 0.9% 1, 100 000 ml @ 100 mls/hr IV . Q10H [facility] Rx#:[id number] propofoL 1,000 mg In 156.868 227.567 165.013 Empty Bag 1 bag @ 15 MCG/ KG/MIN 4.286 mls/hr IV . [id number] [facility] Rx#:[id number] Tube Feeding 50 Other 30 Output: Chest Tube Drainage 0 Chest Tube Right Right 0 Pleural/Mediastinal Gastric Drainage 250 350 150 Urine 352 243 165 Other: Voiding Method Indwelling Catheter Indwelling Catheter Indwelling Catheter ABP, PAP, CO, CI - Last Documented Arterial Blood Pressure 137/61 - Exam GENERAL DESCRIPTION: A middle-aged female intubated on the vent RESPIRATORY SYSTEM: Unlabored breathing , decreased breath sounds at bases HEART: S1 S2 regular rate and rhythm , ABDOMEN: Soft , no tenderness EXTREMITIES: No edema feet - Labs CBC & Chem 7: 11/05/22 05:00 11/05/22 05:00 Labs: Abnormal Lab Results - Last 24 Hours (Table) 11/03/22 11/03/22 11/03/22 Range/Units 12:04 17:50 23:27 WBC (3.8-10.6) k/uL RBC (3.80-5.40) m/uL Hgb (11.4-16.0) gm/dL Hct (34.0-46.0) % RDW (11.5-15.5) % Neutrophils # (1.3-7.7) k/uL Lymphocytes # (1.0-4.8) k/uL ABG pCO2 (35-45) mmHg ABG pO2 (83-108) mmHg ABG HCO3 (21-25) mmol/L ABG O2 Saturation (94-97) % Chloride (98-107) mmol/L Carbon Dioxide (22-30) mmol/L Creatinine (0.52-1.04) mg/dL Glucose (74-99) mg/dL POC Glucose (mg/dL) 161 H 144 H (70-110) mg/dL Calcium (8.4-10.2) mg/dL Procalcitonin 4.45 H (0.02-0.09) ng/mL 11/04/22 11/04/22 11/04/22 Range/Units 04:45 04:45 05:53 WBC 11.6 H (3.8-10.6) k/uL RBC 2.46 L (3.80-5.40) m/uL Hgb 7.1 L (11.4-16.0) gm/dL Hct 21.1 L (34.0-46.0) % RDW 17.2 H (11.5-15.5) % Neutrophils # 10.7 H (1.3-7.7) k/uL Lymphocytes # 0.5 L (1.0-4.8) k/uL ABG pCO2 31 L (35-45) mmHg ABG pO2 125 H (83-108) mmHg ABG HCO3 20 L (21-25) mmol/L ABG O2 Saturation 98.8 H (94-97) % Chloride 113 H (98-107) mmol/L Carbon Dioxide 18 L (22-30) mmol/L Creatinine 0.44 L (0.52-1.04) mg/dL Glucose 130 H (74-99) mg/dL POC Glucose (mg/dL) (70-110) mg/dL Calcium 6.7 L (8.4-10.2) mg/dL Procalcitonin (0.02-0.09) ng/mL 11/04/22 Range/Units 11:49 WBC (3.8-10.6) k/uL RBC (3.80-5.40) m/uL Hgb (11.4-16.0) gm/dL Hct (34.0-46.0) % RDW (11.5-15.5) % Neutrophils # (1.3-7.7) k/uL Lymphocytes # (1.0-4.8) k/uL ABG pCO2 (35-45) mmHg ABG pO2 (83-108) mmHg ABG HCO3 (21-25) mmol/L ABG O2 Saturation (94-97) % Chloride (98-107) mmol/L Carbon Dioxide (22-30) mmol/L Creatinine (0.52-1.04) mg/dL Glucose (74-99) mg/dL POC Glucose (mg/dL) 120 H (70-110) mg/dL Calcium (8.4-10.2) mg/dL Procalcitonin (0.02-0.09) ng/mL Microbiology - Last 24 Hours (Table) 11/02/22 04:00 Blood Culture - Preliminary Blood 11/02/22 03:45 Blood Culture - Preliminary Blood 11/02/22 08:15 Gram Stain - Final Sputum Sputum Culture - Final Assessment and Plan (1) Aspiration pneumonia Current Visit: Yes Status: Acute Code(s): J69.0 - PNEUMONITIS DUE TO INHALATION OF FOOD AND VOMIT SNOMED Code(s): 389271194 Plan: 1patient was in the hospital with sepsis in this patient who with tachycardia hypotension requiring pressor support patient white count source likely aspiration pneumonia in this patient recent discharge from hospital will need to cover for the resistant gram-negative to be the likely pathogen 2-blood and sputum cultures Are so far negative. 3patient seem to have shown some clinical improvement, we will continue patient on Zosyn and monitor glucose closely Dictation was produced using [employer] dictation software. please excuse any grammatical, word or spelling errors. Time with Patient: Less than 30
[2022-11-05] MEDS: CHLORHEXIDINE GLUCONATE 15 ML CUP MUCOUS MEM SCH ×2 (09:57→20:38)
[2022-11-05] MEDS: PANTOPRAZOLE 40 MG/10 ML VIAL IVP SCH ×2 (09:57→20:38)
[2022-11-05] MEDS: ENOXAPARIN 40 MG/0.4 ML SYRINGE SQ SCH (09:57)
[2022-11-05] MEDS: LEVOTHYROXINE IVP 100 MCG/5 ML VIAL IV SCH (09:58)
[2022-11-05 11:51] LABS: Glucose,Whole Blood 129 mg/dL (70-110)
--- NOTE | 2022-11-05 12:07 | P.PN ---
Subjective Progress Note Date: 11/05/22 Principal diagnosis: Acute hypoxic respiratory failure secondary to aspiration pneumonia with sepsis and septic shock. I am seeing this patient in consultation today 11/02/2022 in the intensive care unit for acute hypoxemic respiratory failure related to aspiration. Patient is a 62-year-old white female with past medical history significant for alcohol abuse, wernickes encephalopathy, hypertension, hypothyroidism, bulimia, and resides at an [facility]. Patient was just recently admitted to the hospital for acute kidney injury and electrolyte abnormalities, and was discharged on October 31 back to her ECF, [facility]. The patient is currently intubated and unable to provide information. Patient was reportedly brought into the emergency room early this morning with intractable nausea and vomiting. Emesis was described as coffee ground. The patient did end up aspirating, and was in some severe respiratory distress. She was intubated by the ER physician with a #7 ET tube. There was reported upper airway edema, and she was a difficult intubation. She was started on high-dose steroids. Initial post-intubation chest x-ray shows increased interstitial markings with patchy right lung opacities. Endotracheal tube was 5 cm above the laila and could be advanced 1-2 cm. The orogastric tube was within the proximal stomach. Current ventilator settings are assist control, respiratory rate 16, tidal 450, FiO2 100%, PEEP of 5. ABGs on these setting show a pO2 greater than 400, pCO2 39, and pH of 7.47. FiO2 was decreased at 40%. Patient is sedated on 30 mg/kg/m of propofol. She still quite anxious and asynchronous with the mechanical ventilator. This will be t itrated for synchrony and appropriate RASS. Peak pressures are 29 and plateau pressure are 15, there is some airway resistance, and presumptive brown gastric fluid within the ET tube and circuit. Blood pressure was reportedly hypotensive in the emergency room. She's received 1 L normal saline bolus in the emergency room, and has a second normal saline bolus infusing currently. BP is currently normotensive. Orogastric tube is currently to low intermittent suction. There is coffee ground gastric output. She was empirically started on Unasyn. Nonenhanced CT of the chest, abdomen, pelvis demonstrated patchy bilateral airspace opacities greater on the right, left pelvic hernia containing bowel loops without evidence of obstruction, moderately distended fluid-filled stomach, and a nonobstructing right renal calculus. CBC on arrival shows a WBC count of 15.3, hemoglobin 10.5, hematocrit 31.8, platelets 278. BMP on arrival shows sodium 132, potassium 3.7, chloride 93, serum bicarb 28, BUN 14, creatinine 0.5, glucose 116. Lactic acid level was 2. A Reich catheter will be inserted. Patient will be monitored in the intensive care unit. Reevaluated today 11/03/2022, patient remains currently intubated. She is on assist control rate of 16 volume 400 FiO2 35% and PEEP of 5 she was earlier on rate of 18 and FiO2 40% and these were changed. ABG showed a pO2 of 138, P CO2 of 35 pH of 7.45 and then setting changes were made as above. Patient dropped her hemoglobin admitted down to 7.5, she did have positive guaiac/gastric secretions hence Protonix was increased to twice a day and no need to transfuse any blood at this point. Platelets are 219. Electrolytes are normal potassium is 3.5 being corrected as per protocol. Renal profile is normal. Chest x-ray showed small tiny right apical pneumothorax, scattered patchy infiltrates right more so than left, with aspiration pneumonia endotracheal tube was noted to be admitted to distal and we recommended following that she will at least 2cm proximally patient remains on broad-spectrum antibiotics, and/Zosyn. Patient remains on GI and DVT prophylaxis, she is requiring a small dose of norepinephrine today at 0.04 mcg/kg/m she is on propofol at 60 mcg/kg/m IV fluids 100 mL/h, and enteral feeding will be started today. Reevaluated, patient remains in the ICU, intubated and mechanically ventilated. She is on assist control rate of 16 tidal volume 400 FiO2 35% PEEP of 5, ABG showed a pO2 of 125 pCO2 31 pH of 7.42. Her propofol is a 65 mcg/kg/m, she is now off norepinephrine, urine output remains marginal, blood pressure is marginal #7 recommending another liter of fluid boluses in the form of 0.9 normal saline. Continue IV fluid at 100 mL per hour, advised to have a CVP monitor on this patient today. In the meantime the patient remains on Zosyn for aspiration pneumonia, chest x-ray continues to show bilateral infiltrates right more so than left. She is receiving Zosyn for aspiration. Neurologically the patient still gets extremely agitated once she is off sedation, hence could not get an adequate trial of weaning off sedation because she is extremely restless agitated, I plan to consider using Precedex in the next 24 hours, and give the patient trials of weaning possibly tomorrow. Depending how well she does with Precedex. WBC count is 11.6 hemoglobin is holding at 7.1 platelets are 250,000. Basic metabolic profile and renal profile are normal; pro calcitonin level is 4.45 Patient was reevaluated today on 11/05/2022, remains in the ICU, intubated and mechanically ventilated. Patient was extremely agitated last night, hence fentanyl was added and she is now on fentanyl at 0.5 mcg/kg/h she remains on propofol down to 45 mg/kg/m she is off norepinephrine, she did receive Lasix last night 40 mg IV push and she diuresed about 2 L. Patient remains on vital HTN at 20/40. Remains on mechanical ventilation with assist control rate of 16 tidal volume 400 FiO2 35% and PEEP of 5 ABG showed a pO2 of 109 pCO2 31 pH of 7.4 CVP today is 6. Chest x-ray is showing improvement in her bilateral bibasilar infiltrates/aspiration pneumonia. WBC count today is 7.6 hemoglobin is 7, basic metabolic profile and renal profile is normal Objective - Vital Signs Vital signs: Vital Signs Temp 98.0 F 11/05/22 09:00 Pulse 79 11/05/22 11:00 Resp 16 11/05/22 11:00 BP 115/68 11/05/22 00:00 Pulse Ox 96 11/05/22 11:00 FiO2 35 11/05/22 09:27 Intake & Output 11/04/22 11/05/22 11/05/22 18:59 06:59 18:59 Intake Total 2431.911 1550.173 543.145 Output Total 1205 1650 140 Balance 1226.911 -99.827 403.145 Weight 63 kg 64.3 kg Intake: IV 2000 1200 400 Piperacillin-Tazobactam 3 100 .375 gm In Sodium Chloride 0.9% 100 ml @ 25 mls/hr IVPB Q8H [facility] Rx#: [id number] Potassium Chloride 20 meq 100 In Water For Injection 1 100ml.bag @ 50 mls/hr IVPB Q2H [facility] Rx#: [id number] Sodium Chloride 0.9% 1, 800 1200 400 000 ml @ 100 mls/hr IV . Q10H [facility] Rx#:[id number] Sodium Chloride 0.9% 1, 1000 000 ml @ 999 mls/hr IV . Q1H1M [facility] Rx#:[id number] Intake, IV Titration 281.911 160.173 33.145 Amount Norepinephrine 4 mg In 27.218 3.145 33.145 Sodium Chloride 0.9% 250 ml @ 0.03 MCG/KG/MIN 5. 444 mls/hr IV .Q24H [facility] Rx#:[id number] propofoL 1,000 mg In 254.693 157.028 Empty Bag 1 bag @ 15 MCG/ KG/MIN 4.286 mls/hr IV . [id number] [facility] Rx#:[id number] Tube Feeding 90 190 80 Other 60 30 Output: Chest Tube Drainage 0 Chest Tube Right Right 0 Pleural/Mediastinal Gastric Drainage 150 Urine 1055 1650 140 Other: Voiding Method Indwelling Catheter Indwelling Catheter ABP, PAP, CO, CI - Last Documented Arterial Blood Pressure 114/51 - Exam Physical Exam: Revealed a 62-year-old female intubated, mechanically, sedated, in no distress. Head: Atraumatic normocephalic HEENT:[Neck is supple.] [No neck masses.] [No thyromegaly.] [No JVD.] Endotracheal tube and orogastric tube are intact Chest: [Symmetrical chest expansion clear bilaterally no rhonchi and no wheezes Cardiac Exam: [Normal S1 and S2, no S3 gallop, no murmur.] Abdomen: [Soft, nontender, no megaly, no rebound, no guarding, normal bowel sounds.] Extremities: [No clubbing, no edema, no cyanosis.] Neurological Exam: Could not assess, on propofol., And fentanyl was added last night Psychiatric: Could not assess. Skin: No rashes. - Labs CBC & Chem 7: 11/05/22 05:00 11/05/22 05:00 Labs: Abnormal Lab Results - Last 24 Hours (Table) 11/04/22 11/04/22 11/05/22 Range/Units 17:51 23:06 05:00 RBC 2.50 L (3.80-5.40) m/uL Hgb 7.0 L (11.4-16.0) gm/dL Hct 21.3 L (34.0-46.0) % RDW 17.2 H (11.5-15.5) % Lymphocytes # 0.6 L (1.0-4.8) k/uL ABG pCO2 (35-45) mmHg ABG pO2 (83-108) mmHg ABG O2 Saturation (94-97) % Chloride (98-107) mmol/L Carbon Dioxide (22-30) mmol/L BUN (7-17) mg/dL Glucose (74-99) mg/dL POC Glucose (mg/dL) 122 H 124 H (70-110) mg/dL Calcium (8.4-10.2) mg/dL AST (14-36) U/L Total Protein (6.3-8.2) g/dL Albumin (3.5-5.0) g/dL 11/05/22 11/05/22 11/05/22 Range/Units 05:00 05:35 11:49 RBC (3.80-5.40) m/uL Hgb (11.4-16.0) gm/dL Hct (34.0-46.0) % RDW (11.5-15.5) % Lymphocytes # (1.0-4.8) k/uL ABG pCO2 31 L (35-45) mmHg ABG pO2 109 H (83-108) mmHg ABG O2 Saturation 98.7 H (94-97) % Chloride 113 H (98-107) mmol/L Carbon Dioxide 19 L (22-30) mmol/L BUN 21 H (7-17) mg/dL Glucose 130 H (74-99) mg/dL POC Glucose (mg/dL) 129 H (70-110) mg/dL Calcium 6.8 L (8.4-10.2) mg/dL AST 13 L (14-36) U/L Total Protein 5.3 L (6.3-8.2) g/dL Albumin 2.5 L (3.5-5.0) g/dL Microbiology - Last 24 Hours (Table) 11/02/22 04:00 Blood Culture - Preliminary Blood 11/02/22 03:45 Blood Culture - Preliminary Blood 11/02/22 08:15 Gram Stain - Final Sputum Sputum Culture - Final Assessment and Plan Assessment: Impression: Acute hypoxemic respiratory failure, related to aspiration pneumonia. Remains intubated with mechanical ventilator. Hypotension with sepsis and septic shock, required norepinephrine , discontinued Leukocytosis, secondary to above, improving. Normocytic anemia, there is coffee-ground gastric fluid coming from OG tube, patient is on Protonix 40 mg IV push twice a day Hypomagnesemia, replaced History of bulimia History of alcoholism and Wernicke's encephalopathy Hypothyroidism Acute aspiration pneumonia Iatrogenic right-sided pneumothorax following right subclavian line placement attempt no evidence of air leak, could consider clamping the tube tomorrow for a couple of hours and repeat chest x-ray and if no pneumothorax, the tube could be removed Recommendation: Continue sedation including propofol and fentanyl Continue enteral feeding tried to reach goal. continue Protonix 40 mg twice a day Continue ventilatory support Continue antibiotics Continue GI and DVT clamp right sided chest tube tomorrow, and removed if no recurrent pneumothorax noted after clamping the tube for a couple of hours Not quite ready for extubation Continue bronchodilators and steroids. Critical care time is over 30 minutes We will continue to follow. Time with Patient: Greater than 30
--- NOTE | 2022-11-05 12:23 | P.PN ---
Subjective Progress Note Date: 11/05/22 patient is a 62-year-old lady with past medical history significant for alcohol use disorder, Wernicke's encephalopathy, hypertension, history of bulimia nervosa, hypothyroidism who was recently discharged from our hospital after being treated for nausea vomiting and pneumonia, was discharged on oral antibiotics. Patient came back to the ER for worsening cough and vomiting. Patient was having productive cough. her fever or chills. No complaint of shortness of breath. No coughing of palpitations. Initial lab work done in the ER showed WBC 15.3, hemoglobin 10.5, platelet count 278, sodium 132, potassium 3.7 BUN 14 magnesium 1.3 Chest x-ray done in the ER showed increased interstitial markings, greater on the right and mildly increased, few patchy opacities in the right lung Patient continued to have increasing nausea and vomiting in the ER, there was concern for patient to protect her airway so patient was intubated in the ER and was transferred to ICU 11/03. Patient seen and examined. WBC 11.5, hemoglobin 7.5, sodium 134, potassium 3.5, BUN 16, creatinine 0.41. Continues to be on vent 11/04. Patient seen and examined. Continues to be intubated. Patient off Levophed. Patient's urine output is minimal 11/05. Patient seen and examined. Labs done this morning showed WBC 7.6, hemoglobin 7, platelet count 236 sodium 138, potassium 3.8,. Currently on propofol, also started on fentanyl pushes REVIEW OF SYSTEMS: Patient currently intubated and sedated PHYSICAL EXAMINATION: GENERAL: The patient is intubated HEENT: Pupils are round and equally reacting to light. EOMI. No scleral icterus. No conjunctival pallor. Normocephalic, atraumatic. No pharyngeal erythema. No thyromegaly. CARDIOVASCULAR: S1 and S2 present. No murmurs, rubs, or gallops. PULMONARY: Coarse breath some bilaterally, bilateral expiratory rhonchi audible. Chest tubes seen ABDOMEN: Soft, nontender, nondistended, normoactive bowel sounds. No palpable organomegaly. MUSCULOSKELETAL: No joint swelling or deformity. EXTREMITIES: No cyanosis, clubbing, or pedal edema. NEUROLOGICAL: Cannot be obtained as Patient is intubated SKIN: No rashes. Assessment and plan Acute hypoxemic respiratory failure Aspiration pneumonia Hypotension and suspected septic shock Leukocytosis Anemia Hypomagnesemia History of bulimia History of alcoholism and Wernicke's encephalopathy Hypothyroidism Iatrogenic right-sided pneumothorax following right subclavian line placement attempt Monitor vital signs Monitor CBC Monitor CMP Strict I's and O's, Continue IV fluids Follow-up blood cultures Follow up on sputum cultures Aggressive bronchopulmonary hygiene Continue Zosyn Continue IV Solu-Medrol Continue chest tube management per pulmonary Continue vent management per critical care ID following labs and medication were reviewed.. Continue same treatment. Continue with symptomatic treatment. Resume home medication. Monitor labs and vitals. DVT and GI prophylaxis. Further recommendations as per clinical course of the patient Dictation was produced using [employer] dictation software. please excuse any grammatical, word or spelling errors. Objective - Vital Signs Vital signs: Vital Signs Temp 98.0 F 11/05/22 09:00 Pulse 61 11/05/22 09:00 Resp 17 11/05/22 09:00 BP 115/68 11/05/22 00:00 Pulse Ox 96 11/05/22 09:00 FiO2 35 11/05/22 09:00 Intake & Output 11/04/22 11/05/22 11/05/22 18:59 06:59 18:59 Intake Total 2431.911 1550.173 Output Total 1205 1650 Balance 1226.911 -99.827 Weight 63 kg 64.3 kg Intake: IV 2000 1200 Piperacillin-Tazobactam 3 100 .375 gm In Sodium Chloride 0.9% 100 ml @ 25 mls/hr IVPB Q8H [facility] Rx#: [id number] Potassium Chloride 20 meq 100 In Water For Injection 1 100ml.bag @ 50 mls/hr IVPB Q2H [facility] Rx#: [id number] Sodium Chloride 0.9% 1, 800 1200 000 ml @ 100 mls/hr IV . Q10H [facility] Rx#:[id number] Sodium Chloride 0.9% 1, 1000 000 ml @ 999 mls/hr IV . Q1H1M [facility] Rx#:[id number] Intake, IV Titration 281.911 160.173 Amount Norepinephrine 4 mg In 27.218 3.145 Sodium Chloride 0.9% 250 ml @ 0.03 MCG/KG/MIN 5. 444 mls/hr IV .Q24H [facility] Rx#:[id number] propofoL 1,000 mg In 254.693 157.028 Empty Bag 1 bag @ 15 MCG/ KG/MIN 4.286 mls/hr IV . [id number] [facility] Rx#:[id number] Tube Feeding 90 190 Other 60 Output: Chest Tube Drainage 0 Chest Tube Right Right 0 Pleural/Mediastinal Gastric Drainage 150 Urine 1055 1650 Other: Voiding Method Indwelling Catheter Indwelling Catheter ABP, PAP, CO, CI - Last Documented Arterial Blood Pressure 113/55 - Labs CBC & Chem 7: 11/05/22 05:00 11/05/22 05:00 Labs: Abnormal Lab Results - Last 24 Hours (Table) 11/04/22 11/04/22 11/04/22 Range/Units 11:49 17:51 23:06 RBC (3.80-5.40) m/uL Hgb (11.4-16.0) gm/dL Hct (34.0-46.0) % RDW (11.5-15.5) % Lymphocytes # (1.0-4.8) k/uL ABG pCO2 (35-45) mmHg ABG pO2 (83-108) mmHg ABG O2 Saturation (94-97) % Chloride (98-107) mmol/L Carbon Dioxide (22-30) mmol/L BUN (7-17) mg/dL Glucose (74-99) mg/dL POC Glucose (mg/dL) 120 H 122 H 124 H (70-110) mg/dL Calcium (8.4-10.2) mg/dL AST (14-36) U/L Total Protein (6.3-8.2) g/dL Albumin (3.5-5.0) g/dL 11/05/22 11/05/22 11/05/22 Range/Units 05:00 05:00 05:35 RBC 2.50 L (3.80-5.40) m/uL Hgb 7.0 L (11.4-16.0) gm/dL Hct 21.3 L (34.0-46.0) % RDW 17.2 H (11.5-15.5) % Lymphocytes # 0.6 L (1.0-4.8) k/uL ABG pCO2 31 L (35-45) mmHg ABG pO2 109 H (83-108) mmHg ABG O2 Saturation 98.7 H (94-97) % Chloride 113 H (98-107) mmol/L Carbon Dioxide 19 L (22-30) mmol/L BUN 21 H (7-17) mg/dL Glucose 130 H (74-99) mg/dL POC Glucose (mg/dL) (70-110) mg/dL Calcium 6.8 L (8.4-10.2) mg/dL AST 13 L (14-36) U/L Total Protein 5.3 L (6.3-8.2) g/dL Albumin 2.5 L (3.5-5.0) g/dL Microbiology - Last 24 Hours (Table) 11/02/22 04:00 Blood Culture - Preliminary Blood 11/02/22 03:45 Blood Culture - Preliminary Blood 11/02/22 08:15 Gram Stain - Final Sputum Sputum Culture - Final
--- NOTE | 2022-11-05 15:56 | P.PN ---
Subjective Progress Note Date: 11/05/22 Principal diagnosis: Aspiration pneumonia Patient is a 62-year-old female with a past medical history negative for hypertension reflux bulimia hypothyroidism recently admitted to hospital for acute kidney injury and electrolyte imbalance and was discharged on 10/31/2022 p atient has been brought back to the hospital within 24 hours with intractable nausea vomiting emesis patient did have acute respiratory distress and evidence of aspiration pneumonia requiring intubation and admission to the ICU on today's evaluation that is 11/05/2022 patient continues to be afebrile, the patient is hemodynamically stable not requiring any pressor support, the patient FiO2 is stable at 35% no significant purulent secretion through the ET patient still for gastric suction no diarrhea has been reported. Patient is slowly waking up Patient white count has normalized to 7.6, hemoglobin 7.0 creatinine 0.58 blood and sputum cultures are negative so far Objective - Vital Signs Vital signs: Vital Signs Temp 97.9 F 11/05/22 12:00 Pulse 88 11/05/22 15:45 Resp 17 11/05/22 15:45 BP 115/68 11/05/22 00:00 Pulse Ox 96 11/05/22 15:00 FiO2 35 11/05/22 15:30 Intake & Output 11/04/22 11/05/22 11/05/22 18:59 06:59 18:59 Intake Total 2431.911 1604.525 4934.145 Output Total 1205 1650 250 Balance 1226.911 -99.827 913.145 Weight 63 kg 64.3 kg Intake: IV 2000 1200 800 Piperacillin-Tazobactam 3 100 100 .375 gm In Sodium Chloride 0.9% 100 ml @ 25 mls/hr IVPB Q8H [facility] Rx#: [id number] Potassium Chloride 20 meq 100 In Water For Injection 1 100ml.bag @ 50 mls/hr IVPB Q2H [facility] Rx#: [id number] Sodium Chloride 0.9% 1, 800 1200 700 000 ml @ 100 mls/hr IV . Q10H [facility] Rx#:[id number] Sodium Chloride 0.9% 1, 1000 000 ml @ 999 mls/hr IV . Q1H1M [facility] Rx#:[id number] Intake, IV Titration 281.911 160.173 133.145 Amount Norepinephrine 4 mg In 27.218 3.145 33.145 Sodium Chloride 0.9% 250 ml @ 0.03 MCG/KG/MIN 5. 444 mls/hr IV .Q24H [facility] Rx#:[id number] propofoL 1,000 mg In 254.693 157.028 100 Empty Bag 1 bag @ 15 MCG/ KG/MIN 4.286 mls/hr IV . [id number] [facility] Rx#:[id number] Tube Feeding 90 190 170 Other 60 60 Output: Chest Tube Drainage 0 Chest Tube Right Right 0 Pleural/Mediastinal Gastric Drainage 150 Urine 1055 1650 250 Other: Voiding Method Indwelling Catheter Indwelling Catheter Indwelling Catheter ABP, PAP, CO, CI - Last Documented Arterial Blood Pressure 130/56 - Exam GENERAL DESCRIPTION: A middle-aged female intubated on the vent RESPIRATORY SYSTEM: Unlabored breathing , decreased breath sounds at bases HEART: S1 S2 regular rate and rhythm , ABDOMEN: Soft , no tenderness EXTREMITIES: No edema feet - Labs CBC & Chem 7: 11/05/22 05:00 11/05/22 05:00 Labs: Abnormal Lab Results - Last 24 Hours (Table) 11/04/22 11/04/22 11/05/22 Range/Units 17:51 23:06 05:00 RBC 2.50 L (3.80-5.40) m/uL Hgb 7.0 L (11.4-16.0) gm/dL Hct 21.3 L (34.0-46.0) % RDW 17.2 H (11.5-15.5) % Lymphocytes # 0.6 L (1.0-4.8) k/uL ABG pCO2 (35-45) mmHg ABG pO2 (83-108) mmHg ABG O2 Saturation (94-97) % Chloride (98-107) mmol/L Carbon Dioxide (22-30) mmol/L BUN (7-17) mg/dL Glucose (74-99) mg/dL POC Glucose (mg/dL) 122 H 124 H (70-110) mg/dL Calcium (8.4-10.2) mg/dL AST (14-36) U/L Total Protein (6.3-8.2) g/dL Albumin (3.5-5.0) g/dL 11/05/22 11/05/22 11/05/22 Range/Units 05:00 05:35 11:49 RBC (3.80-5.40) m/uL Hgb (11.4-16.0) gm/dL Hct (34.0-46.0) % RDW (11.5-15.5) % Lymphocytes # (1.0-4.8) k/uL ABG pCO2 31 L (35-45) mmHg ABG pO2 109 H (83-108) mmHg ABG O2 Saturation 98.7 H (94-97) % Chloride 113 H (98-107) mmol/L Carbon Dioxide 19 L (22-30) mmol/L BUN 21 H (7-17) mg/dL Glucose 130 H (74-99) mg/dL POC Glucose (mg/dL) 129 H (70-110) mg/dL Calcium 6.8 L (8.4-10.2) mg/dL AST 13 L (14-36) U/L Total Protein 5.3 L (6.3-8.2) g/dL Albumin 2.5 L (3.5-5.0) g/dL Microbiology - Last 24 Hours (Table) 11/02/22 04:00 Blood Culture - Preliminary Blood 11/02/22 03:45 Blood Culture - Preliminary Blood Assessment and Plan (1) Aspiration pneumonia Current Visit: Yes Status: Acute Code(s): J69.0 - PNEUMONITIS DUE TO INHALATION OF FOOD AND VOMIT SNOMED Code(s): 224673884 Plan: 1patient was in the hospital with sepsis in this patient who with tachycardia hypotension requiring pressor support patient white count source likely aspiration pneumonia in this patient recent discharge from hospital will need to cover for the resistant gram-negative to be the likely pathogen 2-blood and sputum cultures Are so far negative. 3patient did have some clinical improvement currently being treated with Zosyn to continue and monitor clinical course closely Dictation was produced using [employer] software. please excuse any grammatical, word or spelling errors. Time with Patient: Less than 30
[2022-11-05 17:56] LABS: Glucose,Whole Blood 115 mg/dL (70-110)
[2022-11-05] MEDS: SODIUM CHLORIDE 0.9% 1,000 ML IV SCH ×2 (17:59→20:41)
[2022-11-05] MEDS: SODIUM CHLORIDE 0.9% 80 ML with fentaNYL (PF) 1,000 MCG IV SCH ×2 (20:39)
[2022-11-05 23:29] LABS: Glucose,Whole Blood 126 mg/dL (70-110)
[2022-11-06] MEDS: INSULIN ASPART (NovoLOG) 100 UNIT/ML VIAL SQ SCH ×5 (00:05→20:28)
[2022-11-06] MEDS: methylPREDNISolone SOD SUCCI 125 MG/2 ML VIAL IV SCH ×2 (00:06→05:55)
[2022-11-06] MEDS: IPRATROPIUM-ALBUTEROL 3 ML NEB INHALATION SCH ×6 (00:29→20:48)
[2022-11-06] MEDS: SODIUM CHLORIDE 0.9% 1,000 ML IV SCH ×3 (04:42→20:42)
[2022-11-06 05:31] LABS: Anisocytosis Slight; Basophils % (A) 0 %; Eosinophils % (A) 0 %; HCT 21.8 % (34.0-46.0); HGB 7.3 gm/dL (11.4-16.0); Hypochromasia Slight; Lymphocytes # (A) 0.7 k/uL (1.0-4.8); Lymphocytes % (A) 11 %; MCH 28.6 pg (25.0-35.0); MCHC 33.7 g/dL (31.0-37.0); MCV 84.9 fL (80.0-100.0); Mean Platelet Volume 8.8; Monocytes # (A) 0.3 k/uL (0-1.0); Monocytes % (A) 4 %; Neutrophils # (A) 5.7 k/uL (1.3-7.7); Neutrophils % (A) 84 %; Platelet Count 237 k/uL (150-450); RBC 2.57 m/uL (3.80-5.40); RDW 16.9 % (11.5-15.5); WBC 6.7 k/uL (3.8-10.6)
[2022-11-06 05:41] LABS: ALT 16 U/L (4-34); AST 15 U/L (14-36); African American GFR (CKD) >90 (>60 ml/min/1.73 sqM); Albumin 2.5 g/dL (3.5-5.0); Alkaline Phosphatase 48 U/L (38-126); Anion Gap 5 mmol/L; Blood Urea Nitrogen 25 mg/dL (7-17); Calcium 7.2 mg/dL (8.4-10.2); Carbon Dioxide 20 mmol/L (22-30); Chloride 113 mmol/L (98-107); Glucose 129 mg/dL (74-99); Non-African American GFR(CKD) >90 (>60 ml/min/1.73 sqM); Potassium 4.1 mmol/L (3.5-5.1); Sodium 138 mmol/L (137-145); Total Bilirubin 0.2 mg/dL (0.2-1.3); Total Protein 5.2 g/dL (6.3-8.2)
[2022-11-06] MEDS: PIPERACILLIN-TAZOBACTAM 3.375 GM in SODIUM CHLORIDE 0.9% 100 ML IVPB SCH ×3 (05:55→21:07)
[2022-11-06 06:20] LABS: ABG Base Excess -2.5 mmol/L; ABG HCO3 22 mmol/L (21-25); ABG Oxygen Saturation 98.6 % (94-97); ABG PCO2 34 mmHg (35-45); ABG PH 7.42 (7.35-7.45); ABG PO2 115 mmHg (83-108); ABG TCO2 23 mmol/L (19-24); Allen Test Performed? Yes
[2022-11-06] MEDS: CHLORHEXIDINE GLUCONATE 15 ML CUP MUCOUS MEM SCH (08:34)
[2022-11-06] MEDS: LEVOTHYROXINE IVP 100 MCG/5 ML VIAL IV SCH (08:34)
[2022-11-06] MEDS: ENOXAPARIN 40 MG/0.4 ML SYRINGE SQ SCH (08:34)
[2022-11-06] MEDS: PANTOPRAZOLE 40 MG/10 ML VIAL IVP SCH ×2 (08:34→20:28)
[2022-11-06 09:49] LABS: ABG Base Excess -2.7 mmol/L; ABG HCO3 22 mmol/L (21-25); ABG Oxygen Saturation 96.9 % (94-97); ABG PCO2 33 mmHg (35-45); ABG PH 7.43 (7.35-7.45); ABG PO2 88 mmHg (83-108); ABG TCO2 23 mmol/L (19-24); Allen Test Performed? Yes
--- NOTE | 2022-11-06 10:38 | P.PN ---
Subjective Progress Note Date: 11/06/22 Principal diagnosis: Respiratory failure. Acute hypoxic respiratory failure secondary to aspiration pneumonia with sepsis and septic shock. I am seeing this patient in consultation today 11/02/2022 in the intensive care unit for acute hypoxemic respiratory failure related to aspiration. Patient is a 62-year-old white female with past medical history significant for alcohol ab use, wernickes encephalopathy, hypertension, hypothyroidism, bulimia, and resides at an [facility]. Patient was just recently admitted to the hospital for acute kidney injury and electrolyte abnormalities, and was discharged on October 31 back to her ECF, [facility]. The patient is currently intubated and unable to provide information. Patient was reportedly brought into the emergency room early this morning with intractable nausea and vomiting. Emesis was described as coffee ground. The patient did end up aspirating, and was in some severe respiratory distress. She was intubated by the ER physician with a #7 ET tube. There was reported upper airway edema, and she was a difficult intubation. She was started on high-dose steroids. Initial post-intubation chest x-ray shows increased interstitial markings with patchy right lung opacities. Endotracheal tube was 5 cm above the laila and could be advanced 1-2 cm. The orogastric tube was within the proximal stomach. Current ventilator settings are assist control, respiratory rate 16, tidal 450, FiO2 100%, PEEP of 5. ABGs on these setting show a pO2 greater than 400, pCO2 39, and pH of 7.47. FiO2 was decreased at 40%. Patient is sedated on 30 mg/kg/m of propofol. She still quite anxious and asynchronous with the mechanical ventilator. This will be titrated for synchrony and appropriate RASS. Peak pressures are 29 and plateau pressure are 15, there is some airway resistance, and presumptive brown gastric fluid within the ET tube and circuit. Blood pressure was reportedly hypotensive in the emergency room. She's received 1 L normal saline bolus in the emergency room, and has a second normal saline bolus infusing currently. BP is currently normotensive. Orogastric tube is currently to low intermittent suction. There is coffee ground gastric output. She was empirically started on Unasyn. Nonenhanced CT of the chest, abdomen, pelvis demonstrated patchy bilateral airspace opacities greater on the right, left pelvic hernia containing bowel loops without evidence of obstruction, moderately distended fluid-filled sto mach, and a nonobstructing right renal calculus. CBC on arrival shows a WBC count of 15.3, hemoglobin 10.5, hematocrit 31.8, platelets 278. BMP on arrival shows sodium 132, potassium 3.7, chloride 93, serum bicarb 28, BUN 14, creatinine 0.5, glucose 116. Lactic acid level was 2. A Reich catheter will be inserted. Patient will be monitored in the intensive care unit. Reevaluated today 11/03/2022, patient remains currently intubated. She is on assist control rate of 16 volume 400 FiO2 35% and PEEP of 5 she was earlier on rate of 18 and FiO2 40% and these were changed. ABG showed a pO2 of 138, P CO2 of 35 pH of 7.45 and then setting changes were made as above. Patient dropped her hemoglobin admitted down to 7.5, she did have positive guaiac/gastric secretions hence Protonix was increased to twice a day and no need to transfuse any blood at this point. Platelets are 219. Electrolytes are normal potassium is 3.5 being corrected as per protocol. Renal profile is normal. Chest x-ray showed small tiny right apical pneumothorax, scattered patchy infiltrates right more so than left, with aspiration pneumonia endotracheal tube was noted to be admitted to distal and we recommended following that she will at least 2cm proximally patient remains on broad-spectrum antibiotics, and/Zosyn. Patient remains on GI and DVT prophylaxis, she is requiring a small dose of norepinephrine today at 0.04 mcg/kg/m she is on propofol at 60 mcg/kg/m IV fluids 100 mL/h, and enteral feeding will be started today. Reevaluated, patient remains in the ICU, intubated and mechanically ventilated. She is on assist control rate of 16 tidal volume 400 FiO2 35% PEEP of 5, ABG showed a pO2 of 125 pCO2 31 pH of 7.42. Her propofol is a 65 mcg/kg/m, she is now off norepinephrine, urine output remains marginal, blood pressure is marginal #7 recommending another liter of fluid boluses in the form of 0.9 normal saline. Continue IV fluid at 100 mL per hour, advised to have a CVP monitor on this patient today. In the meantime the patient remains on Zosyn for aspiration pneumonia, chest x-ray continues to show bilateral infiltrates right more so than left. She is receiving Zosyn for aspiration. Neurologically the patient still gets extremely agitated once she is off sedation, hence could not get an adequate trial of weaning off sedation because she is extremely restless agitated, I plan to consider using Precedex in the next 24 hours, and give the patient trials of weaning possibly tomorrow. Depending how well she does with Precedex. WBC count is 11.6 hemoglobin is holding at 7.1 platelets are 250,000. Basic metabolic profile and renal profile are normal; pro calcitonin level is 4.45 Patient was reevaluated today on 11/05/2022, remains in the ICU, intubated and mechanically ventilated. Patient was extremely agitated last night, hence fentanyl was added and she is now on fentanyl at 0.5 mcg/kg/h she remains on propofol down to 45 mg/kg/m she is off norepinephrine, she did receive Lasix last night 40 mg IV push and she diuresed about 2 L. Patient remains on vital HTN at 20/40. Remains on mechanical ventilation with assist control rate of 16 tidal volume 400 FiO2 35% and PEEP of 5 ABG showed a pO2 of 109 pCO2 31 pH of 7.4 CVP today is 6. Chest x-ray is showing improvement in her bilateral bibasilar infiltrates/aspiration pneumonia. WBC count today is 7.6 hemoglobin is 7, basic metabolic profile and renal profile is normal Progress note dated 11/06/2022. This is a 62-year-old female who was admitted with a diagnosis of respiratory failure and aspiration pneumonia. She was admitted back on November 02. She was intubated on the same day. The patient remains on the mechanical ventilator, volume assist control, rate 16, tidal volume 400, FiO2 35%, apply. Arterial blood gases show pO2 of 1:15, pCO2 34, and a pH is 7.42. The patient remains on saline at 100 mL an hour, propofol 60 mcg/kg/m, and fentanyl 0.5 g/kg/h. The patient's also receiving vital high protein, at goal, which is 40 mL an hour. The patient does have a right chest tube in place. White count 6.7, hemoglobin 7.3, hematocrit 21.8, and platelet count 237,000. Sodium 138, potassium 4.1, chlorides 113, CO2 20, BUN 25, and creatinine 0.57. Blood and sputum cultures are currently negative. Chest x-ray shows basilar atelectasis, and a right- sided chest tube. Objective - Vital Signs Vital signs: Vital Signs Temp 98.9 F 11/06/22 10:00 Pulse 101 H 11/06/22 10:00 Resp 24 11/06/22 10:00 BP 115/68 11/05/22 00:00 Pulse Ox 92 L 11/06/22 10:00 FiO2 35 11/06/22 09:00 Intake & Output 11/05/22 11/06/22 11/06/22 18:59 06:59 18:59 Intake Total 6568.676 0816.514 482.917 Output Total 325 499 127 Balance 1981.721 0119.514 355.917 Weight 63.9 kg Intake: IV 1200 1300 300 Piperacillin-Tazobactam 3 100 .375 gm In Sodium Chloride 0.9% 100 ml @ 25 mls/hr IVPB Q8H [facility] Rx#: [id number] Sodium Chloride 0.9% 1, 1100 1300 300 000 ml @ 100 mls/hr IV . Q10H [facility] Rx#:[id number] Intake, IV Titration 181.152 231.514 112.917 Amount Norepinephrine 4 mg In 33.145 Sodium Chloride 0.9% 250 ml @ 0.03 MCG/KG/MIN 5. 444 mls/hr IV .Q24H [facility] Rx#:[id number] Sodium Chloride 0.9% 80 74.917 38.903 ml @ 0.5 MCG/KG/HR 3.15 mls/hr IV .Q24H [facility] with fentaNYL (PF) 1,000 mcg Rx#:[id number] propofoL 1,000 mg In 148.007 156.597 74.014 Empty Bag 1 bag @ 15 MCG/ KG/MIN 4.286 mls/hr IV . [id number] [facility] Rx#:[id number] Tube Feeding 260 450 40 Other 90 30 Output: Urine 325 499 127 Other: Voiding Method Indwelling Catheter Indwelling Catheter ABP, PAP, CO, CI - Last Documented Arterial Blood Pressure 136/63 - Exam No acute distress, sedated, with an orally placed endotracheal tube and NG tube. HEENT examination is grossly unremarkable. Neck supple. Full range of motion. No adenopathy thyromegaly or neck vein distention. Cardiovascular examination reveals regular rhythm rate. S1-S2 normal. No S3 or S4. No discernible murmur noted. Heart rate is 100 bpm. Lungs reveal scattered bilateral rhonchi. No wheezes. No crackles. Breath sounds are equal bilaterally. Saturations are in the mid to high 90s. Abdomen is soft, with bowel sounds. No masses or tenderness. Extremities are intact. No cyanosis clubbing or edema. Skin is without rash or lesion. Neurologic examination cannot be adequately assessed. - Labs CBC & Chem 7: 11/06/22 05:00 11/06/22 05:00 Labs: Abnormal Lab Results - Last 24 Hours (Table) 11/05/22 11/05/22 11/05/22 Range/Units 11:49 17:54 23:27 RBC (3.80-5.40) m/uL Hgb (11.4-16.0) gm/dL Hct (34.0-46.0) % RDW (11.5-15.5) % Lymphocytes # (1.0-4.8) k/uL ABG pCO2 (35-45) mmHg ABG pO2 (83-108) mmHg ABG O2 Saturation (94-97) % Chloride (98-107) mmol/L Carbon Dioxide (22-30) mmol/L BUN (7-17) mg/dL Glucose (74-99) mg/dL POC Glucose (mg/dL) 129 H 115 H 126 H (70-110) mg/dL Calcium (8.4-10.2) mg/dL Total Protein (6.3-8.2) g/dL Albumin (3.5-5.0) g/dL 11/06/22 11/06/22 11/06/22 Range/Units 05:00 05:00 06:16 RBC 2.57 L (3.80-5.40) m/uL Hgb 7.3 L (11.4-16.0) gm/dL Hct 21.8 L (34.0-46.0) % RDW 16.9 H (11.5-15.5) % Lymphocytes # 0.7 L (1.0-4.8) k/uL ABG pCO2 34 L (35-45) mmHg ABG pO2 115 H (83-108) mmHg ABG O2 Saturation 98.6 H (94-97) % Chloride 113 H (98-107) mmol/L Carbon Dioxide 20 L (22-30) mmol/L BUN 25 H (7-17) mg/dL Glucose 129 H (74-99) mg/dL POC Glucose (mg/dL) (70-110) mg/dL Calcium 7.2 L (8.4-10.2) mg/dL Total Protein 5.2 L (6.3-8.2) g/dL Albumin 2.5 L (3.5-5.0) g/dL 11/06/22 Range/Units 09:45 RBC (3.80-5.40) m/uL Hgb (11.4-16.0) gm/dL Hct (34.0-46.0) % RDW (11.5-15.5) % Lymphocytes # (1.0-4.8) k/uL ABG pCO2 33 L (35-45) mmHg ABG pO2 (83-108) mmHg ABG O2 Saturation (94-97) % Chloride (98-107) mmol/L Carbon Dioxide (22-30) mmol/L BUN (7-17) mg/dL Glucose (74-99) mg/dL POC Glucose (mg/dL) (70-110) mg/dL Calcium (8.4-10.2) mg/dL Total Protein (6.3-8.2) g/dL Albumin (3.5-5.0) g/dL Microbiology - Last 24 Hours (Table) 11/02/22 04:00 Blood Culture - Preliminary Blood 11/02/22 03:45 Blood Culture - Preliminary Blood Assessment and Plan Assessment: Acute hypoxemic respiratory failure secondary to aspiration pneumonia, with intubation and mechanical ventilation beginning on 11/02/2022. Hypotension, with sepsis/septic shock, currently off pressors. Normocytic anemia. Leukocytosis. History of bulimia. History of alcoholism and Wernicke's encephalopathy. Hypothyroidism. Acute aspiration pneumonia. Right-sided pneumothorax, following placement of a right subclavian triple-lumen catheter. Plan: Plan dated 11/06/2022. The patient is examined and evaluated, in room 263. The patient remains on the mechanical ventilator. The patient will have a daily interruption of sedation, and a spontaneous breathing trial. Based on the weaning parameters, as well as a cuff leak test, a decision will be made about possible extubation. Labs, x- rays, and medications are all reviewed. Chest x-rays also reviewed. The patient remains on Zosyn, for possible aspiration pneumonia. Additional recommendations and suggestions are forthcoming. Time with Patient: Greater than 30
--- NOTE | 2022-11-06 11:40 | XR ---
EXAMINATION TYPE: XR chest 1V portable DATE OF EXAM: 11/06/2022 COMPARISON: 11/05/2022. HISTORY: Respiratory failure. TECHNIQUE: Single frontal view of the chest is obtained. IMPRESSION: Endotracheal tube and right-sided central catheter are unchanged. NG tube projects below the diaphrag m. There is a right-sided chest tube which is also likely not significantly changed. Subcutaneous air is seen along the right chest wall. The appearance of the heart and lungs are also unchanged. There is a right shoulder arthroplasty.
[2022-11-06 12:06] LABS: Glucose,Whole Blood 117 mg/dL (70-110)
--- NOTE | 2022-11-06 14:46 | P.PN ---
Subjective Progress Note Date: 11/06/22 patient is a 62-year-old lady with past medical history significant for alcohol use disorder, Wernicke's encephalopathy, hypertension, history of bulimia nervosa, hypothyroidism who was recently discharged from our hospital after being treated for nausea vomiting and pneumonia, was discharged on oral antibiotics. Patient came back to the ER for worsening cough and vomiting. Patient was having productive cough. her fever or chills. No complaint of shortness of breath. No coughing of palpitations. Initial lab work done in the ER showed WBC 15.3, hemoglobin 10.5, platelet count 278, sodium 132, potassium 3.7 BUN 14 magnesium 1.3 Chest x-ray done in the ER showed increased interstitial markings, greater on the right and mildly increased, few patchy opacities in the right lung Patient continued to have increasing nausea and vomiting in the ER, there was concern for patient to protect her airway so patient was intubated in the ER and was transferred to ICU 11/03. Patient seen and examined. WBC 11.5, hemoglobin 7.5, sodium 134, potassium 3.5, BUN 16, creatinine 0.41. Continues to be on vent 11/04. Patient seen and examined. Continues to be intubated. Patient off Levophed. Patient's urine output is minimal 11/05. Patient seen and examined. Labs done this morning showed WBC 7.6, hemoglobin 7, platelet count 236 sodium 138, potassium 3.8,. Currently on propofol, also started on fentanyl pushes 11/06. Patient seen and examined. Patient extubated. Currently on nasal cannula oxygen. She is alert REVIEW OF SYSTEMS: Denies any chest pain. Denied any shortness of breath. Denies Any nausea, vomiting abdominal pain PHYSICAL EXAMINATION: GENERAL: The patient is alert HEENT: Pupils are round and equally reacting to light. EOMI. No scleral icterus. No conjunctival pallor. Normocephalic, atraumatic. No pharyngeal erythema. No thyromegaly. CARDIOVASCULAR: S1 and S2 present. No murmurs, rubs, or gallops. PULMONARY: Coarse breath some bilaterally, bilateral expiratory rhonchi audible. Chest tubes seen ABDOMEN: Soft, nontender, nondistended, normoactive bowel sounds. No palpable organomegaly. MUSCULOSKELETAL: No joint swelling or deformity. EXTREMITIES: No cyanosis, clubbing, or pedal edema. NEUROLOGICAL: Alert, moving all extremities. SKIN: No rashes. Assessment and plan Acute hypoxemic respiratory failure Aspiration pneumonia Hypotension and suspected septic shock Leukocytosis Anemia Hypomagnesemia History of bulimia History of alcoholism and Wernicke's encephalopathy Hypothyroidism Iatrogenic right-sided pneumothorax following right subclavian line placement attempt Monitor vital signs Monitor CBC Monitor CMP Strict I's and O's, Continue IV fluids Follow-up blood cultures Follow up on sputum cultures Aggressive bronchopulmonary hygiene Continue Zosyn Continue IV Solu-Medrol Continue chest tube management per pulmonary Critical care following ID following labs and medication were reviewed.. Continue same treatment. Continue with symptomatic treatment. Resume home medication. Monitor labs and vitals. DVT and GI prophylaxis. Further recommendations as per clinical course of the patient Dictation was produced using [employer] dictation software. please excuse any grammatical, word or spelling errors. Objective - Vital Signs Vital signs: Vital Signs Temp 98.7 F 11/06/22 14:00 Pulse 83 11/06/22 14:00 Resp 10 L 11/06/22 14:00 BP 115/68 11/05/22 00:00 Pulse Ox 96 11/06/22 14:00 FiO2 35 11/06/22 09:00 Intake & Output 11/05/22 11/06/22 11/06/22 18:59 06:59 18:59 Intake Total 9763.836 5369.514 894.917 Output Total 325 499 527 Balance 1439.160 8747.514 367.917 Weight 63.9 kg 63.9 kg Intake: IV 1200 1300 712 0.9 Normal Saline- 12 Pressure Bag Piperacillin-Tazobactam 3 100 .375 gm In Sodium Chloride 0.9% 100 ml @ 25 mls/hr IVPB Q8H LIVE Rx#: [id number] Sodium Chloride 0.9% 1, 1100 1300 700 000 ml @ 100 mls/hr IV . Q10H LIVE Rx#:[id number] Intake, IV Titration 181.152 231.514 112.917 Amount Norepinephrine 4 mg In 33.145 Sodium Chloride 0.9% 250 ml @ 0.03 MCG/KG/MIN 5. 444 mls/hr IV .Q24H LIVE Rx#:[id number] Sodium Chloride 0.9% 80 74.917 38.903 ml @ 0.5 MCG/KG/HR 3.15 mls/hr IV .Q24H LIVE with fentaNYL (PF) 1,000 mcg Rx#:[id number] propofoL 1,000 mg In 148.007 156.597 74.014 Empty Bag 1 bag @ 15 MCG/ KG/MIN 4.286 mls/hr IV . [id number] LIVE Rx#:[id number] Tube Feeding 260 450 40 Other 90 30 Output: Urine 325 499 527 Other: Voiding Method Indwelling Catheter Indwelling Catheter Indwelling Catheter ABP, PAP, CO, CI - Last Documented Arterial Blood Pressure 155/63 - Labs CBC & Chem 7: 11/06/22 05:00 11/06/22 05:00 Labs: Abnormal Lab Results - Last 24 Hours (Table) 11/05/22 11/05/22 11/06/22 Range/Units 17:54 23:27 05:00 RBC 2.57 L (3.80-5.40) m/uL Hgb 7.3 L (11.4-16.0) gm/dL Hct 21.8 L (34.0-46.0) % RDW 16.9 H (11.5-15.5) % Lymphocytes # 0.7 L (1.0-4.8) k/uL ABG pCO2 (35-45) mmHg ABG pO2 (83-108) mmHg ABG O2 Saturation (94-97) % Chloride (98-107) mmol/L Carbon Dioxide (22-30) mmol/L BUN (7-17) mg/dL Glucose (74-99) mg/dL POC Glucose (mg/dL) 115 H 126 H (70-110) mg/dL Calcium (8.4-10.2) mg/dL Total Protein (6.3-8.2) g/dL Albumin (3.5-5.0) g/dL 11/06/22 11/06/22 11/06/22 Range/Units 05:00 06:16 09:45 RBC (3.80-5.40) m/uL Hgb (11.4-16.0) gm/dL Hct (34.0-46.0) % RDW (11.5-15.5) % Lymphocytes # (1.0-4.8) k/uL ABG pCO2 34 L 33 L (35-45) mmHg ABG pO2 115 H (83-108) mmHg ABG O2 Saturation 98.6 H (94-97) % Chloride 113 H (98-107) mmol/L Carbon Dioxide 20 L (22-30) mmol/L BUN 25 H (7-17) mg/dL Glucose 129 H (74-99) mg/dL POC Glucose (mg/dL) (70-110) mg/dL Calcium 7.2 L (8.4-10.2) mg/dL Total Protein 5.2 L (6.3-8.2) g/dL Albumin 2.5 L (3.5-5.0) g/dL 11/06/22 Range/Units 12:04 RBC (3.80-5.40) m/uL Hgb (11.4-16.0) gm/dL Hct (34.0-46.0) % RDW (11.5-15.5) % Lymphocytes # (1.0-4.8) k/uL ABG pCO2 (35-45) mmHg ABG pO2 (83-108) mmHg ABG O2 Saturation (94-97) % Chloride (98-107) mmol/L Carbon Dioxide (22-30) mmol/L BUN (7-17) mg/dL Glucose (74-99) mg/dL POC Glucose (mg/dL) 117 H (70-110) mg/dL Calcium (8.4-10.2) mg/dL Total Protein (6.3-8.2) g/dL Albumin (3.5-5.0) g/dL Microbiology - Last 24 Hours (Table) 11/02/22 04:00 Blood Culture - Preliminary Blood 11/02/22 03:45 Blood Culture - Preliminary Blood
[2022-11-06 16:39] LABS: Glucose,Whole Blood 82 mg/dL (70-110)
[2022-11-06 20:23] LABS: Glucose,Whole Blood 70 mg/dL (70-110)
[2022-11-06 21:20] LABS: Glucose,Whole Blood 77 mg/dL (70-110)
[2022-11-07] MEDS ORDERED: IPRATROPIUM-ALBUTEROL 3 ML NEB INHALATION PRN (00:40)
[2022-11-07] MEDS: IPRATROPIUM-ALBUTEROL 3 ML NEB INHALATION SCH ×5 (00:41→21:05)
[2022-11-07 04:59] LABS: Anisocytosis Slight; Basophils % (A) 0 %; Eosinophils % (A) 0 %; HCT 20.9 % (34.0-46.0); HGB 7.2 gm/dL (11.4-16.0); Lymphocytes # (A) 1.2 k/uL (1.0-4.8); Lymphocytes % (A) 14 %; MCH 28.8 pg (25.0-35.0); MCHC 34.3 g/dL (31.0-37.0); MCV 84.1 fL (80.0-100.0); Mean Platelet Volume 9.3; Monocytes # (A) 0.3 k/uL (0-1.0); Monocytes % (A) 4 %; Neutrophils # (A) 7.1 k/uL (1.3-7.7); Neutrophils % (A) 81 %; Platelet Count 239 k/uL (150-450); RBC 2.49 m/uL (3.80-5.40); RDW 17.1 % (11.5-15.5); WBC 8.8 k/uL (3.8-10.6)
[2022-11-07] MEDS: PIPERACILLIN-TAZOBACTAM 3.375 GM in SODIUM CHLORIDE 0.9% 100 ML IVPB SCH ×3 (05:19→21:54)
[2022-11-07 05:26] LABS: ALT 21 U/L (4-34); AST 31 U/L (14-36); African American GFR (CKD) >90 (>60 ml/min/1.73 sqM); Albumin 2.2 g/dL (3.5-5.0); Alkaline Phosphatase 45 U/L (38-126); Anion Gap 4 mmol/L; Blood Urea Nitrogen 13 mg/dL (7-17); Carbon Dioxide 22 mmol/L (22-30); Chloride 110 mmol/L (98-107); Glucose 85 mg/dL (74-99); Non-African American GFR(CKD) >90 (>60 ml/min/1.73 sqM); Potassium 2.9 mmol/L (3.5-5.1); Sodium 136 mmol/L (137-145); Total Bilirubin 0.3 mg/dL (0.2-1.3); Total Protein 4.7 g/dL (6.3-8.2)
[2022-11-07] MEDS: POTASSIUM CHLORIDE 20 MEQ in WATER FOR INJECTION 1 100ML.BAG IVPB SCH ×7 (05:39→23:11)
[2022-11-07 06:39] LABS: Glucose,Whole Blood 90 mg/dL (70-110)
[2022-11-07] MEDS: INSULIN ASPART (NovoLOG) 100 UNIT/ML VIAL SQ SCH ×4 (06:41→20:41)
--- NOTE | 2022-11-07 08:20 | XR ---
EXAMINATION TYPE: XR chest 1V portable DATE OF EXAM: 11/07/2022 6:04 AM COMPARISON: Chest radiographs from 11/06/2022 TECHNIQUE: XR chest 1V portable Frontal view of the chest. CLINICAL INDICATION:Female, 62 years old with history of right pneumothorax; FINDINGS: Lungs/Pleura: There is no evidence of pleural effusion, focal consolidation, or pneumothorax. Bibasi lar atelectasis versus pulmonary edema seen lung bases. Pulmonary vascularity: Unremarkable. Heart/mediastinum: Cardiomediastinal silhouette is unremarkable. Musculoskeletal: No acute osseous pathology. Right shoulder arthroplasty changes. Right central venous catheter with tip terminating in the superior vena cava. Right thoracotomy tube with tip in the upper lung. IMPRESSION: Right thoracotomy tube without evidence for pneumothorax. Bibasilar atelectasis and/or pulmonary edema correlate with serum BNP.
[2022-11-07] MEDS: PANTOPRAZOLE 40 MG/10 ML VIAL IVP SCH ×2 (08:32→20:46)
[2022-11-07] MEDS: LEVOTHYROXINE IVP 100 MCG/5 ML VIAL IV SCH (08:32)
[2022-11-07] MEDS: ENOXAPARIN 40 MG/0.4 ML SYRINGE SQ SCH (08:32)
[2022-11-07] MEDS: SODIUM CHLORIDE 0.9% 1,000 ML IV SCH ×2 (10:31→21:54)
[2022-11-07 11:17] LABS: Glucose,Whole Blood 96 mg/dL (70-110)
--- NOTE | 2022-11-07 11:28 | P.PN ---
Subjective Progress Note Date: 11/07/22 Principal diagnosis: Respiratory failure. Acute hypoxic respiratory failure secondary to aspiration pneumonia with sepsis and septic shock. I am seeing this patient in consultation today 11/02/2022 in the intensive care unit for acute hypoxemic respiratory failure related to aspiration. Patient is a 62-year-old white female with past medical history significant for alcohol ab use, wernickes encephalopathy, hypertension, hypothyroidism, bulimia, and resides at an [facility]. Patient was just recently admitted to the hospital for acute kidney injury and electrolyte abnormalities, and was discharged on October 31 back to her ECF, [facility]. The patient is currently intubated and unable to provide information. Patient was reportedly brought into the emergency room early this morning with intractable nausea and vomiting. Emesis was described as coffee ground. The patient did end up aspirating, and was in some severe respiratory distress. She was intubated by the ER physician with a #7 ET tube. There was reported upper airway edema, and she was a difficult intubation. She was started on high-dose steroids. Initial post-intubation chest x-ray shows increased interstitial markings with patchy right lung opacities. Endotracheal tube was 5 cm above the laila and could be advanced 1-2 cm. The orogastric tube was within the proximal stomach. Current ventilator settings are assist control, respiratory rate 16, tidal 450, FiO2 100%, PEEP of 5. ABGs on these setting show a pO2 greater than 400, pCO2 39, and pH of 7.47. FiO2 was decreased at 40%. Patient is sedated on 30 mg/kg/m of propofol. She still quite anxious and asynchronous with the mechanical ventilator. This will be titrated for synchrony and appropriate RASS. Peak pressures are 29 and plateau pressure are 15, there is some airway resistance, and presumptive brown gastric fluid within the ET tube and circuit. Blood pressure was reportedly hypotensive in the emergency room. She's received 1 L normal saline bolus in the emergency room, and has a second normal saline bolus infusing currently. BP is currently normotensive. Orogastric tube is currently to low intermittent suction. There is coffee ground gastric output. She was empirically started on Unasyn. Nonenhanced CT of the chest, abdomen, pelvis demonstrated patchy bilateral airspace opacities greater on the right, left pelvic hernia containing bowel loops without evidence of obstruction, moderately distended fluid-filled sto mach, and a nonobstructing right renal calculus. CBC on arrival shows a WBC count of 15.3, hemoglobin 10.5, hematocrit 31.8, platelets 278. BMP on arrival shows sodium 132, potassium 3.7, chloride 93, serum bicarb 28, BUN 14, creatinine 0.5, glucose 116. Lactic acid level was 2. A Reich catheter will be inserted. Patient will be monitored in the intensive care unit. Reevaluated today 11/03/2022, patient remains currently intubated. She is on assist control rate of 16 volume 400 FiO2 35% and PEEP of 5 she was earlier on rate of 18 and FiO2 40% and these were changed. ABG showed a pO2 of 138, P CO2 of 35 pH of 7.45 and then setting changes were made as above. Patient dropped her hemoglobin admitted down to 7.5, she did have positive guaiac/gastric secretions hence Protonix was increased to twice a day and no need to transfuse any blood at this point. Platelets are 219. Electrolytes are normal potassium is 3.5 being corrected as per protocol. Renal profile is normal. Chest x-ray showed small tiny right apical pneumothorax, scattered patchy infiltrates right more so than left, with aspiration pneumonia endotracheal tube was noted to be admitted to distal and we recommended following that she will at least 2cm proximally patient remains on broad-spectrum antibiotics, and/Zosyn. Patient remains on GI and DVT prophylaxis, she is requiring a small dose of norepinephrine today at 0.04 mcg/kg/m she is on propofol at 60 mcg/kg/m IV fluids 100 mL/h, and enteral feeding will be started today. Reevaluated, patient remains in the ICU, intubated and mechanically ventilated. She is on assist control rate of 16 tidal volume 400 FiO2 35% PEEP of 5, ABG showed a pO2 of 125 pCO2 31 pH of 7.42. Her propofol is a 65 mcg/kg/m, she is now off norepinephrine, urine output remains marginal, blood pressure is marginal #7 recommending another liter of fluid boluses in the form of 0.9 normal saline. Continue IV fluid at 100 mL per hour, advised to have a CVP monitor on this patient today. In the meantime the patient remains on Zosyn for aspiration pneumonia, chest x-ray continues to show bilateral infiltrates right more so than left. She is receiving Zosyn for aspiration. Neurologically the patient still gets extremely agitated once she is off sedation, hence could not get an adequate trial of weaning off sedation because she is extremely restless agitated, I plan to consider using Precedex in the next 24 hours, and give the patient trials of weaning possibly tomorrow. Depending how well she does with Precedex. WBC count is 11.6 hemoglobin is holding at 7.1 platelets are 250,000. Basic metabolic profile and renal profile are normal; pro calcitonin level is 4.45 Patient was reevaluated today on 11/05/2022, remains in the ICU, intubated and mechanically ventilated. Patient was extremely agitated last night, hence fentanyl was added and she is now on fentanyl at 0.5 mcg/kg/h she remains on propofol down to 45 mg/kg/m she is off norepinephrine, she did receive Lasix last night 40 mg IV push and she diuresed about 2 L. Patient remains on vital HTN at 20/40. Remains on mechanical ventilation with assist control rate of 16 tidal volume 400 FiO2 35% and PEEP of 5 ABG showed a pO2 of 109 pCO2 31 pH of 7.4 CVP today is 6. Chest x-ray is showing improvement in her bilateral bibasilar infiltrates/aspiration pneumonia. WBC count today is 7.6 hemoglobin is 7, basic metabolic profile and renal profile is normal Progress note dated 11/06/2022. This is a 62-year-old female who was admitted with a diagnosis of respiratory failure and aspiration pneumonia. She was admitted back on November 02. She was intubated on the same day. The patient remains on the mechanical ventilator, volume assist control, rate 16, tidal volume 400, FiO2 35%, apply. Arterial blood gases show pO2 of 1:15, pCO2 34, and a pH is 7.42. The patient remains on saline at 100 mL an hour, propofol 60 mcg/kg/m, and fentanyl 0.5 g/kg/h. The patient's also receiving vital high protein, at goal, which is 40 mL an hour. The patient does have a right chest tube in place. White count 6.7, hemoglobin 7.3, hematocrit 21.8, and platelet count 237,000. Sodium 138, potassium 4.1, chlorides 113, CO2 20, BUN 25, and creatinine 0.57. Blood and sputum cultures are currently negative. Chest x-ray shows basilar atelectasis, and a right- sided chest tube. Progress note dated 11/07/2022. 62-year-old female seen today in room 263. She was admitted with a diagnosis of respiratory failure and aspiration pneumonia. She was admitted back on November 02. She was intubated on the same day. Unfortunately, she was successfully extubated yesterday. She is seen today in the same room. Currently, she is on 4 L by nasal cannula. She's getting saline at 100 mL an hour. Her pro- calcitonin level was 4.45. Continues on Zosyn. White count is 8.8, hemoglobin 7.2, hematocrit 20.9, within normal platelet count. Sodium 136, potassium 2.9 chlorides 110, CO2 22, BUN 13, creatinine 0.57. Chest x-ray today, revealed her right chest tube to be in place, without evident pneumothorax. Chest tube was taken off of suction, and placed on waterseal. A repeat chest x-ray will be done. Objective - Vital Signs Vital signs: Vital Signs Temp 100 F H 11/07/22 08:00 Pulse 84 11/07/22 10:00 Resp 24 11/07/22 10:00 BP 124/80 11/07/22 09:00 Pulse Ox 99 11/07/22 10:00 FiO2 4 11/07/22 08:18 Intake & Output 11/06/22 11/07/22 11/07/22 18:59 06:59 18:59 Intake Total 5109.817 0781 524 Output Total 842 1895 470 Balance 506.917 -323 54 Weight 63.9 kg 64.5 kg Intake: IV 1166 1372 224 0.9 Normal Saline- 66 72 24 Pressure Bag Piperacillin-Tazobactam 3 100 .375 gm In Sodium Chloride 0.9% 100 ml @ 25 mls/hr IVPB Q8H LIVE Rx#: [id number] Sodium Chloride 0.9% 1, 1100 1200 200 000 ml @ 100 mls/hr IV . Q10H LIVE Rx#:[id number] Intake, IV Titration 112.917 200 200 Amount Piperacillin-Tazobactam 3 100 .375 gm In Sodium Chloride 0.9% 100 ml @ 25 mls/hr IVPB Q8H LIVE Rx#: [id number] Potassium Chloride 20 meq 100 200 In Water For Injection 1 100ml.bag @ 50 mls/hr IVPB Q2H LIVE Rx#: [id number] Sodium Chloride 0.9% 80 38.903 ml @ 0.5 MCG/KG/HR 3.15 mls/hr IV .Q24H LIVE with fentaNYL (PF) 1,000 mcg Rx#:[id number] propofoL 1,000 mg In 74.014 Empty Bag 1 bag @ 15 MCG/ KG/MIN 4.286 mls/hr IV . [id number] LIVE Rx#:[id number] Oral 100 Tube Feeding 40 Other 30 Output: Chest Tube Drainage 0 0 0 Chest Tube Right Right 0 0 0 Pleural/Mediastinal Urine 842 1895 470 Other: Voiding Method Indwelling Catheter Indwelling Catheter Indwelling Catheter ABP, PAP, CO, CI - Last Documented Arterial Blood Pressure 133/62 - Exam No acute distress, awake and alert, currently on 4 L by nasal cannula. HEENT examination is grossly unremarkable. Neck supple. Full range of motion. No adenopathy thyromegaly or neck vein distention. Cardiovascular examination reveals regular rhythm rate. S1-S2 normal. No S3 or S4. No discernible murmur noted. Heart rate is 84 bpm. Lungs reveal scattered bilateral rhonchi. No wheezes. No crackles. Breath sounds are equal bilaterally. Saturations 99%. Abdomen is soft, with bowel sounds. No masses or tenderness. Extremities are intact. No cyanosis clubbing or edema. Skin is without rash or lesion. Neurologic examination is brief but nonfocal. She has ongoing tongue thrusting. - Labs CBC & Chem 7: 11/07/22 04:30 11/07/22 04:30 Labs: Abnormal Lab Results - Last 24 Hours (Table) 11/06/22 11/07/22 11/07/22 Range/Units 12:04 04:30 04:30 RBC 2.49 L (3.80-5.40) m/uL Hgb 7.2 L (11.4-16.0) gm/dL Hct 20.9 L (34.0-46.0) % RDW 17.1 H (11.5-15.5) % Sodium 136 L (137-145) mmol/L Potassium 2.9 L (3.5-5.1) mmol/L Chloride 110 H (98-107) mmol/L POC Glucose (mg/dL) 117 H (70-110) mg/dL Calcium 7.0 L (8.4-10.2) mg/dL Total Protein 4.7 L (6.3-8.2) g/dL Albumin 2.2 L (3.5-5.0) g/dL Assessment and Plan Assessment: Acute hypoxemic respiratory failure secondary to aspiration pneumonia, with intubation and mechanical ventilation beginning on 11/02/2022, S/P successful extubation on 11/06/2022. Hypotension, with sepsis/septic shock, currently off pressors. Normocytic anemia. Leukocytosis. History of bulimia. History of alcoholism and Wernicke's encephalopathy. Hypothyroidism. Acute aspiration pneumonia. Right-sided pneumothorax, following placement of a right subclavian triple-lumen catheter. Plan: Plan dated 11/06/2022. The patient is examined and evaluated, in room 263. The patient remains on the mechanical ventilator. The patient will have a daily interruption of sedation, and a spontaneous breathing trial. Based on the weaning parameters, as well as a cuff leak test, a decision will be made about possible extubation. Labs, x- rays, and medications are all reviewed. Chest x-rays also reviewed. The patient remains on Zosyn, for possible aspiration pneumonia. Additional recommendations and suggestions are forthcoming. Plan dated 11/07/2022. The patient was successfully extubated yesterday. Weaning parameters, blood gases, etc., were all very reasonable. The patient has done well post extubation. She currently remains on oxygen by nasal cannula at 4 L. She continues on Zosyn. Pro-calcitonin level was elevated. The patient's right- sided chest tube will be taken off of suction, and placed on waterseal. Repeat chest x-ray will be done. If there is no obvious pneumothorax, the chest tube will be discontinued. Additional recommendations and suggestions are forthcoming. Prognosis is certainly guarded. The patient apparently resides at [facility] in [place], [place]. Time with Patient: Greater than 30
--- NOTE | 2022-11-07 11:49 | XR ---
EXAMINATION TYPE: XR chest 1V portable DATE OF EXAM: 11/07/2022 11:25 AM COMPARISON: Chest radiographs from same day TECHNIQUE: XR chest 1V portable Frontal view of the chest. CLINICAL INDICATION:Female, 62 years old with history of 1 hr post chest tube off suction at 10am; FINDINGS: Lungs/Pleura: There is no evidence of pleural effusion, focal consolidation, or pneumothorax. Bibasi lar atelectasis versus pulmonary edema seen lung bases. Pulmonary vascularity: Unremarkable. Heart/mediastinum: Cardiomediastinal silhouette is unremarkable. Musculoskeletal: No acute osseous pathology. Right shoulder arthroplasty changes. Right central venous catheter with tip terminating in the superior vena cava. Right thoracotomy tube with tip in the upper lung. Subcutaneous emphysema has increased on the right chest wall. IMPRESSION: 1. Right thoracotomy tube without evidence for pneumothorax. 2. Right chest wall subcutaneous emphysema has increased. 3. Bibasilar atelectasis and/or pulmonary edema correlate with serum BNP.
--- NOTE | 2022-11-07 14:53 | P.PN ---
Subjective Progress Note Date: 11/06/22 Principal diagnosis: Aspiration pneumonia Patient is a 62-year-old female with a past medical history negative for hypertension reflux bulimia hypothyroidism recently admitted to hospital for acute kidney injury and electrolyte imbalance and was discharged on 10/31/2022 p atient has been brought back to the hospital within 24 hours with intractable nausea vomiting emesis patient did have acute respiratory distress and evidence of aspiration pneumonia requiring intubation and admission to the ICU , patient has been subsequently extubated on 11/06/2022 on today's evaluation that is 11/06/2022 patient remains to be afebrile, the patient is hemodynamically stable not requiring any pressor support, the patient is extubated and is breathing comfortably on 4 L nasal cannula oxygen patient is slightly lethargic and not an adequate historian no vomiting or diarrhea has b een reported Patient white count is 6.7 hemoglobin is 7.3 creatinine 0.57, blood and sputum cultures so far negative Objective - Vital Signs Vital signs: Vital Signs Temp 97.7 F 11/06/22 12:00 Pulse 86 11/06/22 12:00 Resp 16 11/06/22 12:00 BP 115/68 11/05/22 00:00 Pulse Ox 97 11/06/22 12:00 FiO2 35 11/06/22 09:00 Intake & Output 11/05/22 11/06/22 11/06/22 18:59 06:59 18:59 Intake Total 8496.684 0951.514 694.917 Output Total 325 499 327 Balance 5940.537 1161.514 367.917 Weight 63.9 kg 63.9 kg Intake: IV 1200 1300 512 0.9 Normal Saline- 12 Pressure Bag Piperacillin-Tazobactam 3 100 .375 gm In Sodium Chloride 0.9% 100 ml @ 25 mls/hr IVPB Q8H LIVE Rx#: [id number] Sodium Chloride 0.9% 1, 1100 1300 500 000 ml @ 100 mls/hr IV . Q10H LIVE Rx#:[id number] Intake, IV Titration 181.152 231.514 112.917 Amount Norepinephrine 4 mg In 33.145 Sodium Chloride 0.9% 250 ml @ 0.03 MCG/KG/MIN 5. 444 mls/hr IV .Q24H LIVE Rx#:[id number] Sodium Chloride 0.9% 80 74.917 38.903 ml @ 0.5 MCG/KG/HR 3.15 mls/hr IV .Q24H LIVE with fentaNYL (PF) 1,000 mcg Rx#:[id number] propofoL 1,000 mg In 148.007 156.597 74.014 Empty Bag 1 bag @ 15 MCG/ KG/MIN 4.286 mls/hr IV . [id number] LIVE Rx#:[id number] Tube Feeding 260 450 40 Other 90 30 Output: Urine 325 499 327 Other: Voiding Method Indwelling Catheter Indwelling Catheter Indwelling Catheter ABP, PAP, CO, CI - Last Documented Arterial Blood Pressure 161/68 - Exam GENERAL DESCRIPTION: A middle-aged female lying in bed in no distress RESPIRATORY SYSTEM: Unlabored breathing , decreased breath sounds at bases HEART: S1 S2 regular rate and rhythm , ABDOMEN: Soft , no tenderness EXTREMITIES: No edema feet - Labs CBC & Chem 7: 11/07/22 04:30 11/07/22 04:30 Labs: Abnormal Lab Results - Last 24 Hours (Table) 11/05/22 11/05/22 11/06/22 Range/Units 17:54 23:27 05:00 RBC 2.57 L (3.80-5.40) m/uL Hgb 7.3 L (11.4-16.0) gm/dL Hct 21.8 L (34.0-46.0) % RDW 16.9 H (11.5-15.5) % Lymphocytes # 0.7 L (1.0-4.8) k/uL ABG pCO2 (35-45) mmHg ABG pO2 (83-108) mmHg ABG O2 Saturation (94-97) % Chloride (98-107) mmol/L Carbon Dioxide (22-30) mmol/L BUN (7-17) mg/dL Glucose (74-99) mg/dL POC Glucose (mg/dL) 115 H 126 H (70-110) mg/dL Calcium (8.4-10.2) mg/dL Total Protein (6.3-8.2) g/dL Albumin (3.5-5.0) g/dL 11/06/22 11/06/22 11/06/22 Range/Units 05:00 06:16 09:45 RBC (3.80-5.40) m/uL Hgb (11.4-16.0) gm/dL Hct (34.0-46.0) % RDW (11.5-15.5) % Lymphocytes # (1.0-4.8) k/uL ABG pCO2 34 L 33 L (35-45) mmHg ABG pO2 115 H (83-108) mmHg ABG O2 Saturation 98.6 H (94-97) % Chloride 113 H (98-107) mmol/L Carbon Dioxide 20 L (22-30) mmol/L BUN 25 H (7-17) mg/dL Glucose 129 H (74-99) mg/dL POC Glucose (mg/dL) (70-110) mg/dL Calcium 7.2 L (8.4-10.2) mg/dL Total Protein 5.2 L (6.3-8.2) g/dL Albumin 2.5 L (3.5-5.0) g/dL 11/06/22 Range/Units 12:04 RBC (3.80-5.40) m/uL Hgb (11.4-16.0) gm/dL Hct (34.0-46.0) % RDW (11.5-15.5) % Lymphocytes # (1.0-4.8) k/uL ABG pCO2 (35-45) mmHg ABG pO2 (83-108) mmHg ABG O2 Saturation (94-97) % Chloride (98-107) mmol/L Carbon Dioxide (22-30) mmol/L BUN (7-17) mg/dL Glucose (74-99) mg/dL POC Glucose (mg/dL) 117 H (70-110) mg/dL Calcium (8.4-10.2) mg/dL Total Protein (6.3-8.2) g/dL Albumin (3.5-5.0) g/dL Microbiology - Last 24 Hours (Table) 11/02/22 04:00 Blood Culture - Preliminary Blood 11/02/22 03:45 Blood Culture - Preliminary Blood Assessment and Plan (1) Aspiration pneumonia Current Visit: Yes Status: Acute Code(s): J69.0 - PNEUMONITIS DUE TO INHALATION OF FOOD AND VOMIT SNOMED Code(s): 356681905 Plan: 1patient was in the hospital with sepsis in this patient who with tachycardia hypotension requiring pressor support patient white count source likely aspiration pneumonia in this patient recent discharge from hospital will need to cover for the resistant gram-negative to be the likely pathogen 2-blood and sputum cultures Are so far negative. 3patient has shown clinical improvement and the patient has been asked to be, we will continue the patient on Zosyn and monitor clinical course closely Dictation was produced using [employer] dictation software. please excuse any grammatical, word or spelling errors. Time with Patient: Less than 30
--- NOTE | 2022-11-07 14:54 | P.PN ---
Subjective Progress Note Date: 11/07/22 Principal diagnosis: Aspiration pneumonia Patient is a 62-year-old female with a past medical history negative for hypertension reflux bulimia hypothyroidism recently admitted to hospital for acute kidney injury and electrolyte imbalance and was discharged on 10/31/2022 p atient has been brought back to the hospital within 24 hours with intractable nausea vomiting emesis patient did have acute respiratory distress and evidence of aspiration pneumonia requiring intubation and admission to the ICU , patient has been subsequently extubated on 11/06/2022 on today's evaluation that is 11/07/2022 patient continues to be afebrile, the patient is hemodynamically stable not requiring any pressor support, the patient is breathing comfortably on 4 L nasal cannula oxygen patient is slightly more awake and alert today she did have a congested cough not bringing up any sputum denies any nausea no vomiting no abdominal pain or diarrhea Patient white count is 8.8, hemoglobin is 7.2, creatinine 0.57, blood and sputum culture had been negative so far Objective - Vital Signs Vital signs: Vital Signs Temp 98.1 F 11/07/22 12:00 Pulse 94 11/07/22 12:12 Resp 22 11/07/22 12:00 BP 124/80 11/07/22 11:00 Pulse Ox 94 L 11/07/22 12:00 FiO2 4 11/07/22 08:18 Intake & Output 11/06/22 11/07/22 11/07/22 18:59 06:59 18:59 Intake Total 6378.321 1132 836 Output Total 842 1895 720 Balance 506.917 -323 116 Weight 63.9 kg 64.5 kg Intake: IV 1166 1372 436 0.9 Normal Saline- 66 72 36 Pressure Bag Piperacillin-Tazobactam 3 100 .375 gm In Sodium Chloride 0.9% 100 ml @ 25 mls/hr IVPB Q8H LIVE Rx#: [id number] Sodium Chloride 0.9% 1, 1100 1200 400 000 ml @ 100 mls/hr IV . Q10H LIVE Rx#:[id number] Intake, IV Titration 112.917 200 200 Amount Piperacillin-Tazobactam 3 100 .375 gm In Sodium Chloride 0.9% 100 ml @ 25 mls/hr IVPB Q8H LIVE Rx#: [id number] Potassium Chloride 20 meq 100 200 In Water For Injection 1 100ml.bag @ 50 mls/hr IVPB Q2H LIVE Rx#: [id number] Sodium Chloride 0.9% 80 38.903 ml @ 0.5 MCG/KG/HR 3.15 mls/hr IV .Q24H LIVE with fentaNYL (PF) 1,000 mcg Rx#:[id number] propofoL 1,000 mg In 74.014 Empty Bag 1 bag @ 15 MCG/ KG/MIN 4.286 mls/hr IV . [id number] LIVE Rx#:[id number] Oral 200 Tube Feeding 40 Other 30 Output: Chest Tube Drainage 0 0 0 Chest Tube Right Right 0 0 0 Pleural/Mediastinal Urine 842 1895 720 Other: Voiding Method Indwelling Catheter Indwelling Catheter Indwelling Catheter ABP, PAP, CO, CI - Last Documented Arterial Blood Pressure 146/63 - Exam GENERAL DESCRIPTION: A middle-aged female lying in bed in no distress RESPIRATORY SYSTEM: Unlabored breathing , decreased breath sounds at bases HEART: S1 S2 regular rate and rhythm , ABDOMEN: Soft , no tenderness EXTREMITIES: No edema feet - Labs CBC & Chem 7: 11/07/22 04:30 11/07/22 04:30 Labs: Abnormal Lab Results - Last 24 Hours (Table) 11/07/22 11/07/22 Range/Units 04:30 04:30 RBC 2.49 L (3.80-5.40) m/uL Hgb 7.2 L (11.4-16.0) gm/dL Hct 20.9 L (34.0-46.0) % RDW 17.1 H (11.5-15.5) % Sodium 136 L (137-145) mmol/L Potassium 2.9 L (3.5-5.1) mmol/L Chloride 110 H (98-107) mmol/L Calcium 7.0 L (8.4-10.2) mg/dL Total Protein 4.7 L (6.3-8.2) g/dL Albumin 2.2 L (3.5-5.0) g/dL Assessment and Plan (1) Aspiration pneumonia Current Visit: Yes Status: Acute Code(s): J69.0 - PNEUMONITIS DUE TO INHALATION OF FOOD AND VOMIT SNOMED Code(s): 533504608 Plan: 1patient was in the hospital with sepsis in this patient who with tachycardia hypotension requiring pressor support patient white count source likely aspiration pneumonia in this patient recent discharge from hospital will need to cover for the resistant gram-negative to be the likely pathogen 2-blood and sputum cultures Are so far negative. 3patient has shown clinical improvement and the patient has been extubated, we will continue the patient on Zosyn and transitioned to oral antibiotics once her oral intakes improve Dictation was produced using [employer] dictation software. please excuse any grammatical, word or spelling errors. Time with Patient: Less than 30
[2022-11-07 16:12] LABS: Glucose,Whole Blood 103 mg/dL (70-110)
--- NOTE | 2022-11-07 16:27 | P.PN ---
Subjective Progress Note Date: 11/07/22 patient is a 62-year-old lady with past medical history significant for alcohol use disorder, Wernicke's encephalopathy, hypertension, history of bulimia nervosa, hypothyroidism who was recently discharged from our hospital after being treated for nausea vomiting and pneumonia, was discharged on oral antibiotics. Patient came back to the ER for worsening cough and vomiting. Patient was having productive cough. her fever or chills. No complaint of shortness of breath. No coughing of palpitations. Initial lab work done in the ER showed WBC 15.3, hemoglobin 10.5, platelet count 278, sodium 132, potassium 3.7 BUN 14 magnesium 1.3 Chest x-ray done in the ER showed increased interstitial markings, greater on the right and mildly increased, few patchy opacities in the right lung Patient continued to have increasing nausea and vomiting in the ER, there was concern for patient to protect her airway so patient was intubated in the ER and was transferred to ICU 11/03. Patient seen and examined. WBC 11.5, hemoglobin 7.5, sodium 134, potassium 3.5, BUN 16, creatinine 0.41. Continues to be on vent 11/04. Patient seen and examined. Continues to be intubated. Patient off Levophed. Patient's urine output is minimal 11/05. Patient seen and examined. Labs done this morning showed WBC 7.6, hemoglobin 7, platelet count 236 sodium 138, potassium 3.8,. Currently on propofol, also started on fentanyl pushes 11/06. Patient seen and examined. Patient extubated. Currently on nasal cannula oxygen. She is alert 11/07. Patient seen and examined. No acute issues overnight. Potassium this morning is 2.5, replacement ordered. REVIEW OF SYSTEMS: Denies any chest pain. Denied any shortness of breath. Denies Any nausea, vomiting abdominal pain PHYSICAL EXAMINATION: GENERAL: The patient is alert HEENT: Pupils are round and equally reacting to light. EOMI. No scleral icterus. No conjunctival pallor. Normocephalic, atraumatic. No pharyngeal erythema. No thyromegaly. CARDIOVASCULAR: S1 and S2 present. No murmurs, rubs, or gallops. PULMONARY: Coarse breath some bilaterally, bilateral expiratory rhonchi audible. Chest tube seen ABDOMEN: Soft, nontender, nondistended, normoactive bowel sounds. No palpable organomegaly. MUSCULOSKELETAL: No joint swelling or deformity. EXTREMITIES: No cyanosis, clubbing, or pedal edema. NEUROLOGICAL: Alert, moving all extremities. SKIN: No rashes. Assessment and plan Acute hypoxemic respiratory failure Aspiration pneumonia Hypotension and suspected septic shock Leukocytosis Anemia Hypomagnesemia History of bulimia History of alcoholism and Wernicke's encephalopathy Hypothyroidism Iatrogenic right-sided pneumothorax following right subclavian line placement attempt Monitor vital signs Monitor CBC Monitor CMP Strict I's and O's, Continue IV fluids Follow-up blood cultures Follow up on sputum cultures Aggressive bronchopulmonary hygiene Continue Zosyn Continue chest tube management per pulmonary Critical care following ID following labs and medication were reviewed.. Continue same treatment. Continue with sym ptomatic treatment. Resume home medication. Monitor labs and vitals. DVT and GI prophylaxis. Further recommendations as per clinical course of the patient Dictation was produced using [employer] dictation software. please excuse any grammatical, word or spelling errors. Objective - Vital Signs Vital signs: Vital Signs Temp 99 F 11/07/22 16:00 Pulse 100 11/07/22 16:07 Resp 13 11/07/22 16:00 BP 124/80 11/07/22 09:00 Pulse Ox 96 11/07/22 16:00 FiO2 4 11/07/22 08:18 Intake & Output 11/06/22 11/07/22 11/07/22 18:59 06:59 18:59 Intake Total 6965.164 4189 1360 Output Total 842 1895 1215 Balance 506.917 -323 145 Weight 63.9 kg 64.5 kg Intake: IV 1166 1372 960 0.9 Normal Saline- 66 72 60 Pressure Bag Piperacillin-Tazobactam 3 100 100 .375 gm In Sodium Chloride 0.9% 100 ml @ 25 mls/hr IVPB Q8H LIVE Rx#: [id number] Sodium Chloride 0.9% 1, 1100 1200 800 000 ml @ 100 mls/hr IV . Q10H LIVE Rx#:[id number] Intake, IV Titration 112.917 200 200 Amount Piperacillin-Tazobactam 3 100 .375 gm In Sodium Chloride 0.9% 100 ml @ 25 mls/hr IVPB Q8H LIVE Rx#: [id number] Potassium Chloride 20 meq 100 200 In Water For Injection 1 100ml.bag @ 50 mls/hr IVPB Q2H LIVE Rx#: [id number] Sodium Chloride 0.9% 80 38.903 ml @ 0.5 MCG/KG/HR 3.15 mls/hr IV .Q24H LIVE with fentaNYL (PF) 1,000 mcg Rx#:[id number] propofoL 1,000 mg In 74.014 Empty Bag 1 bag @ 15 MCG/ KG/MIN 4.286 mls/hr IV . [id number] LIVE Rx#:[id number] Oral 200 Tube Feeding 40 Other 30 Output: Chest Tube Drainage 0 0 0 Chest Tube Right Right 0 0 0 Pleural/Mediastinal Urine 842 1895 1215 Other: Voiding Method Indwelling Catheter Indwelling Catheter Indwelling Catheter ABP, PAP, CO, CI - Last Documented Arterial Blood Pressure 142/59 - Labs CBC & Chem 7: 11/07/22 04:30 11/07/22 04:30 Labs: Abnormal Lab Results - Last 24 Hours (Table) 11/07/22 11/07/22 Range/Units 04:30 04:30 RBC 2.49 L (3.80-5.40) m/uL Hgb 7.2 L (11.4-16.0) gm/dL Hct 20.9 L (34.0-46.0) % RDW 17.1 H (11.5-15.5) % Sodium 136 L (137-145) mmol/L Potassium 2.9 L (3.5-5.1) mmol/L Chloride 110 H (98-107) mmol/L Calcium 7.0 L (8.4-10.2) mg/dL Total Protein 4.7 L (6.3-8.2) g/dL Albumin 2.2 L (3.5-5.0) g/dL Microbiology - Last 24 Hours (Table) 11/02/22 04:00 Blood Culture - Final Blood 11/02/22 03:45 Blood Culture - Final Blood
[2022-11-07 20:29] LABS: Glucose,Whole Blood 89 mg/dL (70-110)
[2022-11-07] MEDS: traZODone HCL 50 MG TAB PO SCH (22:40)
[2022-11-08] MEDS ORDERED: ONDANSETRON 4 MG/2 ML VIAL IVP PRN (00:10)
[2022-11-08 04:27] LABS: Anisocytosis Slight; Basophils % (A) 0 %; Eosinophils # (A) 0.1 k/uL (0-0.7); Eosinophils % (A) 1 %; HCT 22.3 % (34.0-46.0); HGB 7.5 gm/dL (11.4-16.0); Lymphocytes # (A) 0.8 k/uL (1.0-4.8); Lymphocytes % (A) 9 %; MCH 27.7 pg (25.0-35.0); MCHC 33.7 g/dL (31.0-37.0); MCV 82.4 fL (80.0-100.0); Mean Platelet Volume 8.7; Monocytes # (A) 0.4 k/uL (0-1.0); Monocytes % (A) 4 %; Neutrophils # (A) 7.8 k/uL (1.3-7.7); Neutrophils % (A) 85 %; Platelet Count 237 k/uL (150-450); RBC 2.71 m/uL (3.80-5.40); RDW 16.9 % (11.5-15.5); WBC 9.2 k/uL (3.8-10.6)
[2022-11-08 04:37] LABS: African American GFR (CKD) >90 (>60 ml/min/1.73 sqM); Anion Gap 4 mmol/L; Blood Urea Nitrogen 6 mg/dL (7-17); Calcium 7.2 mg/dL (8.4-10.2); Carbon Dioxide 22 mmol/L (22-30); Chloride 102 mmol/L (98-107); Glucose 90 mg/dL (74-99); Non-African American GFR(CKD) >90 (>60 ml/min/1.73 sqM); Potassium 4.1 mmol/L (3.5-5.1); Sodium 128 mmol/L (137-145)
[2022-11-08 06:40] LABS: Glucose,Whole Blood 131 mg/dL (70-110)
[2022-11-08] MEDS: INSULIN ASPART (NovoLOG) 100 UNIT/ML VIAL SQ SCH ×4 (06:40→20:07)
[2022-11-08] MEDS: PIPERACILLIN-TAZOBACTAM 3.375 GM in SODIUM CHLORIDE 0.9% 100 ML IVPB SCH ×3 (06:56→21:53)
--- NOTE | 2022-11-08 08:20 | XR ---
EXAMINATION TYPE: XR chest 1V portable DATE OF EXAM: 11/08/2022 HISTORY: Follow-up pneumothorax COMPARISON: 11/07/2022 TECHNIQUE: Single view of the chest is submitted. FINDINGS: There is a right apical 10% pneumothorax noted with apical pleural distance of 1.2 cm. Right-sided ch est tube is unchanged in position. Subcutaneous air along the right chest wall is unchanged. Coarse basilar markings persist. The heart is stable. Hilar and mediastinal structures are within normal limits. Degenerative changes are seen of the dorsal spine. IMPRESSION: 1. An approximate 10% right-sided pneumothorax is noted.
[2022-11-08] MEDS: IPRATROPIUM-ALBUTEROL 3 ML NEB INHALATION SCH ×4 (08:43→20:56)
[2022-11-08] MEDS: ENOXAPARIN 40 MG/0.4 ML SYRINGE SQ SCH (09:15)
[2022-11-08] MEDS: LEVOTHYROXINE IVP 100 MCG/5 ML VIAL IV SCH (09:15)
[2022-11-08] MEDS: PANTOPRAZOLE 40 MG/10 ML VIAL IVP SCH ×2 (09:17→20:35)
[2022-11-08 09:24] LABS: African American GFR (CKD) >90 (>60 ml/min/1.73 sqM); Anion Gap 4 mmol/L; Carbon Dioxide 24 mmol/L (22-30); Chloride 101 mmol/L (98-107); Glucose 99 mg/dL (74-99); Non-African American GFR(CKD) >90 (>60 ml/min/1.73 sqM); Potassium 3.7 mmol/L (3.5-5.1); Sodium 129 mmol/L (137-145)
[2022-11-08 09:26] LABS: Blood Urea Nitrogen 5 mg/dL (7-17); Calcium 7.1 mg/dL (8.4-10.2)
[2022-11-08] MEDS ORDERED: Potassium Replacement Protocol 1 EACH MISC MISCELLANE PRN (09:44)
[2022-11-08] MEDS ORDERED: POTASSIUM BICARBONATE/CIT AC 20 MEQ TABLET.EFF NG-TUBE SCH (10:00)
--- NOTE | 2022-11-08 10:06 | XR ---
EXAMINATION TYPE: XR chest 1V portable DATE OF EXAM: 11/08/2022 HISTORY: Follow-up pneumothorax COMPARISON: 11/08/2022 TECHNIQUE: Single view of the chest is submitted. FINDINGS: Right-sided chest tube has been removed. Stable right apical 10% pneumothorax with apical pleural dis tance of 1.3 cm versus 1.2 cm previously. Strandy basilar densities likely reflect areas of atelectasis. Right-sided central venous line unchan ged in position. The heart is stable. Hilar and mediastinal structures are within normal limits. Degenerative changes are seen of the dorsal spine. IMPRESSION: 1. Approximate right apical 10% pneumothorax. Removal right-sided chest tube.
--- NOTE | 2022-11-08 10:33 | P.PN ---
Subjective Progress Note Date: 11/08/22 Principal diagnosis: Respiratory failure. Acute hypoxic respiratory failure secondary to aspiration pneumonia with sepsis and septic shock. I am seeing this patient in consultation today 11/02/2022 in the intensive care unit for acute hypoxemic respiratory failure related to aspiration. Patient is a 62-year-old white female with past medical history significant for alcohol ab use, wernickes encephalopathy, hypertension, hypothyroidism, bulimia, and resides at an [facility]. Patient was just recently admitted to the hospital for acute kidney injury and electrolyte abnormalities, and was discharged on October 31 back to her ECF, [facility]. The patient is currently intubated and unable to provide information. Patient was reportedly brought into the emergency room early this morning with intractable nausea and vomiting. Emesis was described as coffee ground. The patient did end up aspirating, and was in some severe respiratory distress. She was intubated by the ER physician with a #7 ET tube. There was reported upper airway edema, and she was a difficult intubation. She was started on high-dose steroids. Initial post-intubation chest x-ray shows increased interstitial markings with patchy right lung opacities. Endotracheal tube was 5 cm above the laila and could be advanced 1-2 cm. The orogastric tube was within the proximal stomach. Current ventilator settings are assist control, respiratory rate 16, tidal 450, FiO2 100%, PEEP of 5. ABGs on these setting show a pO2 greater than 400, pCO2 39, and pH of 7.47. FiO2 was decreased at 40%. Patient is sedated on 30 mg/kg/m of propofol. She still quite anxious and asynchronous with the mechanical ventilator. This will be titrated for synchrony and appropriate RASS. Peak pressures are 29 and plateau pressure are 15, there is some airway resistance, and presumptive brown gastric fluid within the ET tube and circuit. Blood pressure was reportedly hypotensive in the emergency room. She's received 1 L normal saline bolus in the emergency room, and has a second normal saline bolus infusing currently. BP is currently normotensive. Orogastric tube is currently to low intermittent suction. There is coffee ground gastric output. She was empirically started on Unasyn. Nonenhanced CT of the chest, abdomen, pelvis demonstrated patchy bilateral airspace opacities greater on the right, left pelvic hernia containing bowel loops without evidence of obstruction, moderately distended fluid-filled sto mach, and a nonobstructing right renal calculus. CBC on arrival shows a WBC count of 15.3, hemoglobin 10.5, hematocrit 31.8, platelets 278. BMP on arrival shows sodium 132, potassium 3.7, chloride 93, serum bicarb 28, BUN 14, creatinine 0.5, glucose 116. Lactic acid level was 2. A Reich catheter will be inserted. Patient will be monitored in the intensive care unit. Reevaluated today 11/03/2022, patient remains currently intubated. She is on assist control rate of 16 volume 400 FiO2 35% and PEEP of 5 she was earlier on rate of 18 and FiO2 40% and these were changed. ABG showed a pO2 of 138, P CO2 of 35 pH of 7.45 and then setting changes were made as above. Patient dropped her hemoglobin admitted down to 7.5, she did have positive guaiac/gastric secretions hence Protonix was increased to twice a day and no need to transfuse any blood at this point. Platelets are 219. Electrolytes are normal potassium is 3.5 being corrected as per protocol. Renal profile is normal. Chest x-ray showed small tiny right apical pneumothorax, scattered patchy infiltrates right more so than left, with aspiration pneumonia endotracheal tube was noted to be admitted to distal and we recommended following that she will at least 2cm proximally patient remains on broad-spectrum antibiotics, and/Zosyn. Patient remains on GI and DVT prophylaxis, she is requiring a small dose of norepinephrine today at 0.04 mcg/kg/m she is on propofol at 60 mcg/kg/m IV fluids 100 mL/h, and enteral feeding will be started today. Reevaluated, patient remains in the ICU, intubated and mechanically ventilated. She is on assist control rate of 16 tidal volume 400 FiO2 35% PEEP of 5, ABG showed a pO2 of 125 pCO2 31 pH of 7.42. Her propofol is a 65 mcg/kg/m, she is now off norepinephrine, urine output remains marginal, blood pressure is marginal #7 recommending another liter of fluid boluses in the form of 0.9 normal saline. Continue IV fluid at 100 mL per hour, advised to have a CVP monitor on this patient today. In the meantime the patient remains on Zosyn for aspiration pneumonia, chest x-ray continues to show bilateral infiltrates right more so than left. She is receiving Zosyn for aspiration. Neurologically the patient still gets extremely agitated once she is off sedation, hence could not get an adequate trial of weaning off sedation because she is extremely restless agitated, I plan to consider using Precedex in the next 24 hours, and give the patient trials of weaning possibly tomorrow. Depending how well she does with Precedex. WBC count is 11.6 hemoglobin is holding at 7.1 platelets are 250,000. Basic metabolic profile and renal profile are normal; pro calcitonin level is 4.45 Patient was reevaluated today on 11/05/2022, remains in the ICU, intubated and mechanically ventilated. Patient was extremely agitated last night, hence fentanyl was added and she is now on fentanyl at 0.5 mcg/kg/h she remains on propofol down to 45 mg/kg/m she is off norepinephrine, she did receive Lasix last night 40 mg IV push and she diuresed about 2 L. Patient remains on vital HTN at 20/40. Remains on mechanical ventilation with assist control rate of 16 tidal volume 400 FiO2 35% and PEEP of 5 ABG showed a pO2 of 109 pCO2 31 pH of 7.4 CVP today is 6. Chest x-ray is showing improvement in her bilateral bibasilar infiltrates/aspiration pneumonia. WBC count today is 7.6 hemoglobin is 7, basic metabolic profile and renal profile is normal Progress note dated 11/06/2022. This is a 62-year-old female who was admitted with a diagnosis of respiratory failure and aspiration pneumonia. She was admitted back on November 02. She was intubated on the same day. The patient remains on the mechanical ventilator, volume assist control, rate 16, tidal volume 400, FiO2 35%, apply. Arterial blood gases show pO2 of 1:15, pCO2 34, and a pH is 7.42. The patient remains on saline at 100 mL an hour, propofol 60 mcg/kg/m, and fentanyl 0.5 g/kg/h. The patient's also receiving vital high protein, at goal, which is 40 mL an hour. The patient does have a right chest tube in place. White count 6.7, hemoglobin 7.3, hematocrit 21.8, and platelet count 237,000. Sodium 138, potassium 4.1, chlorides 113, CO2 20, BUN 25, and creatinine 0.57. Blood and sputum cultures are currently negative. Chest x-ray shows basilar atelectasis, and a right- sided chest tube. Progress note dated 11/07/2022. 62-year-old female seen today in room 263. She was admitted with a diagnosis of respiratory failure and aspiration pneumonia. She was admitted back on November 02. She was intubated on the same day. Unfortunately, she was successfully extubated yesterday. She is seen today in the same room. Currently, she is on 4 L by nasal cannula. She's getting saline at 100 mL an hour. Her pro- calcitonin level was 4.45. Continues on Zosyn. White count is 8.8, hemoglobin 7.2, hematocrit 20.9, within normal platelet count. Sodium 136, potassium 2.9 chlorides 110, CO2 22, BUN 13, creatinine 0.57. Chest x-ray today, revealed her right chest tube to be in place, without evident pneumothorax. Chest tube was taken off of suction, and placed on waterseal. A repeat chest x-ray will be done. Progress note dated 11/08/2022. 58-year-old female seen today in room 263. She was initially admitted with a diagnosis of respiratory failure and aspiration pneumonia. She was admitted back on November 02, intubation on the same day, and was successfully extubated on November 06. She had a chest tube placed on the right side for pneumothorax, and it was removed today. There was no significant pneumothorax seen on the chest x-ray, although, she may have had a small apical pneumothorax, in retrospect. There was no air leak. Clinically she is very stable. She is currently on 2 L of oxygen. She's getting saline at 50 mL an hour. White count 9.2, hemoglobin 7.5, hematocrit 22.3, with a normal platelet count. Sodium 129, potassium 3.7, chlorides 101, CO2 24, BUN 5, and creatinine 0.48. The chest x-ray after removal of the right-sided chest tube, shows a 10% apical pneumothorax. Objective - Vital Signs Vital signs: Vital Signs Temp 100.3 F H 11/08/22 08:00 Pulse 113 H 11/08/22 10:00 Resp 15 11/08/22 10:00 BP 117/75 11/08/22 10:00 Pulse Ox 95 11/08/22 10:00 FiO2 4 11/07/22 08:18 Intake & Output 11/07/22 11/08/22 11/08/22 18:59 06:59 18:59 Intake Total 1772 772 474 Output Total 1455 1790 700 Balance 317 -1018 -226 Weight 58.5 kg Intake: IV 1072 772 224 0.9 Normal Saline- 72 72 24 Pressure Bag Piperacillin-Tazobactam 3 100 100 .375 gm In Sodium Chloride 0.9% 100 ml @ 25 mls/hr IVPB Q8H [facility] Rx#: [id number] Sodium Chloride 0.9% 1, 900 600 200 000 ml @ 50 mls/hr IV . Q20H [facility] Rx#:[id number] Intake, IV Titration 300 Amount Potassium Chloride 20 meq 200 In Water For Injection 1 100ml.bag @ 50 mls/hr IVPB Q2H [facility] Rx#: [id number] Potassium Chloride 20 meq 100 In Water For Injection 1 100ml.bag @ 50 mls/hr IVPB Q2H [facility] Rx#: [id number] Oral 400 250 Output: Chest Tube Drainage 0 0 0 Chest Tube Right Right 0 0 0 Pleural/Mediastinal Urine 1455 1790 700 Other: Voiding Method Indwelling Catheter Indwelling Catheter Indwelling Catheter ABP, PAP, CO, CI - Last Documented Arterial Blood Pressure 108/63 - Exam No acute distress, awake and alert, currently on 2 L by nasal cannula. HEENT examination is grossly unremarkable. Neck supple. Full range of motion. No adenopathy thyromegaly or neck vein distention. Cardiovascular examination reveals regular rhythm rate. S1-S2 normal. No S3 or S4. No discernible murmur noted. Heart rate is 100 bpm. Lungs reveal scattered bilateral rhonchi. No wheezes. No crackles. Breath sounds are equal bilaterally. Saturations 96 %. Abdomen is soft, with bowel sounds. No masses or tenderness. Extremities are intact. No cyanosis clubbing or edema. Skin is without rash or lesion. Neurologic examination is brief but nonfocal. She has ongoing tongue thrusting. - Labs CBC & Chem 7: 11/08/22 04:09 11/08/22 08:40 Labs: Abnormal Lab Results - Last 24 Hours (Table) 11/07/22 11/08/22 11/08/22 Range/Units 15:50 04:09 04:09 RBC 2.71 L (3.80-5.40) m/uL Hgb 7.5 L (11.4-16.0) gm/dL Hct 22.3 L (34.0-46.0) % RDW 16.9 H (11.5-15.5) % Neutrophils # 7.8 H (1.3-7.7) k/uL Lymphocytes # 0.8 L (1.0-4.8) k/uL Sodium 128 L (137-145) mmol/L Potassium 2.5 L* (3.5-5.1) mmol/L BUN 6 L (7-17) mg/dL Creatinine 0.48 L (0.52-1.04) mg/dL POC Glucose (mg/dL) (70-110) mg/dL Calcium 7.2 L (8.4-10.2) mg/dL 11/08/22 11/08/22 Range/Units 06:38 08:40 RBC (3.80-5.40) m/uL Hgb (11.4-16.0) gm/dL Hct (34.0-46.0) % RDW (11.5-15.5) % Neutrophils # (1.3-7.7) k/uL Lymphocytes # (1.0-4.8) k/uL Sodium 129 L (137-145) mmol/L Potassium (3.5-5.1) mmol/L BUN 5 L (7-17) mg/dL Creatinine 0.48 L (0.52-1.04) mg/dL POC Glucose (mg/dL) 131 H (70-110) mg/dL Calcium 7.1 L (8.4-10.2) mg/dL Microbiology - Last 24 Hours (Table) 11/07/22 09:30 Gram Stain - Preliminary Sputum 11/02/22 04:00 Blood Culture - Final Blood 11/02/22 03:45 Blood Culture - Final Blood Assessment and Plan Assessment: Acute hypoxemic respiratory failure secondary to aspiration pneumonia, with intubation and mechanical ventilation beginning on 11/02/2022, S/P successful extubation on 11/06/2022. Hypotension, with sepsis/septic shock, currently off pressors. Normocytic anemia. Leukocytosis. History of bulimia. History of alcoholism and Wernicke's encephalopathy. Hypothyroidism. Acute aspiration pneumonia. Right-sided pneumothorax, following placement of a right subclavian triple-lumen catheter, chest tube removed 11/08/2022. Plan: Plan dated 11/06/2022. The patient is examined and evaluated, in room 263. The patient remains on the mechanical ventilator. The patient will have a daily interruption of sedation, and a spontaneous breathing trial. Based on the weaning parameters, as well as a cuff leak test, a decision will be made about possible extubation. Labs, x- rays, and medications are all reviewed. Chest x-rays also reviewed. The patient remains on Zosyn, for possible aspiration pneumonia. Additional recommendations and suggestions are forthcoming. Plan dated 11/07/2022. The patient was successfully extubated yesterday. Weaning parameters, blood gases, etc., were all very reasonable. The patient has done well post extubation. She currently remains on oxygen by nasal cannula at 4 L. She continues on Zosyn. Pro-calcitonin level was elevated. The patient's right- sided chest tube will be taken off of suction, and placed on waterseal. Repeat chest x-ray will be done. If there is no obvious pneumothorax, the chest tube will be discontinued. Additional recommendations and suggestions are forthcomin g. Prognosis is certainly guarded. The patient apparently resides at [facility] in [place], [place]. Plan dated 11/08/2022. The patient's right chest tube was removed today. The chest x-ray after chest tube removal showed a very small 10% right apical pneumothorax. The patient's small pneumothorax will be followed. Clinically, the patient's doing well. She continues on 2 L of oxygen. Labs, x-rays, medications are reviewed. From my perspective, the patient could be transferred out to the general medical floor without telemetry. We will continue to follow the patient and make recommendations, along the way. Time with Patient: Less than 30
--- NOTE | 2022-11-08 14:39 | P.PN ---
Subjective Progress Note Date: 11/08/22 patient is a 62-year-old lady with past medical history significant for alcohol use disorder, Wernicke's encephalopathy, hypertension, history of bulimia nervosa, hypothyroidism who was recently discharged from our hospital after being treated for nausea vomiting and pneumonia, was discharged on oral antibiotics. Patient came back to the ER for worsening cough and vomiting. Patient was having productive cough. her fever or chills. No complaint of shortness of breath. No coughing of palpitations. Initial lab work done in the ER showed WBC 15.3, hemoglobin 10.5, platelet count 278, sodium 132, potassium 3.7 BUN 14 magnesium 1.3 Chest x-ray done in the ER showed increased interstitial markings, greater on the right and mildly increased, few patchy opacities in the right lung Patient continued to have increasing nausea and vomiting in the ER, there was concern for patient to protect her airway so patient was intubated in the ER and was transferred to ICU 11/03. Patient seen and examined. WBC 11.5, hemoglobin 7.5, sodium 134, potassium 3.5, BUN 16, creatinine 0.41. Continues to be on vent 11/04. Patient seen and examined. Continues to be intubated. Patient off Levophed. Patient's urine output is minimal 11/05. Patient seen and examined. Labs done this morning showed WBC 7.6, hemoglobin 7, platelet count 236 sodium 138, potassium 3.8,. Currently on propofol, also started on fentanyl pushes 11/06. Patient seen and examined. Patient extubated. Currently on nasal cannula oxygen. She is alert 11/07. Patient seen and examined. No acute issues overnight. Potassium this morning is 2.5, replacement ordered. 11/08. Patient seen and examined. Chest tube removed this morning, repeat chest x-ray showed small apical pneumothorax will be followed clinically REVIEW OF SYSTEMS: Denies any chest pain. Denied any shortness of breath. No cough. Denies Any nausea, vomiting abdominal pain PHYSICAL EXAMINATION: GENERAL: The patient is alert HEENT: Pupils are round and equally reacting to light. EOMI. No scleral icterus. No conjunctival pallor. Normocephalic, atraumatic. No pharyngeal erythema. No thyromegaly. CARDIOVASCULAR: S1 and S2 present. No murmurs, rubs, or gallops. PULMONARY: Coarse breath some bilaterally, no wheeze audible, no crackles audible ABDOMEN: Soft, nontender, nondistended, normoactive bowel sounds. No palpable organomegaly. MUSCULOSKELETAL: No joint swelling or deformity. EXTREMITIES: No cyanosis, clubbing, or pedal edema. NEUROLOGICAL: Alert, moving all extremities. SKIN: No rashes. Assessment and plan Acute hypoxemic respiratory failure Aspiration pneumonia Hypotension and suspected septic shock Leukocytosis Anemia Hypomagnesemia History of bulimia History of alcoholism and Wernicke's encephalopathy Hypothyroidism Iatrogenic right-sided pneumothorax following right subclavian line placement attempt Monitor vital signs Monitor CBC Monitor CMP Strict I's and O's, Continue IV fluids Follow-up blood cultures Follow up on sputum cultures Aggressive bronchopulmonary hygiene Continue breathing treatments Continue Zosyn Critical care following ID following labs and medication were reviewed.. Continue same treatment. Continue with symptomatic treatment. Resume home medication. Monitor labs and vitals. DVT and GI prophylaxis. Further recommendations as per clinical course of the patient Dictation was produced using [employer] dictation software. please excuse any grammatical, word or spelling errors. Objective - Vital Signs Vital signs: Vital Signs Temp 100.3 F H 11/08/22 08:00 Pulse 103 H 11/08/22 14:00 Resp 23 11/08/22 14:00 BP 107/69 11/08/22 14:00 Pulse Ox 94 L 11/08/22 14:00 FiO2 4 11/07/22 08:18 Intake & Output 11/07/22 11/08/22 11/08/22 18:59 06:59 18:59 Intake Total 1772 772 686 Output Total 1455 1790 1090 Balance 317 1014 -404 Weight 58.5 kg 58.5 kg Intake: IV 1072 772 436 0.9 Normal Saline- 72 72 36 Pressure Bag Piperacillin-Tazobactam 3 100 100 .375 gm In Sodium Chloride 0.9% 100 ml @ 25 mls/hr IVPB Q8H [facility] Rx#: [id number] Sodium Chloride 0.9% 1, 900 600 400 000 ml @ 50 mls/hr IV . Q20H [facility] Rx#:[id number] Intake, IV Titration 300 Amount Potassium Chloride 20 meq 200 In Water For Injection 1 100ml.bag @ 50 mls/hr IVPB Q2H [facility] Rx#: [id number] Potassium Chloride 20 meq 100 In Water For Injection 1 100ml.bag @ 50 mls/hr IVPB Q2H [facility] Rx#: [id number] Oral 400 250 Output: Chest Tube Drainage 0 0 0 Chest Tube Right Right 0 0 0 Pleural/Mediastinal Urine 1455 1790 1090 Other: Voiding Method Indwelling Catheter Indwelling Catheter Indwelling Catheter ABP, PAP, CO, CI - Last Documented Arterial Blood Pressure 108/63 - Labs CBC & Chem 7: 11/08/22 04:09 11/08/22 08:40 Labs: Abnormal Lab Results - Last 24 Hours (Table) 11/07/22 11/08/22 11/08/22 Range/Units 15:50 04:09 04:09 RBC 2.71 L (3.80-5.40) m/uL Hgb 7.5 L (11.4-16.0) gm/dL Hct 22.3 L (34.0-46.0) % RDW 16.9 H (11.5-15.5) % Neutrophils # 7.8 H (1.3-7.7) k/uL Lymphocytes # 0.8 L (1.0-4.8) k/uL Sodium 128 L (137-145) mmol/L Potassium 2.5 L* (3.5-5.1) mmol/L BUN 6 L (7-17) mg/dL Creatinine 0.48 L (0.52-1.04) mg/dL POC Glucose (mg/dL) (70-110) mg/dL Calcium 7.2 L (8.4-10.2) mg/dL 11/08/22 11/08/22 Range/Units 06:38 08:40 RBC (3.80-5.40) m/uL Hgb (11.4-16.0) gm/dL Hct (34.0-46.0) % RDW (11.5-15.5) % Neutrophils # (1.3-7.7) k/uL Lymphocytes # (1.0-4.8) k/uL Sodium 129 L (137-145) mmol/L Potassium (3.5-5.1) mmol/L BUN 5 L (7-17) mg/dL Creatinine 0.48 L (0.52-1.04) mg/dL POC Glucose (mg/dL) 131 H (70-110) mg/dL Calcium 7.1 L (8.4-10.2) mg/dL Microbiology - Last 24 Hours (Table) 11/07/22 09:30 Gram Stain - Preliminary Sputum Sputum Culture - Preliminary 11/07/22 11:00 Urine Culture - Final Urine,Catheterized 11/02/22 04:00 Blood Culture - Final Blood 11/02/22 03:45 Blood Culture - Final Blood
[2022-11-08 17:08] LABS: Glucose,Whole Blood 106 mg/dL (70-110)
[2022-11-08] MEDS: SODIUM CHLORIDE 0.9% 1,000 ML IV SCH (18:09)
[2022-11-08 19:56] LABS: Glucose,Whole Blood 99 mg/dL (70-110)
[2022-11-08] MEDS: traZODone HCL 50 MG TAB PO SCH (21:55)
[2022-11-09] MEDS: PIPERACILLIN-TAZOBACTAM 3.375 GM in SODIUM CHLORIDE 0.9% 100 ML IVPB SCH ×3 (05:15→21:13)
[2022-11-09 06:09] LABS: Anisocytosis Slight; Basophils % (A) 0 %; Eosinophils # (A) 0.1 k/uL (0-0.7); Eosinophils % (A) 2 %; HCT 22.2 % (34.0-46.0); HGB 7.3 gm/dL (11.4-16.0); Lymphocytes # (A) 0.6 k/uL (1.0-4.8); Lymphocytes % (A) 11 %; MCH 27.5 pg (25.0-35.0); MCHC 32.8 g/dL (31.0-37.0); MCV 83.7 fL (80.0-100.0); Mean Platelet Volume 8.4; Monocytes # (A) 0.3 k/uL (0-1.0); Monocytes % (A) 6 %; Neutrophils # (A) 4.2 k/uL (1.3-7.7); Neutrophils % (A) 80 %; Platelet Count 249 k/uL (150-450); RBC 2.66 m/uL (3.80-5.40); RDW 17.1 % (11.5-15.5); WBC 5.2 k/uL (3.8-10.6)
[2022-11-09 06:34] LABS: African American GFR (CKD) >90 (>60 ml/min/1.73 sqM); Anion Gap 3 mmol/L; Blood Urea Nitrogen 3 mg/dL (7-17); Calcium 7.4 mg/dL (8.4-10.2); Carbon Dioxide 25 mmol/L (22-30); Chloride 103 mmol/L (98-107); Glucose 95 mg/dL (74-99); Non-African American GFR(CKD) >90 (>60 ml/min/1.73 sqM); Potassium 3.6 mmol/L (3.5-5.1); Sodium 131 mmol/L (137-145)
[2022-11-09 06:54] LABS: Glucose,Whole Blood 100 mg/dL (70-110)
[2022-11-09 06:58] LABS: Glucose,Whole Blood 99 mg/dL (70-110)
[2022-11-09] MEDS: INSULIN ASPART (NovoLOG) 100 UNIT/ML VIAL SQ SCH ×4 (07:40→22:41)
--- NOTE | 2022-11-09 07:43 | XR ---
EXAMINATION TYPE: XR chest 1V portable DATE OF EXAM: 11/09/2022 5:39 AM COMPARISON: Chest radiographs from 11/08/2022 TECHNIQUE: XR chest 1V portable Portable AP radiograph of the chest. CLINICAL INDICATION:Female, 62 years old with history of right pneumothorax; FINDINGS: Patient is rotated which limits evaluation. Lungs/Pleura: Trace right pleural effusion. No focal consolidation. No sizable pneumothorax identifie d. Pulmonary vascularity: Unremarkable. Heart/mediastinum: Cardiomediastinal silhouette is relatively stable. Musculoskeletal: No acute osseous pathology. Right shoulder prosthesis Lines: Stable right-sided central venous line. IMPRESSION: 1. No appreciable sizable pneumothorax. 2. Trace right pleural effusion.
[2022-11-09] MEDS ORDERED: POTASSIUM CHLORIDE ER 20 MEQ TAB.ER PO SCH (08:00)
[2022-11-09] MEDS: IPRATROPIUM-ALBUTEROL 3 ML NEB INHALATION SCH ×4 (08:15→20:32)
[2022-11-09] MEDS: ENOXAPARIN 40 MG/0.4 ML SYRINGE SQ SCH (09:37)
[2022-11-09] MEDS: LEVOTHYROXINE IVP 100 MCG/5 ML VIAL IV SCH (09:38)
[2022-11-09] MEDS: PANTOPRAZOLE 40 MG/10 ML VIAL IVP SCH ×2 (09:38→21:14)
[2022-11-09 11:16] LABS: Glucose,Whole Blood 101 mg/dL (70-110)
--- NOTE | 2022-11-09 11:39 | P.PN ---
Subjective Progress Note Date: 11/09/22 Principal diagnosis: Respiratory failure. Acute hypoxic respiratory failure secondary to aspiration pneumonia with sepsis and septic shock. I am seeing this patient in consultation today 11/02/2022 in the intensive care unit for acute hypoxemic respiratory failure related to aspiration. Patient is a 62-year-old white female with past medical history significant for alcohol ab use, wernickes encephalopathy, hypertension, hypothyroidism, bulimia, and resides at an [facility]. Patient was just recently admitted to the hospital for acute kidney injury and electrolyte abnormalities, and was discharged on October 31 back to her ECF, [facility]. The patient is currently intubated and unable to provide information. Patient was reportedly brought into the emergency room early this morning with intractable nausea and vomiting. Emesis was described as coffee ground. The patient did end up aspirating, and was in some severe respiratory distress. She was intubated by the ER physician with a #7 ET tube. There was reported upper airway edema, and she was a difficult intubation. She was started on high-dose steroids. Initial post-intubation chest x-ray shows increased interstitial markings with patchy right lung opacities. Endotracheal tube was 5 cm above the laila and could be advanced 1-2 cm. The orogastric tube was within the proximal stomach. Current ventilator settings are assist control, respiratory rate 16, tidal 450, FiO2 100%, PEEP of 5. ABGs on these setting show a pO2 greater than 400, pCO2 39, and pH of 7.47. FiO2 was decreased at 40%. Patient is sedated on 30 mg/kg/m of propofol. She still quite anxious and asynchronous with the mechanical ventilator. This will be titrated for synchrony and appropriate RASS. Peak pressures are 29 and plateau pressure are 15, there is some airway resistance, and presumptive brown gastric fluid within the ET tube and circuit. Blood pressure was reportedly hypotensive in the emergency room. She's received 1 L normal saline bolus in the emergency room, and has a second normal saline bolus infusing currently. BP is currently normotensive. Orogastric tube is currently to low intermittent suction. There is coffee ground gastric output. She was empirically started on Unasyn. Nonenhanced CT of the chest, abdomen, pelvis demonstrated patchy bilateral airspace opacities greater on the right, left pelvic hernia containing bowel loops without evidence of obstruction, moderately distended fluid-filled sto mach, and a nonobstructing right renal calculus. CBC on arrival shows a WBC count of 15.3, hemoglobin 10.5, hematocrit 31.8, platelets 278. BMP on arrival shows sodium 132, potassium 3.7, chloride 93, serum bicarb 28, BUN 14, creatinine 0.5, glucose 116. Lactic acid level was 2. A Reich catheter will be inserted. Patient will be monitored in the intensive care unit. Reevaluated today 11/03/2022, patient remains currently intubated. She is on assist control rate of 16 volume 400 FiO2 35% and PEEP of 5 she was earlier on rate of 18 and FiO2 40% and these were changed. ABG showed a pO2 of 138, P CO2 of 35 pH of 7.45 and then setting changes were made as above. Patient dropped her hemoglobin admitted down to 7.5, she did have positive guaiac/gastric secretions hence Protonix was increased to twice a day and no need to transfuse any blood at this point. Platelets are 219. Electrolytes are normal potassium is 3.5 being corrected as per protocol. Renal profile is normal. Chest x-ray showed small tiny right apical pneumothorax, scattered patchy infiltrates right more so than left, with aspiration pneumonia endotracheal tube was noted to be admitted to distal and we recommended following that she will at least 2cm proximally patient remains on broad-spectrum antibiotics, and/Zosyn. Patient remains on GI and DVT prophylaxis, she is requiring a small dose of norepinephrine today at 0.04 mcg/kg/m she is on propofol at 60 mcg/kg/m IV fluids 100 mL/h, and enteral feeding will be started today. Reevaluated, patient remains in the ICU, intubated and mechanically ventilated. She is on assist control rate of 16 tidal volume 400 FiO2 35% PEEP of 5, ABG showed a pO2 of 125 pCO2 31 pH of 7.42. Her propofol is a 65 mcg/kg/m, she is now off norepinephrine, urine output remains marginal, blood pressure is marginal #7 recommending another liter of fluid boluses in the form of 0.9 normal saline. Continue IV fluid at 100 mL per hour, advised to have a CVP monitor on this patient today. In the meantime the patient remains on Zosyn for aspiration pneumonia, chest x-ray continues to show bilateral infiltrates right more so than left. She is receiving Zosyn for aspiration. Neurologically the patient still gets extremely agitated once she is off sedation, hence could not get an adequate trial of weaning off sedation because she is extremely restless agitated, I plan to consider using Precedex in the next 24 hours, and give the patient trials of weaning possibly tomorrow. Depending how well she does with Precedex. WBC count is 11.6 hemoglobin is holding at 7.1 platelets are 250,000. Basic metabolic profile and renal profile are normal; pro calcitonin level is 4.45 Patient was reevaluated today on 11/05/2022, remains in the ICU, intubated and mechanically ventilated. Patient was extremely agitated last night, hence fentanyl was added and she is now on fentanyl at 0.5 mcg/kg/h she remains on propofol down to 45 mg/kg/m she is off norepinephrine, she did receive Lasix last night 40 mg IV push and she diuresed about 2 L. Patient remains on vital HTN at 20/40. Remains on mechanical ventilation with assist control rate of 16 tidal volume 400 FiO2 35% and PEEP of 5 ABG showed a pO2 of 109 pCO2 31 pH of 7.4 CVP today is 6. Chest x-ray is showing improvement in her bilateral bibasilar infiltrates/aspiration pneumonia. WBC count today is 7.6 hemoglobin is 7, basic metabolic profile and renal profile is normal Progress note dated 11/06/2022. This is a 62-year-old female who was admitted with a diagnosis of respiratory failure and aspiration pneumonia. She was admitted back on November 02. She was intubated on the same day. The patient remains on the mechanical ventilator, volume assist control, rate 16, tidal volume 400, FiO2 35%, apply. Arterial blood gases show pO2 of 1:15, pCO2 34, and a pH is 7.42. The patient remains on saline at 100 mL an hour, propofol 60 mcg/kg/m, and fentanyl 0.5 g/kg/h. The patient's also receiving vital high protein, at goal, which is 40 mL an hour. The patient does have a right chest tube in place. White count 6.7, hemoglobin 7.3, hematocrit 21.8, and platelet count 237,000. Sodium 138, potassium 4.1, chlorides 113, CO2 20, BUN 25, and creatinine 0.57. Blood and sputum cultures are currently negative. Chest x-ray shows basilar atelectasis, and a right- sided chest tube. Progress note dated 11/07/2022. 62-year-old female seen today in room 263. She was admitted with a diagnosis of respiratory failure and aspiration pneumonia. She was admitted back on November 02. She was intubated on the same day. Unfortunately, she was successfully extubated yesterday. She is seen today in the same room. Currently, she is on 4 L by nasal cannula. She's getting saline at 100 mL an hour. Her pro- calcitonin level was 4.45. Continues on Zosyn. White count is 8.8, hemoglobin 7.2, hematocrit 20.9, within normal platelet count. Sodium 136, potassium 2.9 chlorides 110, CO2 22, BUN 13, creatinine 0.57. Chest x-ray today, revealed her right chest tube to be in place, without evident pneumothorax. Chest tube was taken off of suction, and placed on waterseal. A repeat chest x-ray will be done. Progress note dated 11/08/2022. 58-year-old female seen today in room 263. She was initially admitted with a diagnosis of respiratory failure and aspiration pneumonia. She was admitted back on November 02, intubation on the same day, and was successfully extubated on November 06. She had a chest tube placed on the right side for pneumothorax, and it was removed today. There was no significant pneumothorax seen on the chest x-ray, although, she may have had a small apical pneumothorax, in retrospect. There was no air leak. Clinically she is very stable. She is currently on 2 L of oxygen. She's getting saline at 50 mL an hour. White count 9.2, hemoglobin 7.5, hematocrit 22.3, with a normal platelet count. Sodium 129, potassium 3.7, chlorides 101, CO2 24, BUN 5, and creatinine 0.48. The chest x-ray after removal of the right-sided chest tube, shows a 10% apical pneumothorax. Progress note dated 11/09/2022. 58-year-old female seen in room 263. She was admitted with a diagnosis of respiratory failure and aspiration pneumonia. She was admitted back on November 02, intubated on the same day, and was extubated successfully and November 06. The patient had a right chest tube placed because of a pneumothorax, which was removed yesterday. Currently, the patient is on room air. She's getting saline at 50 mL an hour. The patient's Zosyn will be discontinued after today. She did have a midline IV placed. White count 5.2, hemoglobin 7.3, hematocrit 22.2, and platelet count 249,000. Sodium 131, potassium 3.6, chlorides 103, CO2 25, BUN 3, and creatinine normal. Urine, blood, and sputum sampling has been negative. Chest x-ray did not reveal any pneumothorax. Objective - Vital Signs Vital signs: Vital Signs Temp 98.2 F 11/09/22 08:00 Pulse 99 11/09/22 08:35 Resp 22 11/09/22 08:00 BP 115/65 11/09/22 10:00 Pulse Ox 93 L 11/09/22 10:00 FiO2 4 11/07/22 08:18 Intake & Output 11/08/22 11/09/22 11/09/22 18:59 06:59 18:59 Intake Total 1209 800 Output Total 1615 1750 Balance -406 -950 Weight 58.5 kg 56.9 kg Intake: IV 839 800 0.9 Normal Saline- 39 Pressure Bag Piperacillin-Tazobactam 3 100 200 .375 gm In Sodium Chloride 0.9% 100 ml @ 25 mls/hr IVPB Q8H LIVE Rx#: [id number] Sodium Chloride 0.9% 1, 700 600 000 ml @ 50 mls/hr IV . Q20H LIVE Rx#:[id number] Oral 370 Output: Chest Tube Drainage 0 Chest Tube Right Right 0 Pleural/Mediastinal Urine 1615 1750 Other: Voiding Method Indwelling Catheter Indwelling Catheter Indwelling Catheter ABP, PAP, CO, CI - Last Documented Arterial Blood Pressure 108/63 - Exam No acute distress, awake and alert, currently on 2 L by nasal cannula. HEENT examination is grossly unremarkable. Neck supple. Full range of motion. No adenopathy thyromegaly or neck vein distention. Cardiovascular examination reveals regular rhythm rate. S1-S2 normal. No S3 or S4. No discernible murmur noted. Heart rate is 94 bpm. Lungs reveal scattered bilateral rhonchi. No wheezes. No crackles. Breath sounds are equal bilaterally. Saturations 94 %. Abdomen is soft, with bowel sounds. No masses or tenderness. Extremities are intact. No cyanosis clubbing or edema. Skin is without rash or lesion. Neurologic examination is brief but nonfocal. - Labs CBC & Chem 7: 11/09/22 05:42 11/09/22 05:42 Labs: Abnormal Lab Results - Last 24 Hours (Table) 11/09/22 11/09/22 Range/Units 05:42 05:42 RBC 2.66 L (3.80-5.40) m/uL Hgb 7.3 L (11.4-16.0) gm/dL Hct 22.2 L (34.0-46.0) % RDW 17.1 H (11.5-15.5) % Lymphocytes # 0.6 L (1.0-4.8) k/uL Sodium 131 L (137-145) mmol/L BUN 3 L (7-17) mg/dL Calcium 7.4 L (8.4-10.2) mg/dL Microbiology - Last 24 Hours (Table) 11/07/22 09:30 Gram Stain - Final Sputum Sputum Culture - Final 11/07/22 10:10 Blood Culture - Preliminary Blood 11/07/22 10:00 Blood Culture - Preliminary Blood 11/07/22 11:00 Urine Culture - Final Urine,Catheterized Assessment and Plan Assessment: Acute hypoxemic respiratory failure secondary to aspiration pneumonia, with intubation and mechanical ventilation beginning on 11/02/2022, S/P successful extubation on 11/06/2022. Hypotension, with sepsis/septic shock, currently off pressors. Normocytic anemia. Leukocytosis. History of bulimia. History of alcoholism and Wernicke's encephalopathy. Hypothyroidism. Acute aspiration pneumonia. Right-sided pneumothorax, following placement of a right subclavian triple-lumen catheter, chest tube removed 11/08/2022. Plan: Plan dated 11/06/2022. The patient is examined and evaluated, in room 263. The patient remains on the mechanical ventilator. The patient will have a daily interruption of sedation, and a spontaneous breathing trial. Based on the weaning parameters, as well as a cuff leak test, a decision will be made about possible extubation. Labs, x- rays, and medications are all reviewed. Chest x-rays also reviewed. The patient remains on Zosyn, for possible aspiration pneumonia. Additional recommendations and suggestions are forthcoming. Plan dated 11/07/2022. The patient was successfully extubated yesterday. Weaning parameters, blood gases, etc., were all very reasonable. The patient has done well post extubation. She currently remains on oxygen by nasal cannula at 4 L. She continues on Zosyn. Pro-calcitonin level was elevated. The patient's right- sided chest tube will be taken off of suction, and placed on waterseal. Repeat chest x-ray will be done. If there is no obvious pneumothorax, the chest tube will be discontinued. Additional recommendations and suggestions are forthcoming. Prognosis is certainly guarded. The patient apparently resides at [facility] in [place], [place]. Plan dated 11/08/2022. The patient's right chest tube was removed today. The chest x-ray after chest tube removal showed a very small 10% right apical pneumothorax. The patient's small pneumothorax will be followed. Clinically, the patient's doing well. She continues on 2 L of oxygen. Labs, x-rays, medications are reviewed. From my perspective, the patient could be transferred out to the general medical floor without telemetry. We will continue to follow the patient and make recommendations, along the way. Plan dated 11/09/2022. The patient appears to be doing relatively well. The chest tube was removed yesterday. Chest x-ray today does not show a pneumothorax. The patient is currently on 2 L of oxygen by nasal cannula. We'll DC the Zosyn after today's dose. She's getting saline at 50 mL an hour. The patient could be transferred out to the general medical floor. Labs, x-rays, and medications are reviewed. The patient's overall prognosis remains guarded. Time with Patient: Less than 30
--- NOTE | 2022-11-09 13:00 | P.PN ---
Subjective Progress Note Date: 11/09/22 patient is a 62-year-old lady with past medical history significant for alcohol use disorder, Wernicke's encephalopathy, hypertension, history of bulimia nervosa, hypothyroidism who was recently discharged from our hospital after being treated for nausea vomiting and pneumonia, was discharged on oral antibiotics. Patient came back to the ER for worsening cough and vomiting. Patient was having productive cough. her fever or chills. No complaint of shortness of breath. No coughing of palpitations. Initial lab work done in the ER showed WBC 15.3, hemoglobin 10.5, platelet count 278, sodium 132, potassium 3.7 BUN 14 magnesium 1.3 Chest x-ray done in the ER showed increased interstitial markings, greater on the right and mildly increased, few patchy opacities in the right lung Patient continued to have increasing nausea and vomiting in the ER, there was concern for patient to protect her airway so patient was intubated in the ER and was transferred to ICU 11/03. Patient seen and examined. WBC 11.5, hemoglobin 7.5, sodium 134, potassium 3.5, BUN 16, creatinine 0.41. Continues to be on vent 11/04. Patient seen and examined. Continues to be intubated. Patient off Levophed. Patient's urine output is minimal 11/05. Patient seen and examined. Labs done this morning showed WBC 7.6, hemoglobin 7, platelet count 236 sodium 138, potassium 3.8,. Currently on propofol, also started on fentanyl pushes 11/06. Patient seen and examined. Patient extubated. Currently on nasal cannula oxygen. She is alert 11/07. Patient seen and examined. No acute issues overnight. Potassium this morning is 2.5, replacement ordered. 11/08. Patient seen and examined. Chest tube removed this morning, repeat chest x-ray showed small apical pneumothorax will be followed clinically 11/09. Patient seen and examined. Currently not requiring oxygen, on room air. Denies any nausea or vomiting. Possible transfer out of ICU REVIEW OF SYSTEMS: Denies any chest pain. Denied any shortness of breath. No cough. Denies Any nausea, vomiting abdominal pain PHYSICAL EXAMINATION: GENERAL: The patient is alert HEENT: Pupils are round and equally reacting to light. EOMI. No scleral icterus. No conjunctival pallor. Normocephalic, atraumatic. No pharyngeal erythema. No thyromegaly. CARDIOVASCULAR: S1 and S2 present. No murmurs, rubs, or gallops. PULMONARY: Coarse breath some bilaterally, no wheeze audible, no crackles audible ABDOMEN: Soft, nontender, nondistended, normoactive bowel sounds. No palpable or ganomegaly. MUSCULOSKELETAL: No joint swelling or deformity. EXTREMITIES: No cyanosis, clubbing, or pedal edema. NEUROLOGICAL: Alert, moving all extremities. SKIN: No rashes. Assessment and plan Acute hypoxemic respiratory failure Aspiration pneumonia Hypotension and suspected septic shock Leukocytosis Anemia Hypomagnesemia History of bulimia History of alcoholism and Wernicke's encephalopathy Hypothyroidism Iatrogenic right-sided pneumothorax following right subclavian line placement attempt Monitor vital signs Monitor CBC Monitor CMP Strict I's and O's, Continue IV fluids Follow-up blood cultures Follow up on sputum cultures Aggressive bronchopulmonary hygiene Continue breathing treatments DC fluids Continue Zosyn Critical care following ID following Possible transfer out of ICU labs and medication were reviewed.. Continue same treatment. Continue with symptomatic treatment. Resume home medication. Monitor labs and vitals. DVT and GI prophylaxis. Further recommendations as per clinical course of the patient Dictation was produced using [employer] dictation software. please excuse any grammatical, word or spelling errors. Objective - Vital Signs Vital signs: Vital Signs Temp 98.2 F 11/09/22 08:00 Pulse 100 11/09/22 12:20 Resp 22 11/09/22 08:00 BP 115/65 11/09/22 10:00 Pulse Ox 93 L 11/09/22 10:00 FiO2 4 11/07/22 08:18 Intake & Output 11/08/22 11/09/22 11/09/22 18:59 06:59 18:59 Intake Total 1209 800 Output Total 1615 1750 Balance -406 -950 Weight 58.5 kg 56.9 kg Intake: IV 839 800 0.9 Normal Saline- 39 Pressure Bag Piperacillin-Tazobactam 3 100 200 .375 gm In Sodium Chloride 0.9% 100 ml @ 25 mls/hr IVPB Q8H LIVE Rx#: [id number] Sodium Chloride 0.9% 1, 700 600 000 ml @ 50 mls/hr IV . Q20H LIVE Rx#:[id number] Oral 370 Output: Chest Tube Drainage 0 Chest Tube Right Right 0 Pleural/Mediastinal Urine 1615 1750 Other: Voiding Method Indwelling Catheter Indwelling Catheter Indwelling Catheter ABP, PAP, CO, CI - Last Documented Arterial Blood Pressure 108/63 - Labs CBC & Chem 7: 11/09/22 05:42 11/09/22 05:42 Labs: Abnormal Lab Results - Last 24 Hours (Table) 11/09/22 11/09/22 Range/Units 05:42 05:42 RBC 2.66 L (3.80-5.40) m/uL Hgb 7.3 L (11.4-16.0) gm/dL Hct 22.2 L (34.0-46.0) % RDW 17.1 H (11.5-15.5) % Lymphocytes # 0.6 L (1.0-4.8) k/uL Sodium 131 L (137-145) mmol/L BUN 3 L (7-17) mg/dL Calcium 7.4 L (8.4-10.2) mg/dL Microbiology - Last 24 Hours (Table) 11/07/22 09:30 Gram Stain - Final Sputum Sputum Culture - Final 11/07/22 10:10 Blood Culture - Preliminary Blood 11/07/22 10:00 Blood Culture - Preliminary Blood 11/07/22 11:00 Urine Culture - Final Urine,Catheterized
[2022-11-09 16:36] LABS: Glucose,Whole Blood 112 mg/dL (70-110)
--- NOTE | 2022-11-09 17:55 | P.PN ---
Subjective Progress Note Date: 11/08/22 Principal diagnosis: Aspiration pneumonia Patient is a 62-year-old female with a past medical history negative for hypertension reflux bulimia hypothyroidism recently admitted to hospital for acute kidney injury and electrolyte imbalance and was discharged on 10/31/2022 p atient has been brought back to the hospital within 24 hours with intractable nausea vomiting emesis patient did have acute respiratory distress and evidence of aspiration pneumonia requiring intubation and admission to the ICU , patient has been subsequently extubated on 11/06/2022 on today's evaluation that is 11/08/2022 patient did have a low-grade fever 100.6 at midnight and 100.3 this morning, patient is a breathing comfortably on her 2 L nasal cannula oxygen but denies having any chest pain or shortness of breath To have a congested cough not bringing up any sputum no abdominal pain and no diarrhea. Patient did have a white count of 9.2 hemoglobin 7.5 creatinine 0.48, blood and sputum culture have been negative so far Objective - Vital Signs Vital signs: Vital Signs Temp 100.3 F H 11/08/22 08:00 Pulse 98 11/08/22 12:05 Resp 25 H 11/08/22 11:00 BP 121/68 11/08/22 11:00 Pulse Ox 96 11/08/22 11:00 FiO2 4 11/07/22 08:18 Intake & Output 11/07/22 11/08/22 11/08/22 18:59 06:59 18:59 Intake Total 1772 772 527 Output Total 1455 1790 790 Balance 095 -0369 -601 Weight 58.5 kg Intake: IV 1072 772 277 0.9 Normal Saline- 72 72 27 Pressure Bag Piperacillin-Tazobactam 3 100 100 .375 gm In Sodium Chloride 0.9% 100 ml @ 25 mls/hr IVPB Q8H LIVE Rx#: [id number] Sodium Chloride 0.9% 1, 900 600 250 000 ml @ 50 mls/hr IV . Q20H LIVE Rx#:[id number] Intake, IV Titration 300 Amount Potassium Chloride 20 meq 200 In Water For Injection 1 100ml.bag @ 50 mls/hr IVPB Q2H LIVE Rx#: [id number] Potassium Chloride 20 meq 100 In Water For Injection 1 100ml.bag @ 50 mls/hr IVPB Q2H LIVE Rx#: [id number] Oral 400 250 Output: Chest Tube Drainage 0 0 0 Chest Tube Right Right 0 0 0 Pleural/Mediastinal Urine 1455 1790 790 Other: Voiding Method Indwelling Catheter Indwelling Catheter Indwelling Catheter ABP, PAP, CO, CI - Last Documented Arterial Blood Pressure 108/63 - Exam GENERAL DESCRIPTION: A middle-aged female lying in bed in no distress RESPIRATORY SYSTEM: Unlabored breathing , decreased breath sounds at bases HEART: S1 S2 regular rate and rhythm , ABDOMEN: Soft , no tenderness EXTREMITIES: No edema feet - Labs CBC & Chem 7: 11/09/22 05:42 11/09/22 05:42 Labs: Abnormal Lab Results - Last 24 Hours (Table) 11/07/22 11/08/22 11/08/22 Range/Units 15:50 04:09 04:09 RBC 2.71 L (3.80-5.40) m/uL Hgb 7.5 L (11.4-16.0) gm/dL Hct 22.3 L (34.0-46.0) % RDW 16.9 H (11.5-15.5) % Neutrophils # 7.8 H (1.3-7.7) k/uL Lymphocytes # 0.8 L (1.0-4.8) k/uL Sodium 128 L (137-145) mmol/L Potassium 2.5 L* (3.5-5.1) mmol/L BUN 6 L (7-17) mg/dL Creatinine 0.48 L (0.52-1.04) mg/dL POC Glucose (mg/dL) (70-110) mg/dL Calcium 7.2 L (8.4-10.2) mg/dL 11/08/22 11/08/22 Range/Units 06:38 08:40 RBC (3.80-5.40) m/uL Hgb (11.4-16.0) gm/dL Hct (34.0-46.0) % RDW (11.5-15.5) % Neutrophils # (1.3-7.7) k/uL Lymphocytes # (1.0-4.8) k/uL Sodium 129 L (137-145) mmol/L Potassium (3.5-5.1) mmol/L BUN 5 L (7-17) mg/dL Creatinine 0.48 L (0.52-1.04) mg/dL POC Glucose (mg/dL) 131 H (70-110) mg/dL Calcium 7.1 L (8.4-10.2) mg/dL Microbiology - Last 24 Hours (Table) 11/07/22 11:00 Urine Culture - Final Urine,Catheterized 11/07/22 09:30 Gram Stain - Preliminary Sputum 11/02/22 04:00 Blood Culture - Final Blood 11/02/22 03:45 Blood Culture - Final Blood Assessment and Plan (1) Aspiration pneumonia Current Visit: Yes Status: Acute Code(s): J69.0 - PNEUMONITIS DUE TO INHALATION OF FOOD AND VOMIT SNOMED Code(s): 456334473 Plan: 1patient was in the hospital with sepsis in this patient who with tachycardia hypotension requiring pressor support patient white count source likely aspiration pneumonia in this patient recent discharge from hospital will need to cover for the resistant gram-negative to be the likely pathogen 2-blood and sputum cultures Are so far negative. 3patient has shown clinical improvement and the culture has been negative so far we will continue patient on Zosyn and monitor clinical course closely along with aspiration precaution Dictation was produced using [employer] dictation software. please excuse any grammatical, word or spelling errors. Time with Patient: Less than 30
--- NOTE | 2022-11-09 17:57 | P.PN ---
Subjective Progress Note Date: 11/09/22 Principal diagnosis: Aspiration pneumonia Patient is a 62-year-old female with a past medical history negative for hypertension reflux bulimia hypothyroidism recently admitted to hospital for acute kidney injury and electrolyte imbalance and was discharged on 10/31/2022 p atient has been brought back to the hospital within 24 hours with intractable nausea vomiting emesis patient did have acute respiratory distress and evidence of aspiration pneumonia requiring intubation and admission to the ICU , patient has been subsequently extubated on 11/06/2022 on today's evaluation that is 11/09/2022 patient is afebrile this morning patient is breathing comfortably on 2 L nasal cannula oxygen patient denies having any chest pain or shortness of breath she did have a cough not bringing up any sputum no nausea no pain no abdominal pain and no diarrhea. Patient white count is normal at 5.2 creatinine 0.53 Objective - Vital Signs Vital signs: Vital Signs Temp 98.2 F 11/09/22 08:00 Pulse 100 11/09/22 12:20 Resp 22 11/09/22 08:00 BP 115/65 11/09/22 10:00 Pulse Ox 93 L 11/09/22 10:00 FiO2 4 11/07/22 08:18 Intake & Output 11/08/22 11/09/22 11/09/22 18:59 06:59 18:59 Intake Total 1209 800 Output Total 1615 1750 Balance -406 -950 Weight 58.5 kg 56.9 kg Intake: IV 839 800 0.9 Normal Saline- 39 Pressure Bag Piperacillin-Tazobactam 3 100 200 .375 gm In Sodium Chloride 0.9% 100 ml @ 25 mls/hr IVPB Q8H LIVE Rx#: [id number] Sodium Chloride 0.9% 1, 700 600 000 ml @ 50 mls/hr IV . Q20H LIVE Rx#:[id number] Oral 370 Output: Chest Tube Drainage 0 Chest Tube Right Right 0 Pleural/Mediastinal Urine 1615 1750 Other: Voiding Method Indwelling Catheter Indwelling Catheter Indwelling Catheter ABP, PAP, CO, CI - Last Documented Arterial Blood Pressure 108/63 - Exam GENERAL DESCRIPTION: A middle-aged female lying in bed in no distress RESPIRATORY SYSTEM: Unlabored breathing , decreased breath sounds at bases HEART: S1 S2 regular rate and rhythm , ABDOMEN: Soft , no tenderness EXTREMITIES: No edema feet - Labs CBC & Chem 7: 08/17/23 05:42 11/09/22 05:42 Labs: Abnormal Lab Results - Last 24 Hours (Table) 11/09/22 11/09/22 Range/Units 05:42 05:42 RBC 2.66 L (3.80-5.40) m/uL Hgb 7.3 L (11.4-16.0) gm/dL Hct 22.2 L (34.0-46.0) % RDW 17.1 H (11.5-15.5) % Lymphocytes # 0.6 L (1.0-4.8) k/uL Sodium 131 L (137-145) mmol/L BUN 3 L (7-17) mg/dL Calcium 7.4 L (8.4-10.2) mg/dL Microbiology - Last 24 Hours (Table) 11/07/22 09:30 Gram Stain - Final Sputum Sputum Culture - Final 11/07/22 10:10 Blood Culture - Preliminary Blood 11/07/22 10:00 Blood Culture - Preliminary Blood 11/07/22 11:00 Urine Culture - Final Urine,Catheterized Assessment and Plan (1) Aspiration pneumonia Current Visit: Yes Status: Acute Code(s): J69.0 - PNEUMONITIS DUE TO INHALATION OF FOOD AND VOMIT SNOMED Code(s): 054951413 Plan: 1patient was in the hospital with sepsis in this patient who with tachycardia hypotension requiring pressor support patient white count source likely aspiration pneumonia in this patient recent discharge from hospital will need to cover for the resistant gram-negative to be the likely pathogen 2-blood and sputum cultures Are so far negative. 3patient has shown clinical improvement and the patient low-grade fever have resolved this morning patient white count is normal culture has been negative so far we will keep the patient on Zosyn while inpatient hopefully transition to oral antibiotics on discharge Dictation was produced using [employer] dictation software. please excuse any grammatical, word or spelling errors. Time with Patient: Less than 30
[2022-11-09] MEDS: SODIUM CHLORIDE 0.9% 1,000 ML IV SCH (18:45)
[2022-11-09] MEDS: traZODone HCL 50 MG TAB PO SCH (21:14)
[2022-11-09 21:41] LABS: Glucose,Whole Blood 103 mg/dL (70-110)
[2022-11-09 22:21] VITALS: RESP 16
[2022-11-10] MEDS: PIPERACILLIN-TAZOBACTAM 3.375 GM in SODIUM CHLORIDE 0.9% 100 ML IVPB SCH (05:51)
[2022-11-10 06:14] LABS: Anisocytosis Slight; Basophils % (A) 0 %; Eosinophils # (A) 0.1 k/uL (0-0.7); Eosinophils % (A) 2 %; HCT 22.8 % (34.0-46.0); HGB 7.8 gm/dL (11.4-16.0); Lymphocytes # (A) 0.7 k/uL (1.0-4.8); Lymphocytes % (A) 12 %; MCH 28.4 pg (25.0-35.0); MCHC 34.2 g/dL (31.0-37.0); Mean Platelet Volume 8.1; Monocytes # (A) 0.3 k/uL (0-1.0); Monocytes % (A) 5 %; Neutrophils # (A) 4.9 k/uL (1.3-7.7); Neutrophils % (A) 80 %; Platelet Count 249 k/uL (150-450); RBC 2.75 m/uL (3.80-5.40); RDW 16.9 % (11.5-15.5)
[2022-11-10 06:24] LABS: ALT 18 U/L (4-34); AST 18 U/L (14-36); African American GFR (CKD) >90 (>60 ml/min/1.73 sqM); Albumin 2.3 g/dL (3.5-5.0); Alkaline Phosphatase 43 U/L (38-126); Anion Gap 5 mmol/L; Blood Urea Nitrogen 5 mg/dL (7-17); Calcium 7.4 mg/dL (8.4-10.2); Carbon Dioxide 25 mmol/L (22-30); Chloride 100 mmol/L (98-107); Glucose 90 mg/dL (74-99); Non-African American GFR(CKD) >90 (>60 ml/min/1.73 sqM); Potassium 3.3 mmol/L (3.5-5.1); Sodium 130 mmol/L (137-145); Total Bilirubin 0.4 mg/dL (0.2-1.3); Total Protein 4.7 g/dL (6.3-8.2)
[2022-11-10] MEDS: IPRATROPIUM-ALBUTEROL 3 ML NEB INHALATION SCH (08:14)
--- NOTE | 2022-11-10 10:10 | P.PN ---
Subjective Progress Note Date: 11/10/22 Principal diagnosis: Respiratory failure. Acute hypoxic respiratory failure secondary to aspiration pneumonia with sepsis and septic shock. I am seeing this patient in consultation today 11/02/2022 in the intensive care unit for acute hypoxemic respiratory failure related to aspiration. Patient is a 62-year-old white female with past medical history significant for alcohol ab use, wernickes encephalopathy, hypertension, hypothyroidism, bulimia, and resides at an [facility]. Patient was just recently admitted to the hospital for acute kidney injury and electrolyte abnormalities, and was discharged on October 31 back to her ECF, [facility]. The patient is currently intubated and unable to provide information. Patient was reportedly brought into the emergency room early this morning with intractable nausea and vomiting. Emesis was described as coffee ground. The patient did end up aspirating, and was in some severe respiratory distress. She was intubated by the ER physician with a #7 ET tube. There was reported upper airway edema, and she was a difficult intubation. She was started on high-dose steroids. Initial post-intubation chest x-ray shows increased interstitial markings with patchy right lung opacities. Endotracheal tube was 5 cm above the laila and could be advanced 1-2 cm. The orogastric tube was within the proximal stomach. Current ventilator settings are assist control, respiratory rate 16, tidal 450, FiO2 100%, PEEP of 5. ABGs on these setting show a pO2 greater than 400, pCO2 39, and pH of 7.47. FiO2 was decreased at 40%. Patient is sedated on 30 mg/kg/m of propofol. She still quite anxious and asynchronous with the mechanical ventilator. This will be titrated for synchrony and appropriate RASS. Peak pressures are 29 and plateau pressure are 15, there is some airway resistance, and presumptive brown gastric fluid within the ET tube and circuit. Blood pressure was reportedly hypotensive in the emergency room. She's received 1 L normal saline bolus in the emergency room, and has a second normal saline bolus infusing currently. BP is currently normotensive. Orogastric tube is currently to low intermittent suction. There is coffee ground gastric output. She was empirically started on Unasyn. Nonenhanced CT of the chest, abdomen, pelvis demonstrated patchy bilateral airspace opacities greater on the right, left pelvic hernia containing bowel loops without evidence of obstruction, moderately distended fluid-filled sto mach, and a nonobstructing right renal calculus. CBC on arrival shows a WBC count of 15.3, hemoglobin 10.5, hematocrit 31.8, platelets 278. BMP on arrival shows sodium 132, potassium 3.7, chloride 93, serum bicarb 28, BUN 14, creatinine 0.5, glucose 116. Lactic acid level was 2. A Reich catheter will be inserted. Patient will be monitored in the intensive care unit. Reevaluated today 11/03/2022, patient remains currently intubated. She is on assist control rate of 16 volume 400 FiO2 35% and PEEP of 5 she was earlier on rate of 18 and FiO2 40% and these were changed. ABG showed a pO2 of 138, P CO2 of 35 pH of 7.45 and then setting changes were made as above. Patient dropped her hemoglobin admitted down to 7.5, she did have positive guaiac/gastric secretions hence Protonix was increased to twice a day and no need to transfuse any blood at this point. Platelets are 219. Electrolytes are normal potassium is 3.5 being corrected as per protocol. Renal profile is normal. Chest x-ray showed small tiny right apical pneumothorax, scattered patchy infiltrates right more so than left, with aspiration pneumonia endotracheal tube was noted to be admitted to distal and we recommended following that she will at least 2cm proximally patient remains on broad-spectrum antibiotics, and/Zosyn. Patient remains on GI and DVT prophylaxis, she is requiring a small dose of norepinephrine today at 0.04 mcg/kg/m she is on propofol at 60 mcg/kg/m IV fluids 100 mL/h, and enteral feeding will be started today. Reevaluated, patient remains in the ICU, intubated and mechanically ventilated. She is on assist control rate of 16 tidal volume 400 FiO2 35% PEEP of 5, ABG showed a pO2 of 125 pCO2 31 pH of 7.42. Her propofol is a 65 mcg/kg/m, she is now off norepinephrine, urine output remains marginal, blood pressure is marginal #7 recommending another liter of fluid boluses in the form of 0.9 normal saline. Continue IV fluid at 100 mL per hour, advised to have a CVP monitor on this patient today. In the meantime the patient remains on Zosyn for aspiration pneumonia, chest x-ray continues to show bilateral infiltrates right more so than left. She is receiving Zosyn for aspiration. Neurologically the patient still gets extremely agitated once she is off sedation, hence could not get an adequate trial of weaning off sedation because she is extremely restless agitated, I plan to consider using Precedex in the next 24 hours, and give the patient trials of weaning possibly tomorrow. Depending how well she does with Precedex. WBC count is 11.6 hemoglobin is holding at 7.1 platelets are 250,000. Basic metabolic profile and renal profile are normal; pro calcitonin level is 4.45 Patient was reevaluated today on 11/05/2022, remains in the ICU, intubated and mechanically ventilated. Patient was extremely agitated last night, hence fentanyl was added and she is now on fentanyl at 0.5 mcg/kg/h she remains on propofol down to 45 mg/kg/m she is off norepinephrine, she did receive Lasix last night 40 mg IV push and she diuresed about 2 L. Patient remains on vital HTN at 20/40. Remains on mechanical ventilation with assist control rate of 16 tidal volume 400 FiO2 35% and PEEP of 5 ABG showed a pO2 of 109 pCO2 31 pH of 7.4 CVP today is 6. Chest x-ray is showing improvement in her bilateral bibasilar infiltrates/aspiration pneumonia. WBC count today is 7.6 hemoglobin is 7, basic metabolic profile and renal profile is normal Progress note dated 11/06/2022. This is a 62-year-old female who was admitted with a diagnosis of respiratory failure and aspiration pneumonia. She was admitted back on November 02. She was intubated on the same day. The patient remains on the mechanical ventilator, volume assist control, rate 16, tidal volume 400, FiO2 35%, apply. Arterial blood gases show pO2 of 1:15, pCO2 34, and a pH is 7.42. The patient remains on saline at 100 mL an hour, propofol 60 mcg/kg/m, and fentanyl 0.5 g/kg/h. The patient's also receiving vital high protein, at goal, which is 40 mL an hour. The patient does have a right chest tube in place. White count 6.7, hemoglobin 7.3, hematocrit 21.8, and platelet count 237,000. Sodium 138, potassium 4.1, chlorides 113, CO2 20, BUN 25, and creatinine 0.57. Blood and sputum cultures are currently negative. Chest x-ray shows basilar atelectasis, and a right- sided chest tube. Progress note dated 11/07/2022. 62-year-old female seen today in room 263. She was admitted with a diagnosis of respiratory failure and aspiration pneumonia. She was admitted back on November 02. She was intubated on the same day. Unfortunately, she was successfully extubated yesterday. She is seen today in the same room. Currently, she is on 4 L by nasal cannula. She's getting saline at 100 mL an hour. Her pro- calcitonin level was 4.45. Continues on Zosyn. White count is 8.8, hemoglobin 7.2, hematocrit 20.9, within normal platelet count. Sodium 136, potassium 2.9 chlorides 110, CO2 22, BUN 13, creatinine 0.57. Chest x-ray today, revealed her right chest tube to be in place, without evident pneumothorax. Chest tube was taken off of suction, and placed on waterseal. A repeat chest x-ray will be done. Progress note dated 11/08/2022. 58-year-old female seen today in room 263. She was initially admitted with a diagnosis of respiratory failure and aspiration pneumonia. She was admitted back on November 02, intubation on the same day, and was successfully extubated on November 06. She had a chest tube placed on the right side for pneumothorax, and it was removed today. There was no significant pneumothorax seen on the chest x-ray, although, she may have had a small apical pneumothorax, in retrospect. There was no air leak. Clinically she is very stable. She is currently on 2 L of oxygen. She's getting saline at 50 mL an hour. White count 9.2, hemoglobin 7.5, hematocrit 22.3, with a normal platelet count. Sodium 129, potassium 3.7, chlorides 101, CO2 24, BUN 5, and creatinine 0.48. The chest x-ray after removal of the right-sided chest tube, shows a 10% apical pneumothorax. Progress note dated 11/09/2022. 58-year-old female seen in room 263. She was admitted with a diagnosis of respiratory failure and aspiration pneumonia. She was admitted back on November 02, intubated on the same day, and was extubated successfully and November 06. The patient had a right chest tube placed because of a pneumothorax, which was removed yesterday. Currently, the patient is on room air. She's getting saline at 50 mL an hour. The patient's Zosyn will be discontinued after today. She did have a midline IV placed. White count 5.2, hemoglobin 7.3, hematocrit 22.2, and platelet count 249,000. Sodium 131, potassium 3.6, chlorides 103, CO2 25, BUN 3, and creatinine normal. Urine, blood, and sputum sampling has been negative. Chest x-ray did not reveal any pneumothorax. Progress note dated 11/10/2022. 58-year-old female seen again in room 263. Currently, she is on room air. She's not receiving any IV fluids. We will discontinue the triple lumen catheter. We'll also discontinue her Zosyn. Hopefully, we can get the patient transferred back to the shelter, in [place]. White count 6, hemoglobin 7.8, hematocrit 22.8, and platelet count was normal. Sodium 1:30, potassium 3.3, chlorides 100, CO2 25, BUN 5, and creatinine 0.47. All blood urine and sputum sampling has been negative. Objective - Vital Signs Vital signs: Vital Signs Temp 97.8 F 11/09/22 22:00 Pulse 95 11/10/22 08:24 Resp 16 11/09/22 22:00 BP 112/88 11/10/22 02:00 Pulse Ox 96 11/10/22 08:28 FiO2 4 11/07/22 08:18 Intake & Output 11/09/22 11/10/22 11/10/22 18:59 06:59 18:59 Intake Total 700 700 Output Total 500 1300 Balance 200 -600 Intake: IV 700 700 Piperacillin-Tazobactam 3 200 200 .375 gm In Sodium Chloride 0.9% 100 ml @ 25 mls/hr IVPB Q8H LIVE Rx#: [id number] Sodium Chloride 0.9% 1, 500 500 000 ml @ 50 mls/hr IV . Q20H LIVE Rx#:[id number] Output: Urine 500 1300 Other: Voiding Method Indwelling Catheter Indwelling Catheter # Voids 2 4 # Bowel Movements 2 ABP, PAP, CO, CI - Last Documented Arterial Blood Pressure 108/63 - Exam No acute distress, awake and alert, currently on room air. Saturations 96%. HEENT examination is grossly unremarkable. Neck supple. Full range of motion. No adenopathy thyromegaly or neck vein d istention. Cardiovascular examination reveals regular rhythm rate. S1-S2 normal. No S3 or S4. No discernible murmur noted. Heart rate is 95 bpm. Lungs reveal scattered bilateral rhonchi. No wheezes. No crackles. Breath sounds are equal bilaterally. Saturations 96 %. Abdomen is soft, with bowel sounds. No masses or tenderness. Extremities are intact. No cyanosis clubbing or edema. Skin is without rash or lesion. Neurologic examination is brief but nonfocal. - Labs CBC & Chem 7: 11/10/22 06:03 11/10/22 06:03 Labs: Abnormal Lab Results - Last 24 Hours (Table) 11/09/22 11/10/22 11/10/22 Range/Units 16:34 06:03 06:03 RBC 2.75 L (3.80-5.40) m/uL Hgb 7.8 L (11.4-16.0) gm/dL Hct 22.8 L (34.0-46.0) % RDW 16.9 H (11.5-15.5) % Lymphocytes # 0.7 L (1.0-4.8) k/uL Sodium 130 L (137-145) mmol/L Potassium 3.3 L (3.5-5.1) mmol/L BUN 5 L (7-17) mg/dL Creatinine 0.47 L (0.52-1.04) mg/dL POC Glucose (mg/dL) 112 H (70-110) mg/dL Calcium 7.4 L (8.4-10.2) mg/dL Total Protein 4.7 L (6.3-8.2) g/dL Albumin 2.3 L (3.5-5.0) g/dL Microbiology - Last 24 Hours (Table) 11/07/22 10:10 Blood Culture - Preliminary Blood 11/07/22 10:00 Blood Culture - Preliminary Blood 11/07/22 09:30 Gram Stain - Final Sputum Sputum Culture - Final Assessment and Plan Assessment: Acute hypoxemic respiratory failure secondary to aspiration pneumonia, with intubation and mechanical ventilation beginning on 11/02/2022, S/P successful extubation on 11/06/2022. Hypotension, with sepsis/septic shock, currently off pressors. Normocytic anemia. Leukocytosis. History of bulimia. History of alcoholism and Wernicke's encephalopathy. Hypothyroidism. Acute aspiration pneumonia. Right-sided pneumothorax, following placement of a right subclavian triple-lumen catheter, chest tube removed 11/08/2022. Plan: Plan dated 11/06/2022. The patient is examined and evaluated, in room 263. The patient remains on the mechanical ventilator. The patient will have a daily interruption of sedation, and a spontaneous breathing trial. Based on the weaning parameters, as well as a cuff leak test, a decision will be made about possible extubation. Labs, x- rays, and medications are all reviewed. Chest x-rays also reviewed. The patient remains on Zosyn, for possible aspiration pneumonia. Additional recommendations and suggestions are forthcoming. Plan dated 11/07/2022. The patient was successfully extubated yesterday. Weaning parameters, blood gases, etc., were all very reasonable. The patient has done well post extubation. She currently remains on oxygen by nasal cannula at 4 L. She continues on Zosyn. Pro-calcitonin level was elevated. The patient's right- sided chest tube will be taken off of suction, and placed on waterseal. Repeat chest x-ray will be done. If there is no obvious pneumothorax, the chest tube will be discontinued. Additional recommendations and suggestions are forthcoming. Prognosis is certainly guarded. The patient apparently resides at [facility] in [place], [place]. Plan dated 11/08/2022. The patient's right chest tube was removed today. The chest x-ray after chest tube removal showed a very small 10% right apical pneumothorax. The patient's small pneumothorax will be followed. Clinically, the patient's doing well. She continues on 2 L of oxygen. Labs, x-rays, medications are reviewed. From my perspective, the patient could be transferred out to the general medical floor without telemetry. We will continue to follow the patient and make recommendations, along the way. Plan dated 11/09/2022. The patient appears to be doing relatively well. The chest tube was removed yesterday. Chest x-ray today does not show a pneumothorax. The patient is currently on 2 L of oxygen by nasal cannula. We'll DC the Zosyn after today's dose. She's getting saline at 50 mL an hour. The patient could be transferred out to the general medical floor. Labs, x-rays, and medications are reviewed. The patient's overall prognosis remains guarded. Plan dated 11/10/2022. The patient is seen today in room 263. She's doing much better. She's on room air. She's not receiving any IV fluids. The triple lumen catheter will be discontinued. We'll also discontinue the Zosyn. All cultures are negative. We will attempt to get the patient transferred back to the shelter, in [facility]. Today we will refill her medication list, and discontinue all unnecessary medications. The patient overall prognosis remains guarded. Time with Patient: Less than 30
[2022-11-10] MEDS: INSULIN ASPART (NovoLOG) 100 UNIT/ML VIAL SQ SCH (10:16)
[2022-11-10] MEDS: POTASSIUM CHLORIDE ER 20 MEQ TAB.ER PO SCH (10:18)
[2022-11-10 11:11] VITALS: BP 107/76; PULSE 89; TEMP 98.9
[2022-11-10 11:28] LABS: Glucose,Whole Blood 98 mg/dL (70-110)
[2022-11-10 11:40] VITALS: BMI 20.8
--- NOTE | 2022-11-10 12:49 | P.DS ---
Providers Date of admission: 11/02/22 05:45 Expected date of discharge: 11/10/22 Attending physician: Candace Johnson Consults: 11/02/22 05:44 Consult Physician Stat Consulting Provider: Alessandra Avendano Consult Reason/Comments: PNA, resp failure Do you want consulting provider notified?: Yes 11/02/22 09:26 Consult Physician Urgent Consulting Provider: Allyssa Montero Consult Reason/Comments: Sepsis, pneumonia Do you want consulting provider notified?: Yes Primary care physician: Kwaku Vergara Hospital Course: Discharge diagnoses; Acute hypoxemic respiratory failure Aspiration pneumonia Hypotension and suspected septic shock Leukocytosis Anemia Hypomagnesemia History of bulimia History of alcoholism and Wernicke's encephalopathy Hypothyroidism Iatrogenic right-sided pneumothorax following right subclavian line placement attempt Hospital course; patient is a 62-year-old lady with past medical history significant for alcohol use disorder, Wernicke's encephalopathy, hypertension, history of bulimia nervosa, hypothyroidism who was recently discharged from our hospital after being treated for nausea vomiting and pneumonia, was discharged on oral antibiotics. Patient came back to the ER for worsening cough and vomiting. Patient was having productive cough. her fever or chills. No complaint of shortness of breath. No coughing of palpitations. Initial lab work done in the ER showed WBC 15.3, hemoglobin 10.5, platelet count 278, sodium 132, potassium 3.7 BUN 14 magnesium 1.3 Chest x-ray done in the ER showed increased interstitial markings, greater on the right and mildly increased, few patchy opacities in the right lung Patient continued to have increasing nausea and vomiting in the ER, there was concern for patient to protect her airway so patient was intubated in the ER and was transferred to ICU 11/03. Patient seen and examined. WBC 11.5, hemoglobin 7.5, sodium 134, potassium 3.5, BUN 16, creatinine 0.41. Continues to be on vent 11/04. Patient seen and examined. Continues to be intubated. Patient off Levophed. Patient's urine output is minimal 11/05. Patient seen and examined. Labs done this morning showed WBC 7.6, hemoglobin 7, platelet count 236 sodium 138, potassium 3.8,. Currently on propofol, also started on fentanyl pushes 11/06. Patient seen and examined. Patient extubated. Currently on nasal cannula oxygen. She is alert 11/07. Patient seen and examined. No acute issues overnight. Potassium this morning is 2.5, replacement ordered. 11/08. Patient seen and examined. Chest tube removed this morning, repeat chest x-ray showed small apical pneumothorax will be followed clinically 11/09. Patient seen and examined. Currently not requiring oxygen, on room air. Denies any nausea or vomiting. Possible transfer out of ICU 11/10. Patient seen and examined with WBC 6, hemoglobin 7.8, sodium 130, potas sium 3.3. Pulmonology cleared the patient for discharge. Being discharged on oral antibiotics per ID PHYSICAL EXAMINATION: GENERAL: The patient is alert and oriented x3, not in any acute distress. Well developed, well nourished. HEENT: Pupils are round and equally reacting to light. EOMI. No scleral icterus. No conjunctival pallor. Normocephalic, atraumatic. No pharyngeal erythema. No thyromegaly. CARDIOVASCULAR: S1 and S2 present. No murmurs, rubs, or gallops. PULMONARY: Coarse breath some bilaterally, no wheeze GI; no tenderness, no guarding MUSCULOSKELETAL: No joint swelling or deformity. EXTREMITIES: No cyanosis, clubbing, or pedal edema. NEUROLOGICAL: Gross neurological examination did not reveal any focal deficits. SKIN: No rashes. Dictation was produced using [employer] dictation software. please excuse any grammatical, word or spelling errors. Patient Condition at Discharge: Good Plan - Discharge Summary Discharge Rx Participant: No New Discharge Prescriptions: Continue Calcium Carbonate [Tums] 1,000 mg PO Q8H PRN PRN Reason: Indigestion Sucralfate [Carafate] 1 gm PO TID Potassium Chloride ER [K-Dur 20] 20 meq PO DAILY Metoprolol Tartrate [Lopressor] 12.5 mg PO DAILY traZODone HCL 150 mg PO HS Sodium Chloride Tab 1 gm PO DAILY Pantoprazole [Protonix] 40 mg PO DAILY bisacodyL [Dulcolax] 10 mg PO DAILY PRN PRN Reason: Constipation Acetaminophen Tab [Tylenol] 650 mg PO Q8H PRN PRN Reason: Pain Ondansetron [Zofran] 4 mg PO Q8H PRN PRN Reason: Nausea Mag Hydrox/Aluminum Hyd/Simeth [Mylanta Maximum Strength Liq] 20 ml PO Q8H PRN PRN Reason: Heartburn guaiFENesin [guaiFENesin Oral Solution] 200 mg PO Q4H PRN PRN Reason: Cough LORazepam [Ativan] 0.5 mg PO BID Mirtazapine 45 mg PO HS Lactulose 20 gm PO DAILY Folic Acid 0.8 mg PO DAILY polyethylene glycoL 3350 [Miralax] 17 gm PO DAILY Levothyroxine Sodium [Synthroid] 125 mcg PO DAILY QUEtiapine FUMARATE [SEROquel XR] 300 mg PO HS Gabapentin [Neurontin] 200 mg PO BID Lactobacillus Acidophilus [Acidophilus Probiotic] 1 cap PO DAILY Discontinued cefUROXime axetiL [Cefuroxime] 500 mg PO BID 3 Days #6 tab Discharge Medication List Calcium Carbonate [Tums] 1,000 mg PO Q8H PRN 10/29/22 [History] Folic Acid 0.8 mg PO DAILY 10/29/22 [History] Gabapentin [Neurontin] 200 mg PO BID 10/29/22 [History] LORazepam [Ativan] 0.5 mg PO BID 10/29/22 [History] Lactulose 20 gm PO DAILY 10/29/22 [History] Levothyroxine Sodium [Synthroid] 125 mcg PO DAILY 10/29/22 [History] Mag Hydrox/Aluminum Hyd/Simeth [Mylanta Maximum Strength Liq] 20 ml PO Q8H PRN 10/29/22 [History] Metoprolol Tartrate [Lopressor] 12.5 mg PO DAILY 10/29/22 [History] Mirtazapine 45 mg PO HS 10/29/22 [History] Ondansetron [Zofran] 4 mg PO Q8H PRN 10/29/22 [History] Pantoprazole [Protonix] 40 mg PO DAILY 10/29/22 [History] Potassium Chloride ER [K-Dur 20] 20 meq PO DAILY 10/29/22 [History] QUEtiapine FUMARATE [SEROquel XR] 300 mg PO HS 10/29/22 [History] Sodium Chloride Tab 1 gm PO DAILY 10/29/22 [History] Sucralfate [Carafate] 1 gm PO TID 10/29/22 [History] bisacodyL [Dulcolax] 10 mg PO DAILY PRN 10/29/22 [History] guaiFENesin [guaiFENesin Oral Solution] 200 mg PO Q4H PRN 10/29/22 [History] polyethylene glycoL 3350 [Miralax] 17 gm PO DAILY 10/29/22 [History] traZODone HCL 150 mg PO HS 10/29/22 [History] Acetaminophen Tab [Tylenol] 650 mg PO Q8H PRN 11/02/22 [History] Lactobacillus Acidophilus [Acidophilus Probiotic] 1 cap PO DAILY 11/02/22 [History] Follow up Appointment(s)/Referral(s): Kwaku Vergara MD [Primary Care Provider] - 1-2 days Allyssa Montero MD [STAFF PHYSICIAN] - 1 Week Discharge Disposition: TRANSFER TO SNF/ECF
[2022-11-10] MEDS ORDERED: ACETAMINOPHEN TAB 325 MG TAB PO STA (14:12)
--- NOTE | 2022-11-10 15:37 | P.PN ---
Subjective Progress Note Date: 11/10/22 Principal diagnosis: Aspiration pneumonia Patient is a 62-year-old female with a past medical history negative for hypertension reflux bulimia hypothyroidism recently admitted to hospital for acute kidney injury and electrolyte imbalance and was discharged on 10/31/2022 p atient has been brought back to the hospital within 24 hours with intractable nausea vomiting emesis patient did have acute respiratory distress and evidence of aspiration pneumonia requiring intubation and admission to the ICU , patient has been subsequently extubated on 11/06/2022 on today's evaluation that is 11/10/2022 patient remains to be afebrile, the patient is breathing comfortably on room air, patient denies having any chest pain or shortness of breath she did have a cough not bringing up any sputum no nausea no pain no abdominal pain and no diarrhea. Patient white count is normal at 6.0, creatinine 0.47 Objective - Vital Signs Vital signs: Vital Signs Temp 98.9 F 11/10/22 08:15 Pulse 95 11/10/22 08:24 Resp 16 11/10/22 08:15 BP 107/76 11/10/22 08:15 Pulse Ox 96 11/10/22 08:28 FiO2 4 11/07/22 08:18 Intake & Output 11/09/22 11/10/22 11/10/22 18:59 06:59 18:59 Intake Total 700 700 480 Output Total 500 1300 Balance 200 -600 480 Weight 56.9 kg Intake: IV 700 700 Piperacillin-Tazobactam 3 200 200 .375 gm In Sodium Chloride 0.9% 100 ml @ 25 mls/hr IVPB Q8H [facility] Rx#: [id number] Sodium Chloride 0.9% 1, 500 500 000 ml @ 50 mls/hr IV . Q20H [facility]IVE Rx#:[id number] Oral 480 Output: Urine 500 1300 Other: Voiding Method Indwelling Catheter Indwelling Catheter Diaper Incontinent # Voids 2 4 # Bowel Movements 2 1 ABP, PAP, CO, CI - Last Documented Arterial Blood Pressure 108/63 - Exam GENERAL DESCRIPTION: A middle-aged female lying in bed in no distress RESPIRATORY SYSTEM: Unlabored breathing , decreased breath sounds at bases HEART: S1 S2 regular rate and rhythm , ABDOMEN: Soft , no tenderness EXTREMITIES: No edema feet - Labs CBC & Chem 7: 11/10/22 06:03 11/10/22 06:03 Labs: Abnormal Lab Results - Last 24 Hours (Table) 11/09/22 11/10/22 11/10/22 Range/Units 16:34 06:03 06:03 RBC 2.75 L (3.80-5.40) m/uL Hgb 7.8 L (11.4-16.0) gm/dL Hct 22.8 L (34.0-46.0) % RDW 16.9 H (11.5-15.5) % Lymphocytes # 0.7 L (1.0-4.8) k/uL Sodium 130 L (137-145) mmol/L Potassium 3.3 L (3.5-5.1) mmol/L BUN 5 L (7-17) mg/dL Creatinine 0.47 L (0.52-1.04) mg/dL POC Glucose (mg/dL) 112 H (70-110) mg/dL Calcium 7.4 L (8.4-10.2) mg/dL Total Protein 4.7 L (6.3-8.2) g/dL Albumin 2.3 L (3.5-5.0) g/dL Microbiology - Last 24 Hours (Table) 11/07/22 10:10 Blood Culture - Preliminary Blood 11/07/22 10:00 Blood Culture - Preliminary Blood Assessment and Plan (1) Aspiration pneumonia Current Visit: Yes Status: Acute Code(s): J69.0 - PNEUMONITIS DUE TO INHALATION OF FOOD AND VOMIT SNOMED Code(s): 985049957 Plan: 1patient was in the hospital with sepsis in this patient who with tachycardia hypotension requiring pressor support patient white count source likely aspiration pneumonia in this patient recent discharge from hospital will need to cover for the resistant gram-negative to be the likely pathogen 2-blood and sputum cultures Are so far negative. 3patient has shown clinical improvement and the patient white count is normal culture has bnegative, we will consider short course of oral Augmentin on discharge discussed with the admitting team Dictation was produced using [employer] dictation software. please excuse any grammatical, word or spelling errors. Time with Patient: Less than 30
[2022-11-11] MEDS ORDERED: LEVOTHYROXINE 125 MCG TAB PO SCH (06:30)
[2022-11-11] MEDS ORDERED: PANTOPRAZOLE 40 MG TABLET PO SCH (07:30)
== END 2022-11-10 16:00 | DRG 871 ==
LOC: EC 02:33 → 2SICU 05:45
PROVIDERS: ADMIT Hospitalist; ATTEND Hospitalist
PROC: 03HY32Z Insertion of Monitoring Device into Upper Artery, Percutaneous Approach (ICD-10-PCS; principal; 2022-11-02)
PROC: 4A133B1 Monitoring of Arterial Pressure, Peripheral, Percutaneous Approach (ICD-10-PCS; 2022-11-02)
PROC: 4A133J1 Monitoring of Arterial Pulse, Peripheral, Percutaneous Approach (ICD-10-PCS; 2022-11-02)
PROC: 02HV33Z Insertion of Infusion Device into Superior Vena Cava, Percutaneous Approach (ICD-10-PCS; 2022-11-02)
PROC: 0W9930Z Drainage of Right Pleural Cavity with Drainage Device, Percutaneous Approach (ICD-10-PCS; 2022-11-02)
PROC: 0BH17EZ Insertion of Endotracheal Airway into Trachea, Via Natural or Artificial Opening (ICD-10-PCS; 2022-11-02)
PROC: 5A1945Z Respiratory Ventilation, 24-96 Consecutive Hours (ICD-10-PCS; 2022-11-02)
PROC: 3E0 Administration, Physiological Systems and Anatomical Regions, Introduction (ICD-10-PCS; 2022-11-02)
DX: A41.9 Sepsis, unspecified organism (principal); J69.0 Pneumonitis due to inhalation of food and vomit; J96.01 Acute respiratory failure with hypoxia; R65.21 Severe sepsis with septic shock; F50.2 Bulimia nervosa; J44.0 Chronic obstructive pulmonary disease with (acute) lower respiratory infection; J95.811 Postprocedural pneumothorax; N17.9 Acute kidney failure, unspecified; D64.9 Anemia, unspecified; E03.9 Hypothyroidism, unspecified; E83.42 Hypomagnesemia; F32.A Depression, unspecified; F41.9 Anxiety disorder, unspecified; I10 Essential (primary) hypertension; K21.9 Gastro-esophageal reflux disease without esophagitis; F10.11 Alcohol abuse, in remission; T88.4XXA Failed or difficult intubation, initial encounter; Z79.890 Hormone replacement therapy; Z79.899 Other long term (current) drug therapy; Z86.59 Personal history of other mental and behavioral disorders; Z88.8 Allergy status to other drugs, medicaments and biological substances
CPT/HCPCS: 31500; 36415; 36600; 71045; 71250; 74176; 80048; 80053; 81003; 82271; 82330; 82805; 83036; 83605; 83735; 84100; 84132; 84145; 85025; 85610; 85730; 86140; 87040; 87070; 87086; 87205; 93005; 94002; 94003; 94640; 96361; 96365; 96367; 96375; 99291